=== PATIENT | male | born 1960 | race Caucasian/White ===

== ENCOUNTER 2018-06-25 06:02 | Inpatient (IN) | payer MEDICARE, OTHER ==
--- NOTE | 2018-06-25 06:47 | ER Document Report ---
ED GI/ - General Mode of Arrival: Medic Information source: Patient <LEANDRO COLLINS - Last Filed: 06/25/18 09:03> <FAY LOZADA - Last Filed: 06/25/18 09:28> - General Stated Complaint: WEAKNESS Time Seen by Provider: 06/25/18 06:32 Notes: 58-year-old male who presents to the emergency department today with complaints of "feeling sick". Patient further describes this by stating that he has had generalized myalgias and vomiting for the last 3 or 4 days. Patient states he has been having normal bowel movements. Patient denies any diarrhea, fevers, chest pain, shortness of breath, abdominal pain, or blood in his vomit or stool. (DENNIS,LEANDRO) - Related Data Allergies/Adverse Reactions: No Known Allergies Allergy (Unverified 06/25/18 06:51) Past Medical History - General Information source: Patient - Social History Smoking Status: Never Smoker Family History: Reviewed & Not Pertinent - Past Medical History Cardiac Medical History: Reports: Hx Hypertension Neurological Medical History: Reports: Hx Cerebrovascular Accident Endocrine Medical History: Reports: Hx Diabetes Mellitus Type 2 <LEANDRO COLLINS - Last Filed: 06/25/18 09:03> Review of Systems - Review of Systems Constitutional: denies: Fever EENT: No symptoms reported Cardiovascular: denies: Chest pain Respiratory: denies: Short of breath Gastrointestinal: See HPI, Vomiting. denies: Abdominal pain, Diarrhea Genitourinary: No symptoms reported Male Genitourinary: No symptoms reported Musculoskeletal: See HPI, Muscle pain Skin: No symptoms reported Hematologic/Lymphatic: No symptoms reported Neurological/Psychological: No symptoms reported -: Yes All other systems reviewed and negative <LEANDRO COLLINS - Last Filed: 06/25/18 09:03> Physical Exam <LEANDRO COLLINS - Last Filed: 06/25/18 09:03> <FAY LOZADA - Last Filed: 06/25/18 09:28> - Vital signs Vitals: Temp 98.7 F 06/25/18 06:50 - Notes Notes: PHYSICAL EXAM GENERAL: Alert, interacts well. No acute distress. Singultus intermittently. HEAD: Normocephalic, atraumatic. EYES: Pupils equal, round, and reactive to light. Extraocular movements intact. ENT: Dry oral mucosa, tongue midline. NECK: Full range of motion. Supple. Trachea midline. LUNGS: Clear to auscultation bilaterally, no wheezes, rales, or rhonchi. No respiratory distress. HEART: Regular rate and rhythm. No murmurs, gallops, or rubs. ABDOMEN: Soft, non-tender. Non-distended. Bowel sounds present in all 4 quadrants. No guarding, rigidity, or rebound. EXTREMITIES: Moves all 4 extremities spontaneously. No edema, radial and dorsalis pedis pulses 2/4 bilaterally. No cyanosis. NEUROLOGICAL: Alert and oriented x3. Normal speech. Mild right sided facial droop. PSYCH: Normal affect, normal mood. SKIN: Warm, dry, normal turgor. No rashes or lesions noted. (LEANDRO COLLINS) Course - Laboratory Result Diagrams: 06/25/18 07:50 06/25/18 07:50 <LEANDRO COLLINS - Last Filed: 06/25/18 09:03> - Laboratory Result Diagrams: 06/25/18 07:50 06/25/18 07:50 <FAY LOZADA - Last Filed: 06/25/18 09:28> - Re-evaluation Re-evalutation: 06/25/18 09:20 CBC does not show any leukocytosis, there is a mild anemia with hemoglobin 12.9 , CO2 is low at 19, there is acute renal failure with a BUN of 69 and a creatinine of 2.87, patient has a vague recollection of being told he had trouble with his kidneys in the past but no recollection of severe renal failure and does not follow with a roaster operator. Cardiac troponin is negative at 0.017. EKG is nonischemic. Vomiting has stopped and he is thirsty. Discussed the patient with Dr. Sequeira and he agrees to admit the patient to his service on the medical floor for vomiting and acute renal failure. (FAY LOZADA ) - Vital Signs Vital signs: Temp Pulse Resp BP Pulse Ox 98.7 F 06/25/18 06:50 - Laboratory Laboratory results interpreted by me: 06/25/18 06/25/18 07:50 07:50 RBC 4.34 L Hgb 12.9 L Hct 37.8 L Seg Neutrophils % 78.5 H Lymphocytes % 12.5 L Carbon Dioxide 19 L BUN 69 H Creatinine 2.87 H Est GFR ( Amer) 28 L Est GFR (Non-Af Amer) 23 L ALT 13 L - EKG Interpretation by Me Additional EKG results interpreted by me: 06/25/18 09:20 EKG shows sinus tachycardia at a rate of 101, normal axis, normal intervals, no ST segment elevations or depressions, no T wave inversions per my interpretation. (FAY LOZADA) Discharge <LEANDRO COLLINS - Last Filed: 06/25/18 09:03> - Discharge Admitting Provider: Hospitalist [facility] Unit Admitted: Medical Floor <FAY LOZADA - Last Filed: 06/25/18 09:28> - Discharge Clinical Impression: Dehydration Acute renal failure Qualifiers: Acute renal failure type: unspecified Qualified Code(s): N17.9 - Acute kidney failure, unspecified Vomiting Qualifiers: Vomiting type: unspecified Vomiting Intractability: intractable Nausea presence : with nausea Qualified Code(s): R11.2 - Nausea with vomiting, unspecified Condition: Fair Disposition: ADMITTED INPATIENT Scribe Attestation: 06/25/18 09:28 I personally performed the services described in the documentation, reviewed and edited the documentation which was dictated to the scribe in my presence, and it accurately records my words and actions. (FAY LOZADA) Scribe Documentation - Scribe Written by Scribe:: Dixie Hogan, 06/25/2018 0917 acting as scribe for :: Alley <LEANDRO COLLINS - Last Filed: 06/25/18 09:03>
[2018-06-25] MEDS ORDERED: ONDANSETRON HCL INJ/PF 4 MG/2 ML SDV IV ONE (07:00)
[2018-06-25] MEDS ORDERED: NORMAL SALINE 1000 ML 1,000 ML IV ONE (07:01)
[2018-06-25 08:01] LABS: ABSOLUTE BASOPHILS # (AUTO) 0.1 10^3/uL (0.0-0.2); ABSOLUTE LYMPHOCYTES (AUTO) 1.2 10^3/uL (0.5-4.7); ABSOLUTE MONOCYTES (AUTO) 0.8 10^3/uL (0.1-1.4); ABSOLUTE NEUT (AUTO) 7.7 10^3/uL (1.7-8.2); BASOPHILS % (AUTO) 0.6 % (0-2); EOSINOPHILS % (AUTO) 0.1 % (0-6); HEMATOCRIT 37.8 % (37.9-51.0); HEMOGLOBIN 12.9 g/dL (13.5-17.0); LYMPHOCYTES % (AUTO) 12.5 % (13-45); MEAN CORPUSCULAR HEMOGLOBIN 29.7 pg (27.0-33.4); MEAN CORPUSCULAR HGB CONC 34.1 g/dL (32.0-36.0); MEAN CORPUSCULAR VOLUME 87 fl (80-97); MONOCYTES % (AUTO) 8.3 % (3-13); PLATELET COUNT 190 10^3/uL (150-450); RED BLOOD COUNT 4.34 10^6/uL (4.35-5.55); RED CELL DISTRIBUTION WIDTH 13.1 % (11.5-14.0); SEGMENTED NEUTROPHILS % (AUTO) 78.5 % (42-78); TOTAL CELLS COUNTED % (AUTO) 100 %; WHITE BLOOD COUNT 9.8 10^3/uL (4.0-10.5)
[2018-06-25 08:28] LABS: ALANINE AMINOTRANSFERASE 13 U/L (21-72); ALBUMIN 3.8 g/dL (3.5-5.0); ALKALINE PHOSPHATASE 108 U/L (38-126); ANION GAP 18 (5-19); ASPARTATE AMINO TRANSFERASE 22 U/L (17-59); BILIRUBIN,DIRECT 0.3 mg/dL (0.0-0.4); BILIRUBIN,TOTAL 0.5 mg/dL (0.2-1.3); BLOOD UREA NITROGEN 69 mg/dL (7-20); CARBON DIOXIDE 19 mmol/L (22-30); CHLORIDE 105 mmol/L (98-107); GLUCOSE 109 mg/dL (75-110); LIPASE 257.8 U/L (23-300); POTASSIUM 4.7 mmol/L (3.6-5.0); SODIUM 141.9 mmol/L (137-145); TOTAL PROTEIN 6.5 g/dL (6.3-8.2)
[2018-06-25] MEDS ORDERED: HYDROCODONE/ACETAMINOPHEN 5-325 MG TABLET PO ONE (09:58)
[2018-06-25] MEDS ORDERED: ONDANSETRON 4 MG TAB.RAPDIS PO PRN (10:08)
[2018-06-25] MEDS ORDERED: ACETAMINOPHEN 325 MG TABLET PO PRN (10:08)
[2018-06-25] MEDS ORDERED: ONDANSETRON HCL INJ/PF 4 MG/2 ML SDV IV PRN (10:08)
[2018-06-25] MEDS ORDERED: METOPROLOL TARTRATE PF/INJ 5 MG/5 ML SDV IV PRN ×2 (10:16→16:30)
[2018-06-25] MEDS ORDERED: GLUCAGON,HUMAN RECOMB 1 MG INJ IM PRN (10:28)
[2018-06-25] MEDS ORDERED: DEXTROSE 40% GEL 15 GM TUBE PO PRN ×2 (10:28)
[2018-06-25] MEDS ORDERED: DEXTROSE 50%-WATER 25 GM/50 ML DISP.SYRIN IV PRN ×2 (10:28)
[2018-06-25] MEDS ORDERED: INSULIN LISPRO 100 UNIT/ML 3 ML VIAL SUBCUT PRN (10:28)
--- NOTE | 2018-06-25 10:35 | PDOC H&P ---
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 Patient states symptoms started suddenly without any identifying precipitating factors. Denies sicks contacts, changes in diet/food, recent illnesses. N/V associated with drinking water and is unable to keep anything down. Continues to void normally and moving bowels without issue. Denies fevers, chills, CP, SOB, abdominal pain. Notes that CVA occurred while living in [place] 2 years ago likely due to elevated HTN. Has right foot weakness and never received PT due to lack of services in [place]. Has increased difficulty walking due to deconditioning. Moved back to [place] one month ago and lives with his 2 sisters in [place], [place]. 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 Was living with 2nd in [place] but patient states that she left him around 2 months ago and took all his belongings and money. No other complaints. ER labs notable for elevated BUN/Cr. Baseline unknown. Admit to hospitalist service as observation. Past Medical History Cardiac Medical History: Reports: Hypertension Neurological Medical History: Reports: Ischemic CVA Endocrine Medical History: Reports: Diabetes Mellitus Type 2 Social History Information Source: Patient Lives with: Family Smoking Status: Never Smoker Family History Family History: Reviewed & Not Pertinent Parental Family History Reviewed: No Children Family History Reviewed: NA Sibling(s) Family History Reviewed.: NA Medication/Allergy Allergies/Adverse Reactions: No Known Allergies Allergy (Unverified 06/25/18 06:51) Review of Systems All systems: reviewed and no additional remarkable complaints except as stated - per HPI Physical Exam Vital Signs: Temp Pulse Resp BP Pulse Ox 98.7 F 34 H 186/117 H 98 06/25/18 06:50 06/25/18 10:01 06/25/18 10:01 06/25/18 10:01 General appearance: PRESENT: no acute distress, cooperative, thin Head exam: PRESENT: atraumatic, normocephalic Mouth exam: PRESENT: moist, tongue midline Neck exam: PRESENT: full ROM Respiratory exam: PRESENT: symmetrical, unlabored. ABSENT: tachypnea, wheezes Cardiovascular exam: PRESENT: RRR, +S1, +S2. ABSENT: tachycardia GI/Abdominal exam: PRESENT: normal bowel sounds, soft. ABSENT: tenderness Extremities exam: PRESENT: other - No motor strength in R foot; remainder of LE exam wnl. ABSENT: pedal edema Musculoskeletal exam: PRESENT: other - See above Neurological exam: PRESENT: alert, awake, CN II-XII grossly intact, other - Fluent speech Psychiatric exam: PRESENT: flat affect. ABSENT: depressed Skin exam: PRESENT: dry, intact Assessment & Plan - Diagnosis (1) Acute renal failure Qualifiers: Acute renal failure type: unspecified Qualified Code(s): N17.9 - Acute kidney failure, unspecified Is this a current diagnosis for this admission?: Yes Plan: Baseline Cr unknown, currently is 2.6 Likely due to acute N/V and dehydration. Baseline CKD can not be fully excluded due to underlying hx of HTN and DM - Continue IVF 1/2 NS at 125 cc/hour for 1 day - Recheck BMP in AM - Supportive care with Antiemetics ordered (2) Vomiting Qualifiers: Vomiting type: unspecified Vomiting Intractability: intractable Nausea presence: with nausea Qualified Code(s): R11.2 - Nausea with vomiting, unspecified Is this a current diagnosis for this admission?: Yes Plan: N/V * 3 days. Patient states that symptoms are slightly improved in ED - Zofran ODT and IV ordered PRN - Continue IVF given ESMER and dehydration - Diet ordered, as tolerated (3) History of CVA (cerebrovascular accident) Is this a current diagnosis for this admission?: Yes Plan: Occurred in 2016 in [place]; never received PT - Consult PT for evaluation of right foot issues and inability to ambulate - OT consulted - Started ASA 81mg daily for secondary CVA ppx (4) Inability to ambulate due to ankle or foot Is this a current diagnosis for this admission?: Yes Plan: - Per above, PT consult - Appreciate recommendations (5) HTN (hypertension) Qualifiers: Hypertension type: essential hypertension Qualified Code(s): I10 - Essential (primary) hypertension Is this a current diagnosis for this admission?: Yes Plan: Diagnosed 2 years ago - Recently established care with PCP - On DALJIT-i, BB, and Norvasc; medical reconcilliation has not been done yet - Ordered Metoprolol 25mg BID and Lisinopril 10mg daily - Can change based once home meds have been entered - PRN Lopressor 5mg IV for SBP>180 - Time Time Spent: 50 to 70 Minutes Anticipated discharge: Home with Homehealth Within: within 24 hours, within 48 hours
[2018-06-25] MEDS ORDERED: LISINOPRIL 10 MG TABLET PO SCH (11:00)
[2018-06-25] MEDS: ASPIRIN 81 MG TABLET, ENT COATED PO SCH (11:51)
[2018-06-25] MEDS: METOPROLOL TARTRATE 25 MG TABLET PO SCH ×2 (11:52→21:55)
[2018-06-25] MEDS: 1/2 NORMAL SALINE 1,000 ML IV PRN ×2 (15:54→22:03)
[2018-06-25] MEDS: AMLODIPINE BESYLATE 10 MG TABLET PO SCH (16:53)
--- NOTE | 2018-06-25 19:17 | EKG REPORT ---
SEVERITY:- BORDERLINE ECG - SINUS TACHYCARDIA PROBABLE LEFT ATRIAL ABNORMALITY : Confirmed by: Marlys Borden MD 25-Jun-2018 19:17:21
[2018-06-25] MEDS ORDERED: GABAPENTIN 100 MG CAPSULE PO ONE (23:00)
[2018-06-26 06:27] LABS: ANION GAP 16 (5-19); BLOOD UREA NITROGEN 59 mg/dL (7-20); CALCIUM 8.5 mg/dL (8.4-10.2); CARBON DIOXIDE 16 mmol/L (22-30); CHLORIDE 107 mmol/L (98-107); GLUCOSE 89 mg/dL (75-110); SODIUM 138.7 mmol/L (137-145)
[2018-06-26] MEDS: 1/2 NORMAL SALINE 1,000 ML IV PRN (08:37)
[2018-06-26] MEDS: ENOXAPARIN SODIUM INJ 40 MG/0.4 ML DISP.SYRIN SUBCUT SCH (11:09)
[2018-06-26] MEDS: ASPIRIN 81 MG TABLET, ENT COATED PO SCH (11:09)
[2018-06-26] MEDS: LISINOPRIL 10 MG TABLET PO SCH (11:10)
[2018-06-26] MEDS: METOPROLOL TARTRATE 25 MG TABLET PO SCH ×2 (11:10→21:23)
[2018-06-26] MEDS: GABAPENTIN 100 MG CAPSULE PO SCH ×2 (11:10→18:11)
[2018-06-26] MEDS: AMLODIPINE BESYLATE 10 MG TABLET PO SCH (11:10)
--- NOTE | 2018-06-26 14:04 | PDOC PROGRESS REPORT ---
Subjective Progress Note for:: 06/26/18 Subjective:: No adverse events overnight. No new complaints. Vital signs been stable. His appetite has definitely improved. He has not had any more nausea or vomiting. Reason For Visit: INTRACTABLE NAUSEA AND VOMITING Physical Exam Vital Signs: Temp Pulse Resp BP Pulse Ox 98.0 F 94 18 156/85 H 100 06/26/18 08:28 06/26/18 08:28 06/26/18 08:28 06/26/18 08:28 06/26/18 08:28 Intake & Output 06/25/18 06/26/18 06/27/18 06:59 06:59 06:59 Intake Total 1769 Output Total 1250 Balance 519 Weight 51.2 kg General appearance: PRESENT: no acute distress, cooperative, thin Respiratory exam: PRESENT: symmetrical, unlabored. ABSENT: tachypnea, wheezes Cardiovascular exam: PRESENT: RRR, +S1, +S2. ABSENT: tachycardia GI/Abdominal exam: PRESENT: normal bowel sounds, soft. ABSENT: tenderness Extremities exam: PRESENT: other - No motor strength in R foot; remainder of LE exam wnl. ABSENT: pedal edema Neurological exam: PRESENT: alert, awake, oriented x3 Skin exam: PRESENT: dry, intact Results Laboratory Results: 06/26/18 05:59 06/26/18 05:59 Sodium 138.7 Potassium 4.0 Chloride 107 Carbon Dioxide 16 L Anion Gap 16 BUN 59 H Creatinine 2.36 H Est GFR ( Amer) 34 L Est GFR (Non-Af Amer) 28 L Glucose 89 Calcium 8.5 06/25/18 11:40 Troponin I 0.015 Assessment & Plan - Diagnosis (1) Acute renal failure Qualifiers: Acute renal failure type: unspecified Qualified Code(s): N17.9 - Acute kidney failure, unspecified Is this a current diagnosis for this admission?: Yes Plan: Prerenal azotemia is suspected, but there could be a component of ATN. His BUN and creatinine did improve after some hydration so we will continue IV fluids. This improvement does indicate that this is potentially a reversible deficit. Because of the severity and the need for IV fluids, I think he meets criteria for inpatient status and I will make that change in the chart. (2) Inability to ambulate due to ankle or foot Is this a current diagnosis for this admission?: Yes Plan: Continuing to work with therapy, may be a candidate for acute rehab. Will consult with case management for placement. (3) HTN (hypertension) Qualifiers: Hypertension type: essential hypertension Qualified Code(s): I10 - Essential (primary) hypertension Is this a current diagnosis for this admission?: Yes Plan: We will continue to need further monitoring and adjustment of his blood pressure medication. - Time Time Spent with patient: 25-34 minutes - Inpatient Certification Based on my medical assessment, after consideration of the patient's comorbidities, presenting symptoms, or acuity I expect that the services needed warrant INPATIENT care.: Yes I certify that my determination is in accordance with my understanding of Medicare's requirements for reasonable and necessary INPATIENT services [42 CFR 412.3e].: Yes Medical Necessity: Need For IV Fluids, Risk of Complication if Not Cared For in Hospital
[2018-06-27] MEDS: METOPROLOL TARTRATE 25 MG TABLET PO SCH ×2 (09:51→22:49)
[2018-06-27] MEDS: ASPIRIN 81 MG TABLET, ENT COATED PO SCH (09:51)
[2018-06-27] MEDS: GABAPENTIN 100 MG CAPSULE PO SCH ×2 (09:51→17:41)
[2018-06-27] MEDS: ENOXAPARIN SODIUM INJ 40 MG/0.4 ML DISP.SYRIN SUBCUT SCH (09:51)
[2018-06-27] MEDS: AMLODIPINE BESYLATE 10 MG TABLET PO SCH (09:51)
[2018-06-27 10:23] LABS: ANION GAP 11 (5-19); BLOOD UREA NITROGEN 47 mg/dL (7-20); CALCIUM 8.3 mg/dL (8.4-10.2); CARBON DIOXIDE 22 mmol/L (22-30); CHLORIDE 105 mmol/L (98-107); GLUCOSE 195 mg/dL (75-110); POTASSIUM 4.1 mmol/L (3.6-5.0); SODIUM 137.9 mmol/L (137-145)
[2018-06-27] MEDS: LISINOPRIL 10 MG TABLET PO SCH (10:44)
--- NOTE | 2018-06-27 13:52 | PDOC PROGRESS REPORT ---
Subjective Progress Note for:: 06/27/18 Subjective:: No adverse events overnight. No new complaints. Vital signs been stable. His appetite is still good. He has not had any more nausea or vomiting. Somehow his fluids did not get continued yesterday. Reason For Visit: INTRACTABLE NAUSEA AND VOMITING Physical Exam Vital Signs: Temp Pulse Resp BP Pulse Ox 98.4 F 72 16 130/89 H 99 06/27/18 11:51 06/27/18 11:51 06/27/18 11:51 06/27/18 11:51 06/27/18 11:51 Intake & Output 06/26/18 06/27/18 06/28/18 06:59 06:59 06:59 Intake Total 1769 1000 Output Total 1250 950 Balance 519 50 Weight 51.2 kg 57.1 kg General appearance: PRESENT: no acute distress, cooperative, thin Respiratory exam: PRESENT: symmetrical, unlabored. ABSENT: tachypnea, wheezes Cardiovascular exam: PRESENT: RRR, +S1, +S2. ABSENT: tachycardia GI/Abdominal exam: PRESENT: normal bowel sounds, soft. ABSENT: tenderness Extremities exam: PRESENT: other - No motor strength in R foot; remainder of LE exam wnl. ABSENT: pedal edema Neurological exam: PRESENT: alert, awake, oriented x3 Skin exam: PRESENT: dry, intact Results Laboratory Results: 06/27/18 09:39 06/27/18 09:39 Sodium 137.9 Potassium 4.1 Chloride 105 Carbon Dioxide 22 Anion Gap 11 BUN 47 H Creatinine 2.36 H Est GFR ( Amer) 34 L Est GFR (Non-Af Amer) 28 L Glucose 195 H Calcium 8.3 L 06/25/18 11:40 Troponin I 0.015 Assessment & Plan - Diagnosis (1) Acute renal failure Qualifiers: Acute renal failure type: unspecified Qualified Code(s): N17.9 - Acute kidney failure, unspecified Is this a current diagnosis for this admission?: Yes Plan: Prerenal azotemia is suspected, but there could be a component of ATN. His BUN and creatinine did improve after some hydration so we will continue IV fluids; somehow they did not get continued yesterday but I have reordered them. The full complement should return tomorrow after the holiday weekend. (2) Inability to ambulate due to ankle or foot Is this a current diagnosis for this admission?: Yes Plan: Continuing to work with therapy, may be a candidate for acute rehab. Will consult with case management for placement. (3) HTN (hypertension) Qualifiers: Hypertension type: essential hypertension Qualified Code(s): I10 - Essential (primary) hypertension Is this a current diagnosis for this admission?: Yes Plan: We will continue to need further monitoring and adjustment of his blood pressure medication. - Time Time Spent with patient: 25-34 minutes
[2018-06-27] MEDS: NORMAL SALINE 1000 ML 1,000 ML IV PRN (14:37)
[2018-06-28] MEDS: NORMAL SALINE 1000 ML 1,000 ML IV PRN ×2 (05:39→21:10)
[2018-06-28 06:55] LABS: ANION GAP 8 (5-19); BLOOD UREA NITROGEN 38 mg/dL (7-20); CALCIUM 8.3 mg/dL (8.4-10.2); CARBON DIOXIDE 23 mmol/L (22-30); CHLORIDE 110 mmol/L (98-107); GLUCOSE 122 mg/dL (75-110); POTASSIUM 4.3 mmol/L (3.6-5.0); SODIUM 141.4 mmol/L (137-145)
[2018-06-28] MEDS: METOPROLOL TARTRATE 25 MG TABLET PO SCH ×2 (09:45→21:08)
[2018-06-28] MEDS: ENOXAPARIN SODIUM INJ 40 MG/0.4 ML DISP.SYRIN SUBCUT SCH (09:46)
[2018-06-28] MEDS: LISINOPRIL 10 MG TABLET PO SCH (09:46)
[2018-06-28] MEDS: GABAPENTIN 100 MG CAPSULE PO SCH ×2 (09:46→17:14)
[2018-06-28] MEDS: AMLODIPINE BESYLATE 10 MG TABLET PO SCH (09:46)
[2018-06-28] MEDS: ASPIRIN 81 MG TABLET, ENT COATED PO SCH (09:56)
[2018-06-28] MEDS ORDERED: ONDANSETRON HCL INJ/PF 4 MG/2 ML SDV IV PRN (15:30)
[2018-06-28] MEDS ORDERED: ONDANSETRON 4 MG TAB.RAPDIS PO PRN (15:30)
--- NOTE | 2018-06-28 17:33 | PDOC PROGRESS REPORT ---
Subjective Progress Note for:: 06/28/18 Subjective:: Patient feels better with the much better appetite. He was able to tolerate his diet today however patient still complaining of weakness, and he says he has not ambulated O been out of bed since admission. Patient apparently suffered a recent stroke and it appears is been weak since then. A Reason For Visit: INTRACTABLE NAUSEA AND VOMITING Physical Exam Vital Signs: Temp Pulse Resp BP Pulse Ox 98.7 F 77 18 135/94 H 95 06/28/18 15:45 06/28/18 15:45 06/28/18 15:45 06/28/18 15:45 06/28/18 15:45 Intake & Output 06/27/18 06/28/18 06/29/18 06:59 06:59 06:59 Intake Total 1000 1170 550 Output Total 450 1450 1100 Balance 550 -280 -550 Weight 57.1 kg 58.1 kg General appearance: PRESENT: no acute distress, cooperative Head exam: PRESENT: atraumatic Neck exam: ABSENT: carotid bruit, JVD, lymphadenopathy, thyromegaly Respiratory exam: PRESENT: clear to auscultation jerardo. ABSENT: rales, rhonchi, wheezes Cardiovascular exam: PRESENT: RRR. ABSENT: diastolic murmur, rubs, systolic murmur Rectal exam: PRESENT: deferred Musculoskeletal exam: PRESENT: deformity - R foot inversion Neurological exam: PRESENT: alert, awake, oriented to person, oriented to place , motor sensory deficit - strength RLE Results Laboratory Results: 06/28/18 06:22 06/28/18 06:22 Sodium 141.4 Potassium 4.3 Chloride 110 H Carbon Dioxide 23 Anion Gap 8 BUN 38 H Creatinine 2.18 H Est GFR ( Amer) 38 L Est GFR (Non-Af Amer) 31 L Glucose 122 H Calcium 8.3 L Assessment & Plan - Diagnosis (1) Acute renal failure Qualifiers: Acute renal failure type: unspecified Qualified Code(s): N17.9 - Acute kidney failure, unspecified Is this a current diagnosis for this admission?: Yes (3) HTN (hypertension) Qualifiers: Hypertension type: essential hypertension Qualified Code(s): I10 - Essential (primary) hypertension Is this a current diagnosis for this admission?: Yes (4) History of CVA (cerebrovascular accident) Is this a current diagnosis for this admission?: Yes (5) Inability to ambulate due to ankle or foot Is this a current diagnosis for this admission?: Yes (6) Vomiting Qualifiers: Vomiting type: unspecified Vomiting Intractability: intractable Nausea presence: with nausea Qualified Code(s): R11.2 - Nausea with vomiting, unspecified Is this a current diagnosis for this admission?: Yes - Time Time Spent with patient: 15-24 minutes Medications reviewed and adjusted accordingly: Yes Anticipated discharge: Acute Rehab Within: within 48 hours - Inpatient Certification Based on my medical assessment, after consideration of the patient's comorbidities, presenting symptoms, or acuity I expect that the services needed warrant INPATIENT care.: Yes Medical Necessity: Need Close Monitoring Due to Risk of Patient Decompensation, Risk of Complication if Not Cared For in Hospital - Plan Summary Plan Summary: Acute renal failure with kidney function continues to improve Will check BMP in am Generalized weakness will need physical therapy Inability to ambulate patient is to be evaluated by acute inpatient rehab, Dr. Espinosa in a.m. it appears patient will benefit greatly such facility Hypertension we will adjust his medications as needed
[2018-06-29 07:07] LABS: ANION GAP 8 (5-19); BLOOD UREA NITROGEN 34 mg/dL (7-20); CALCIUM 8.3 mg/dL (8.4-10.2); CARBON DIOXIDE 22 mmol/L (22-30); CHLORIDE 111 mmol/L (98-107); GLUCOSE 116 mg/dL (75-110); POTASSIUM 4.5 mmol/L (3.6-5.0); SODIUM 140.9 mmol/L (137-145)
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
[2018-06-29] MEDS: LISINOPRIL 10 MG TABLET PO SCH (10:52)
[2018-06-29] MEDS: AMLODIPINE BESYLATE 10 MG TABLET PO SCH (10:52)
[2018-06-29] MEDS: METOPROLOL TARTRATE 25 MG TABLET PO SCH ×2 (10:53→21:14)
[2018-06-29] MEDS: GABAPENTIN 100 MG CAPSULE PO SCH ×2 (10:53→17:54)
[2018-06-29] MEDS: ASPIRIN 81 MG TABLET, ENT COATED PO SCH (10:53)
[2018-06-29] MEDS: ENOXAPARIN SODIUM INJ 40 MG/0.4 ML DISP.SYRIN SUBCUT SCH (10:55)
--- NOTE | 2018-06-29 18:13 | PDOC PROGRESS REPORT ---
Subjective Progress Note for:: 06/29/18 Subjective:: Patient feels better with the much better appetite. He was able to tolerate his diet today however patient still complaining of weakness, and he says he has not ambulated or been out of bed since admission. Patient apparently suffered a recent stroke and it appears is been weak since then. Patient seen by PM and R today and plan is for dc to acute rehab in am A Reason For Visit: INTRACTABLE NAUSEA AND VOMITING Physical Exam Vital Signs: Temp Pulse Resp BP Pulse Ox 97.9 F 73 18 136/91 H 100 06/29/18 15:20 06/29/18 15:20 06/29/18 15:20 06/29/18 15:20 06/29/18 15:20 Intake & Output 06/28/18 06/29/18 06/30/18 06:59 06:59 06:59 Intake Total 1170 1950 1320 Output Total 1450 2450 1000 Balance -280 -500 320 Weight 58.1 kg 60.6 kg General appearance: PRESENT: no acute distress, well-nourished Head exam: PRESENT: atraumatic, normocephalic Eye exam: PRESENT: conjunctiva pink, EOMI, PERRLA. ABSENT: scleral icterus Ear exam: PRESENT: normal external ear exam Mouth exam: PRESENT: moist, tongue midline Neck exam: ABSENT: carotid bruit, JVD, lymphadenopathy, thyromegaly Respiratory exam: PRESENT: clear to auscultation jerardo. ABSENT: rales, rhonchi, wheezes Cardiovascular exam: PRESENT: RRR. ABSENT: diastolic murmur, rubs, systolic murmur Pulses: PRESENT: normal dorsalis pedis pul Vascular exam: PRESENT: normal capillary refill GI/Abdominal exam: PRESENT: normal bowel sounds, soft. ABSENT: distended, guarding, mass, organolmegaly, rebound, tenderness Rectal exam: PRESENT: deferred Extremities exam: PRESENT: full ROM. ABSENT: calf tenderness, clubbing, pedal edema Musculoskeletal exam: PRESENT: deformity - RLE Neurological exam: PRESENT: alert, awake, oriented to person, oriented to place , oriented to time, oriented to situation, motor sensory deficit Psychiatric exam: PRESENT: appropriate affect, normal mood. ABSENT: homicidal ideation, suicidal ideation Skin exam: PRESENT: dry, intact, warm. ABSENT: cyanosis, rash Results Laboratory Results: 06/29/18 05:59 06/29/18 05:59 Sodium 140.9 Potassium 4.5 Chloride 111 H Carbon Dioxide 22 Anion Gap 8 BUN 34 H Creatinine 2.21 H Est GFR ( Amer) 37 L Est GFR (Non-Af Amer) 31 L Glucose 116 H Calcium 8.3 L Assessment & Plan - Diagnosis (1) Acute renal failure Qualifiers: Acute renal failure type: unspecified Qualified Code(s): N17.9 - Acute kidney failure, unspecified Is this a current diagnosis for this admission?: Yes (3) HTN (hypertension) Qualifiers: Hypertension type: essential hypertension Qualified Code(s): I10 - Essential (primary) hypertension Is this a current diagnosis for this admission?: Yes (4) History of CVA (cerebrovascular accident) Is this a current diagnosis for this admission?: Yes (5) Inability to ambulate due to ankle or foot Is this a current diagnosis for this admission?: Yes (6) Vomiting Qualifiers: Vomiting type: unspecified Vomiting Intractability: intractable Nausea presence: with nausea Qualified Code(s): R11.2 - Nausea with vomiting, unspecified Is this a current diagnosis for this admission?: Yes - Time Time Spent with patient: 15-24 minutes Medications reviewed and adjusted accordingly: Yes Anticipated discharge: Acute Rehab Within: within 24 hours - Inpatient Certification Based on my medical assessment, after consideration of the patient's comorbidities, presenting symptoms, or acuity I expect that the services needed warrant INPATIENT care.: Yes Medical Necessity: Need Close Monitoring Due to Risk of Patient Decompensation, Risk of Complication if Not Cared For in Hospital - Plan Summary Plan Summary: Acute renal failure with kidney function continues to improve Generalized weakness will need Acute rehab Inability to ambulate patient is accepted to [facility] Hypertension we will adjust his medications as needed
[2018-06-30 07:27] LABS: ANION GAP 10 (5-19); BLOOD UREA NITROGEN 42 mg/dL (7-20); CALCIUM 8.5 mg/dL (8.4-10.2); CARBON DIOXIDE 22 mmol/L (22-30); CHLORIDE 113 mmol/L (98-107); GLUCOSE 120 mg/dL (75-110); SODIUM 144.5 mmol/L (137-145)
--- NOTE | 2018-06-30 07:44 | PDOC TRANSFER SUMMARY ---
General - Admit/Disc Date/PCP Admission Date/Primary Care Provider: 06/26/18 16:43 Discharge Date: 06/30/18 - Discharge Diagnosis (1) Vomiting Is this a current diagnosis for this admission?: Yes (2) Dehydration Is this a current diagnosis for this admission?: Yes (3) HTN (hypertension) Is this a current diagnosis for this admission?: Yes (4) History of CVA (cerebrovascular accident) Is this a current diagnosis for this admission?: Yes (5) Inability to ambulate due to ankle or foot Is this a current diagnosis for this admission?: Yes (6) CKD (chronic kidney disease) stage 4, GFR 15-29 ml/min Is this a current diagnosis for this admission?: Yes - Additional Information Resuscitation Status: Full Code Home Medications: Amlodipine Besylate [Norvasc 10 mg Tablet] 10 mg PO DAILY 06/25/18 Aspirin [Ecotrin 81 mg EC Tablet] 81 mg PO DAILY tabec 06/30/18 Gabapentin [Neurontin 100 mg Capsule] 100 mg PO BID capsule 06/30/18 Insulin Lispro [Humalog Insulin (Lispro) 100 unit/mL] 0 - 12 unit SUBCUT ACHSP PRN unit 06/30/18 Lisinopril [Prinivil 10 mg Tablet] 20 mg PO DAILY tablet 06/30/18 Metoprolol Tartrate [Lopressor 25 mg Tablet] 25 mg PO Q12 tablet 06/30/18 History of Present Illness Admission Date/PCP: 06/26/18 16:43 History of Present Illness: HCRISSY NANCE is a 58 year old male with history of HTN, DM, and CVA s/p 2015 with residual right leg weakness, who presents to the ED with 3 day history of intractable nausea and vomiting. Patient states symptoms started suddenly without any identifying precipitating factors. Denies sicks contacts, changes in diet/food, recent illnesses. N/V associated with drinking water and is unable to keep anything down. Continues to void normally and moving bowels without issue. Denies fevers, chills, CP, SOB , abdominal pain. Notes that CVA occurred while living in [place] 2 years ago likely due to elevated HTN. Has right foot weakness and never received PT due to lack of services in [place]. Has increased difficulty walking due to deconditioning. Moved back to [place] one month ago and lives with his 2 sisters in [place], [place]. 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 Was living with 2nd in [place] but patient states that she left him around 2 months ago and took all his belongings and money. No other complaints. Hospital Course Hospital Course: This patient was admitted with inability to ambulate and generalized weakness. He also had intractable nausea and vomiting. He was hydrated with IV fluids with resolution of his vomiting. Patient kidney function was found to be abnormal and although initially was thought to be an AK I however despite intravenous fluids there was no change in his kidney function so this is most likely chronic kidney disease. Patient had an old CVA without residual right- sided weakness which does seem to worsen and he did receive physical therapy in hospital and subsequent evaluation for acute inpatient rehabilitation which she has been discharged to as it is felt he will benefit from this. Patient will need follow-up with his PCP and likely referral to nephrology for further evaluation of his kidney function. Patient was on metformin prior to admission but this is currently on hold due to his kidney function. He will need to be restarted on hypoglycemic agent prior to discharge from rehab Physical Exam Vital Signs: Temp Pulse Resp BP Pulse Ox 98.5 F 71 16 131/84 H 98 06/30/18 04:50 06/30/18 04:50 06/30/18 04:50 06/30/18 04:50 06/30/18 04:50 Intake & Output 06/29/18 06/30/18 07/01/18 06:59 06:59 06:59 Intake Total 1950 1320 Output Total 2450 2100 Balance -500 -780 Weight 60.6 kg 60.5 kg General appearance: PRESENT: no acute distress, well-developed, well-nourished Head exam: PRESENT: atraumatic, normocephalic Eye exam: PRESENT: conjunctiva pink, EOMI, PERRLA. ABSENT: scleral icterus Ear exam: PRESENT: normal external ear exam Mouth exam: PRESENT: moist, tongue midline Neck exam: ABSENT: carotid bruit, JVD, lymphadenopathy, thyromegaly Respiratory exam: PRESENT: clear to auscultation jerardo. ABSENT: rales, rhonchi, wheezes Cardiovascular exam: PRESENT: RRR. ABSENT: diastolic murmur, rubs, systolic murmur Pulses: PRESENT: normal dorsalis pedis pul Vascular exam: PRESENT: normal capillary refill GI/Abdominal exam: PRESENT: normal bowel sounds, soft. ABSENT: distended, guarding, mass, organolmegaly, rebound, tenderness Rectal exam: PRESENT: deferred Extremities exam: PRESENT: full ROM. ABSENT: calf tenderness, clubbing, pedal edema Musculoskeletal exam: PRESENT: other - Right foot inversion Neurological exam: PRESENT: alert, awake, oriented to person, oriented to place , oriented to time, oriented to situation, motor sensory deficit - Right lower extremity weakness Psychiatric exam: PRESENT: appropriate affect, normal mood. ABSENT: homicidal ideation, suicidal ideation Skin exam: PRESENT: dry, intact, warm. ABSENT: cyanosis, rash Results Laboratory Results: 06/30/18 05:22 06/30/18 05:22 Sodium 144.5 Potassium 5.0 Chloride 113 H Carbon Dioxide 22 Anion Gap 10 BUN 42 H Creatinine 2.52 H Est GFR ( Amer) 32 L Est GFR (Non-Af Amer) 26 L Glucose 120 H Calcium 8.5 Transfer Plan - Disposition Transfer Plan: Acute inpatient rehabilitation at [facility] - Time Spent with Patient Time spent with patient: Greater than 30 Minutes Qualifiers - * PATIENT BEING DISCHARGED WITH ANY OF THE FOLLOWING DIAGNOSIS: No Plan Time Spent: Greater than 30 Minutes
[2018-06-30 08:49] VITALS: BP 164/98
[2018-06-30] MEDS: GABAPENTIN 100 MG CAPSULE PO SCH (10:05)
[2018-06-30] MEDS: AMLODIPINE BESYLATE 10 MG TABLET PO SCH (10:05)
[2018-06-30] MEDS: LISINOPRIL 10 MG TABLET PO SCH (10:05)
[2018-06-30] MEDS: ASPIRIN 81 MG TABLET, ENT COATED PO SCH (10:05)
[2018-06-30] MEDS: METOPROLOL TARTRATE 25 MG TABLET PO SCH (10:05)
== END 2018-06-30 11:06 | DRG 641 ==
LOC: ER 06:02 → INTOOBSV 09:28 → EH 09:28 → 2N 14:45 → OBSVTOIN 06-26 16:43
PROVIDERS: ADMIT Internal Medicine; ATTEND Internal Medicine
DX: E86.0 Dehydration (principal); N18.4 Chronic kidney disease, stage 4 (severe); I69.341 Monoplegia of lower limb following cerebral infarction affecting right dominant side; I12.9 Hypertensive chronic kidney disease with stage 1 through stage 4 chronic kidney disease, or unspecified chronic kidney disease; E11.22 Type 2 diabetes mellitus with diabetic chronic kidney disease; Z79.82 Long term (current) use of aspirin; Z79.899 Other long term (current) drug therapy; Z79.84 Long term (current) use of oral hypoglycemic drugs; R26.2 Difficulty in walking, not elsewhere classified
CPT/HCPCS: 36415; 80048; 80053; 82962; 83690; 84484; 85025; 93005; 93010; 96361; 96374; 99285; G0378; G8978-GP; G8979-GP; G8987-GO; G8988-GO; J1650; J2405; J3490; J7030; L4350; S0119

== ENCOUNTER 2018-07-11 02:54 | Emergency (ER) | payer MEDICARE, OTHER ==
[2018-07-11] MEDS ORDERED: LIDOCAINE 1%/EPINEPHRINE INJ 20 ML VIAL INJ ONE (03:12)
--- NOTE | 2018-07-11 03:18 | ER Document Report ---
ED Fall - General Chief Complaint: Fall Stated Complaint: FALL Time Seen by Provider: 07/11/18 02:59 Notes: Patient is a 58-year-old male that comes by EMS from home for chief complaint of fall. EMS reports the patient was trying to get out of bed and fell, he hit his head on the floor causing a laceration to the scalp above the right ear. Patient denies vomiting, loss of consciousness, denies any areas of pain. He is not on a blood thinner except for aspirin. Past medical history of CVA and chronic right-sided weakness. He is up-to-date on his tetanus within 5 years he reports. TRAVEL OUTSIDE OF THE [place] IN LAST 30 DAYS: No COUNTRY TRAVELED TO/FROM: [employer] - Related data Allergies/Adverse Reactions: No Known Allergies Allergy (Unverified 06/25/18 06:51) Past Medical History - General Information source: Patient, Relative, Emergency Med Personnel - Social History Smoking Status: Never Smoker Frequency of alcohol use: None Drug Abuse: None Lives with: Family Family History: Reviewed & Not Pertinent - Past Medical History Cardiac Medical History: Reports: Hx Hypertension - 2016 Denies: Hx Congestive Heart Failure, Hx Heart Attack Pulmonary Medical History: Denies: Hx Asthma, Hx Bronchitis, Hx COPD, Hx Pneumonia, Hx Tuberculosis Neurological Medical History: Reports: Hx Cerebrovascular Accident. Denies: Hx Seizures Endocrine Medical History: Reports: Hx Diabetes Mellitus Type 2 Renal/ Medical History: Denies: Hx Benign Prostatic Hyperplasia, Hx End Stage Renal Disease, Hx Kidney Stones, Hx Peritoneal Dialysis GI Medical History: Denies: Hx Cirrhosis, Hx Gastroesophageal Reflux Disease, Hx Ulcer Musculoskeletal Medical History: Denies Hx Arthritis, Denies Hx Multiple Sclerosis Psychiatric Medical History: Denies: Hx Bipolar Disorder, Hx Depression, Hx Schizophrenia Past Surgical History: Reports: Other - Left eye surgery - Immunizations Hx Diphtheria, Pertussis, Tetanus Vaccination: Yes Review of Systems - Review of Systems Constitutional: No symptoms reported EENT: No symptoms reported Cardiovascular: No symptoms reported Respiratory: No symptoms reported Gastrointestinal: No symptoms reported Genitourinary: No symptoms reported Male Genitourinary: No symptoms reported Musculoskeletal: See HPI Skin: See HPI Hematologic/Lymphatic: No symptoms reported Neurological/Psychological: See HPI Physical Exam - Vital signs Vitals: Resp Pulse Ox 13 99 07/11/18 03:08 07/11/18 03:08 - Notes Notes: GENERAL: Alert, interacts well. No acute distress. HEAD: Normocephalic. There is a irregular 1 cm laceration over the right temporal area at the hairline, mild amount of ecchymosis, no swelling. No other signs of trauma over the head. EYES: Pupils equal, round, and reactive to light. Extraocular movements intact. ENT: Oral mucosa moist, tongue midline. Oropharynx unremarkable. Airway patent. Nares patent, no nasal septal hematoma, TM's intact. NECK: Full range of motion. Supple. Trachea midline. LUNGS: Clear to auscultation bilaterally, no wheezes, rales, or rhonchi. No respiratory distress. No signs of trauma to the chest, nontender. HEART: Regular rate and rhythm. No murmur ABDOMEN: Soft, non-tender. Non-distended. Bowel sounds present in all 4 quadrants. GENITOURINARY: Deferred EXTREMITIES: Moves all 4 extremities spontaneously. Right sided weakness especially in the right leg. No edema, normal radial and dorsalis pedis pulses bilaterally. No cyanosis. BACK: Questionable minimal cervical tenderness. No thoracic, lumbar midline tenderness. No saddle anesthesia, normal distal neurovascular exam. No signs of trauma. NEUROLOGICAL: Alert and oriented to person and place, cannot remember some events. Normal speech. [cranial nerves II through XII grossly intact]. PSYCH: Normal affect, normal mood. SKIN: Warm, dry, normal turgor. No rashes or lesions noted. Course - Re-evaluation Re-evalutation: Family came to bedside. They state that after patient fell he was repeating questions over and over, he seemed confused. This has resolved, patient is oriented to time, place, however he does not remember the fall. He is oriented and otherwise and has normal neurological exam except for his chronic deficits including right-sided weakness and partial blindness. 07/11/18 CAT scan showing small subdural hemorrhage, questionable area around the old stroke but no obvious acute hemorrhage in this location. No other acute findings. Laceration repaired. On reevaluation patient has no change, he is oriented to person, place, time. He still does not remember the event. GCS of 15. Discussed with Dr. Morales. Discussed with family, patient has been both to [facility] and [facility], initially spoke with [facility], roads are blocked due to snow. Discussed with family again, will discuss with [facility] for transport. Spoke with Dr. Mcgrath, hospitalist, patient will be accepted for transfer. 07/11/18 06:57 Patient with no change from previous. GCS of 15. Transport should be here within the hour. 07/11/18 07:48 Transport team is here for patient. Reevaluated patient at bedside. No change in patient's status. Patient with no current complaints. Stable for transport. - Vital Signs Vital signs: Temp Pulse Resp BP Pulse Ox 97.7 F 13 130/80 H 98 07/11/18 06:59 07/11/18 07:01 07/11/18 07:01 07/11/18 07:01 - Laboratory Result Diagrams: 07/11/18 04:30 07/11/18 04:30 Laboratory results interpreted by me: 07/11/18 07/11/18 04:30 04:30 RBC 3.21 L Hgb 9.6 L Hct 28.2 L Lymphocytes % 11.8 L Potassium 5.4 H Chloride 112 H Carbon Dioxide 21 L BUN 46 H Creatinine 2.63 H Est GFR ( Amer) 30 L Est GFR (Non-Af Amer) 25 L Glucose 120 H Calcium 8.3 L Procedures - Laceration/Wound Repair scalp Wound length (cm): 1.5 Wound's Depth, Shape: Irregular, Flap Laceration pre-procedure: Sterile PPE donned, Sterile drapes applied, Shur- Clens applied Anesthetic type: 1% Lidocaine w/epi Volume Anesthetic (mLs): 4 Wound explored: Clean, No foreign body removed Wound Repaired With: Sutures Suture Size/Type: 5:0, Nylon Number of Sutures: 4 Layer Closure?: No Post-procedure wound care: Sterile dressing applied Post-procedure NV exam normal: Yes Complications: No Critical Care Note - Critical Care Note Total time excluding time spent on procedures (mins): 35 - subdural hemorrhage Comments: Please allow 35 minutes of critical care time for evaluation and management of patient with fall, laceration, subdural hemorrhage. Time spent discussion with family. Time spent with discussion with tertiary center and transfer patient. Multiple re-evaluations. Discharge - Discharge Clinical Impression: Subdural hemorrhage Fall Qualifiers: Encounter type: initial encounter Qualified Code(s): W19.XXXA - Unspecified fall, initial encounter Scalp laceration Qualifiers: Encounter type: initial encounter Qualified Code(s): S01.01XA - Laceration without foreign body of scalp, initial encounter Condition: Stable [facility]
--- NOTE | 2018-07-11 03:57 | RADIOLOGY REPORT (SQ) ---
EXAM DESCRIPTION: CT CERVICAL SPINE WITHOUT IV CONTRAST COMPLETED DATE/TME: 07/11/2018 03:12 CLINICAL HISTORY: 58 years Male, fall, head injury, pain Comparison: None. Technique: No contrast. Coronal and sagittal reformat. This exam was performed according to our departmental dose-optimization program, which includes automated exposure control, adjustment of the mA and/or kV according to patient size and/or use of iterative reconstruction technique.[facility]: Dose Right [facility]: CareDose [facility]: Dose Right [facility]: Teradose 4D [facility]: iVilka LIMITATIONS: None Findings: Normal alignment. Normal curvature. No fracture. Normal vertebral heights. Moderate disc desiccation at the C5-C7 levels. Mild upper cervical spondylosis. Partially imaged nuchal soft tissues, inferior cranium, and upper thorax appear otherwise grossly intact. IMPRESSION: No acute findings.
--- NOTE | 2018-07-11 04:05 | RADIOLOGY REPORT (SQ) ---
CT head without contrast on 07/11/2018 at 3:30 AM CLINICAL INDICATION: Fall, head injury, confusion TECHNIQUE: Multiple axial images are obtained throughout the head without the administration of contrast. This exam was performed according to our departmental dose-optimization program, which includes automated exposure control, adjustment of the mA and/or kV according to patient size and/or use of iterative reconstruction technique. Total DLP is 1070.38 mGy*cm. COMPARISON: None FINDINGS: There is generalized cerebral atrophy. There is old left posterior frontal/parietal medial infarct in the left [employer] territory. Within this infarct there is a small area of high density in the medial left parietal lobe seen best on axial image 25 and coronal image 47. This may represent small area of gliosis or hemorrhage of unknown chronicity. There is no CT evidence of acute infarct. There is minimal right occipital scalp soft tissue swelling. There is very small acute subdural hemorrhage along the undersurface of the left tentorium seen well on coronal image 43 measuring 4-5 mm. This extends adjacent to the left quadrigeminal plate cistern. No other hemorrhage is noted. There is no mass, mass effect or midline shift. No bony abnormality is noted. IMPRESSION: 1. Very small acute left-sided subdural hemorrhage along the undersurface of the left tentorium as above. Dr. Taveras in the emergency Department was made aware of this finding by myself by phone on 07/11/2018 at 4:00 AM eastern time. 2. Atrophy with old left-sided infarct with small area of high density either gliosis or hemorrhage within the old left RV [employer] territory infarct of unknown chronicity.
[2018-07-11] MEDS ORDERED: MORPHINE SULFATE 10 MG/ML INJ IV ONE (04:10)
[2018-07-11 05:04] LABS: ABSOLUTE BASOPHILS # (AUTO) 0.1 10^3/uL (0.0-0.2); ABSOLUTE EOSINOPHILS # (AUTO) 0.3 10^3/uL (0.0-0.6); ABSOLUTE LYMPHOCYTES (AUTO) 0.9 10^3/uL (0.5-4.7); ABSOLUTE MONOCYTES (AUTO) 0.6 10^3/uL (0.1-1.4); ABSOLUTE NEUT (AUTO) 5.5 10^3/uL (1.7-8.2); BASOPHILS % (AUTO) 0.7 % (0-2); EOSINOPHILS % (AUTO) 3.5 % (0-6); HEMATOCRIT 28.2 % (37.9-51.0); HEMOGLOBIN 9.6 g/dL (13.5-17.0); LYMPHOCYTES % (AUTO) 11.8 % (13-45); MEAN CORPUSCULAR HEMOGLOBIN 30.1 pg (27.0-33.4); MEAN CORPUSCULAR HGB CONC 34.1 g/dL (32.0-36.0); MEAN CORPUSCULAR VOLUME 88 fl (80-97); MONOCYTES % (AUTO) 8.2 % (3-13); PLATELET COUNT 236 10^3/uL (150-450); RED BLOOD COUNT 3.21 10^6/uL (4.35-5.55); RED CELL DISTRIBUTION WIDTH 13.5 % (11.5-14.0); SEGMENTED NEUTROPHILS % (AUTO) 75.8 % (42-78); TOTAL CELLS COUNTED % (AUTO) 100 %; WHITE BLOOD COUNT 7.3 10^3/uL (4.0-10.5)
[2018-07-11 05:10] LABS: INTERNATIONAL RATION (INR) 0.92; PROTHROMBIN TIME 12.8 SEC (11.4-15.4)
[2018-07-11 05:11] LABS: PARTIAL THROMBOPLASTIN TIME 33.2 SEC (23.5-35.8)
[2018-07-11 05:31] LABS: ANION GAP 10 (5-19); BLOOD UREA NITROGEN 46 mg/dL (7-20); CALCIUM 8.3 mg/dL (8.4-10.2); CARBON DIOXIDE 21 mmol/L (22-30); CHLORIDE 112 mmol/L (98-107); GLUCOSE 120 mg/dL (75-110); POTASSIUM 5.4 mmol/L (3.6-5.0)
[2018-07-11 07:19] VITALS: BP 130/80
== END 2018-07-11 07:37 | disposition short-term general hospital (02) ==
LOC: ER 02:54
DX: S01.01XA Laceration without foreign body of scalp, initial encounter (principal); S01.311A Laceration without foreign body of right ear, initial encounter; S06.5X9A Traumatic subdural hemorrhage with loss of consciousness of unspecified duration, initial encounter; W08.XXXA Fall from other furniture, initial encounter; Y92.003 Bedroom of unspecified non-institutional (private) residence as the place of occurrence of the external cause; I10 Essential (primary) hypertension
CPT/HCPCS: 99291; 96374; 36415; 85025; 85610; 85730; 80048; 70450; 72125; 12001; J3490; J2270

== ENCOUNTER 2020-03-29 01:55 | Emergency (ER) | payer MEDICARE, OTHER ==
[2020-03-29] MEDS ORDERED: DEXTROSE 10%-WATER 100 ML IV ONE (02:13)
[2020-03-29 03:16] LABS: ABSOLUTE LYMPHOCYTES (AUTO) 0.6 10^3/uL (0.5-4.7); ABSOLUTE MONOCYTES (AUTO) 0.3 10^3/uL (0.1-1.4); ABSOLUTE NEUT (AUTO) 6.2 10^3/uL (1.7-8.2); ALBUMIN 4.2 g/dL (3.5-5.0); ALKALINE PHOSPHATASE 89 U/L (38-126); ANION GAP 11 (5-19); ASPARTATE AMINO TRANSFERASE 23 U/L (17-59); BASOPHILS % (AUTO) 0.3 % (0-2); BILIRUBIN,DIRECT 0.4 mg/dL (0.0-0.4); BILIRUBIN,TOTAL 0.5 mg/dL (0.2-1.3); BLOOD UREA NITROGEN 36 mg/dL (7-20); CALCIUM 9.4 mg/dL (8.4-10.2); CARBON DIOXIDE 19 mmol/L (22-30); CHLORIDE 114 mmol/L (98-107); EOSINOPHILS % (AUTO) 0.6 % (0-6); HEMATOCRIT 37.9 % (37.9-51.0); HEMOGLOBIN 12.5 g/dL (13.5-17.0); LYMPHOCYTES % (AUTO) 7.9 % (13-45); MEAN CORPUSCULAR HEMOGLOBIN 27.7 pg (27.0-33.4); MEAN CORPUSCULAR VOLUME 84 fl (80-97); MONOCYTES % (AUTO) 4.6 % (3-13); PLATELET COUNT 179 10^3/uL (150-450); POTASSIUM 4.9 mmol/L (3.6-5.0); RED BLOOD COUNT 4.51 10^6/uL (4.35-5.55); RED CELL DISTRIBUTION WIDTH 16.3 % (11.5-14.0); SEGMENTED NEUTROPHILS % (AUTO) 86.6 % (42-78); TOTAL CELLS COUNTED % (AUTO) 100 %; TOTAL PROTEIN 7.3 g/dL (6.3-8.2); WHITE BLOOD COUNT 7.2 10^3/uL (4.0-10.5)
[2020-03-29 03:21] LABS: GLUCOSE 69 mg/dL (75-110)
--- NOTE | 2020-03-29 05:41 | ER Document Report ---
ED General - General Chief Complaint: Low Blood Sugar Stated Complaint: BLOOD SUGAR PROBLEMS Time Seen by Provider: 03/29/20 02:05 TRAVEL OUTSIDE OF THE [place] IN LAST 30 DAYS: No - HPI Notes: Patient is a 60-year-old male presents to the emergency department for evaluation after a hypoglycemic episode. Evidently he was nauseated yesterday. He had one episode of emesis. As a result, he took his diabetic medication, but did not eat any food. He admits he did not drink anything. He was found to be hypoglycemic with a blood glucose in the 40s. He was given 150 cc of D10, rebounded, that his blood glucose dropped again. Patient denies any pain. He denies any current nausea. He states he is just sleepy because he has not slept all night. Currently he is on glimepiride, 2 mg, for diabetic control. - Related Data Allergies/Adverse Reactions: No Known Allergies Allergy (Unverified 06/25/18 06:51) Home Medications: List reviewed at bedside Past Medical History - General Information source: Patient - Social History Smoking Status: Unknown if Ever Smoked Frequency of alcohol use: None Family History: Reviewed & Not Pertinent Patient has homicidal ideation: No - Past Medical History Cardiac Medical History: Reports: Hx Hypertension - 2016 Denies: Hx Congestive Heart Failure, Hx Heart Attack Pulmonary Medical History: Denies: Hx Asthma, Hx Bronchitis, Hx COPD, Hx Pneumonia, Hx Tuberculosis Neurological Medical History: Reports: Hx Cerebrovascular Accident. Denies: Hx Seizures, Hx Parkinson's Disease Endocrine Medical History: Reports: Hx Diabetes Mellitus Type 2 Renal/ Medical History: Denies: Hx Benign Prostatic Hyperplasia, Hx End Stage Renal Disease, Hx Kidney Stones, Hx Peritoneal Dialysis GI Medical History: Denies: Hx Cirrhosis, Hx Gastroesophageal Reflux Disease, Hx Ulcer Musculoskeletal Medical History: Denies Hx Arthritis, Denies Hx Multiple Sclerosis Psychiatric Medical History: Denies: Hx Bipolar Disorder, Hx Depression, Hx Schizophrenia Past Surgical History: Reports: Other - Left eye surgery - Immunizations Hx Diphtheria, Pertussis, Tetanus Vaccination: Yes Review of Systems - Review of Systems Constitutional: Diaphoresis EENT: No symptoms reported Cardiovascular: No symptoms reported Respiratory: No symptoms reported Gastrointestinal: No symptoms reported Genitourinary: No symptoms reported Musculoskeletal: No symptoms reported Skin: No symptoms reported Neurological/Psychological: See HPI Physical Exam - Vital signs Vitals: Pulse Ox 97 03/29/20 01:59 - Notes Notes: Vital signs reviewed, please refer to chart. Head is normocephalic, atraumatic. Pupils equal round, reactive to light. Neck is supple without meningismus. Heart is regular rate and rhythm. Lungs are clear to auscultation bilaterally. Abdomen is soft, nontender, normoactive bowel sounds throughout. Extremities without cyanosis, clubbing. Posterior calves are nontender. Peripheral pulses are equal. Skin is warm and dry. Patient is awake, alert, neurological exam is nonfocal. Cooperative with examiner. Cooperative with examiner. No gross facial asymmetry. Mild tremor in the right upper extremity, residual from his prior CVA. Course - Re-evaluation Re-evalutation: 03/29/20 05:50 Patient presents to the emergency department for evaluation. He admits he is not really eating or drinking anything. He had laboratory investigations which showed repeated hypoglycemia. He was given another 100 cc of D10. He was told he needed to eat something. He ate a small amount of Goldfish crackers. He would not eat anything else. I was able to finally get him to drink some juice, eat some peanut butter crackers. He took his glimepiride around noon. He is eating. He does not live alone. I will give him some fluids as well, as he seems mildly dehydrated. I assume his blood glucose will stay up given his eating. He is told not to take his glimepiride today. He is advised that if he takes his glimepiride, he has to eat. He voiced understanding to this. I also advised him to discuss whether or not he needs the glimepiride, or whether or not it is the most appropriate medication for him, with his primary care provider. He voiced understanding. He is to return to the emergency department with worsening or new concerning symptoms of any sort. - Vital Signs Vital signs: Temp Pulse Resp BP Pulse Ox 97.8 F 18 146/97 H 100 03/29/20 02:01 03/29/20 05:01 03/29/20 05:00 03/29/20 05:01 - Laboratory Result Diagrams: 03/29/20 02:08 03/29/20 02:08 Laboratory results interpreted by me: 03/29/20 03/29/20 03/29/20 02:00 02:08 02:08 Hgb 12.5 L RDW 16.3 H Lymph % (Auto) 7.9 L Seg Neutrophils % 86.6 H Chloride 114 H Carbon Dioxide 19 L BUN 36 H Creatinine 2.82 H Est GFR ( Amer) 28 L Est GFR (MDRD) Non-Af 23 L Glucose 69 L POC Glucose 60 L 03/29/20 06:01 Hgb RDW Lymph % (Auto) Seg Neutrophils % Chloride Carbon Dioxide BUN Creatinine Est GFR ( Amer) Est GFR (MDRD) Non-Af Glucose POC Glucose 114 H Discharge - Discharge Clinical Impression: Hypoglycemia Condition: Stable Disposition: HOME, SELF-CARE Instructions: Hypoglycemia ([facility]) Additional Instructions: If you take your glimepiride, it is very important that you eat. Please do not take your glimepiride today. Rest, stay hydrated, eat small amounts of food frequently. Follow-up with your primary care provider. You should discuss whether or not glimepiride is a good choice for you given your diminished appetite. If you develop worsening or new concerning symptoms of any sort, please return immediately to the emergency department for reevaluation.
[2020-03-29 08:50] VITALS: BP 143/89
== END 2020-03-29 08:50 | disposition home or self-care (01) ==
LOC: ER 01:55
DX: E11.649 Type 2 diabetes mellitus with hypoglycemia without coma (principal); R11.2 Nausea with vomiting, unspecified; R61 Generalized hyperhidrosis; Z79.84 Long term (current) use of oral hypoglycemic drugs; I10 Essential (primary) hypertension
CPT/HCPCS: 36415; 80053; 82962; 85025; 99284

== ENCOUNTER 2020-04-26 10:15 | Inpatient (IN) | payer MEDICARE ==
[2020-04-26] MEDS ORDERED: METOPROLOL TARTRATE PF/INJ 5 MG/5 ML SDV IV ONE (10:57)
[2020-04-26 11:09] LABS: INTERNATIONAL RATION (INR) 1.02; PROTHROMBIN TIME 13.6 SEC (11.4-15.4)
[2020-04-26 11:12] LABS: ABSOLUTE LYMPHOCYTES (AUTO) 0.5 10^3/uL (0.5-4.7); ABSOLUTE MONOCYTES (AUTO) 0.3 10^3/uL (0.1-1.4); ABSOLUTE NEUT (AUTO) 7.3 10^3/uL (1.7-8.2); BASOPHILS % (AUTO) 0.2 % (0-2); HEMATOCRIT 32.8 % (37.9-51.0); LYMPHOCYTES % (AUTO) 6.5 % (13-45); MEAN CORPUSCULAR HGB CONC 33.4 g/dL (32.0-36.0); MEAN CORPUSCULAR VOLUME 84 fl (80-97); MONOCYTES % (AUTO) 4.2 % (3-13); PLATELET COUNT 176 10^3/uL (150-450); RED BLOOD COUNT 3.91 10^6/uL (4.35-5.55); RED CELL DISTRIBUTION WIDTH 15.4 % (11.5-14.0); SEGMENTED NEUTROPHILS % (AUTO) 89.1 % (42-78); TOTAL CELLS COUNTED % (AUTO) 100 %; WHITE BLOOD COUNT 8.2 10^3/uL (4.0-10.5)
[2020-04-26 11:25] LABS: ALBUMIN 3.9 g/dL (3.5-5.0); ALKALINE PHOSPHATASE 98 U/L (38-126); ANION GAP 10 (5-19); ASPARTATE AMINO TRANSFERASE 12 U/L (17-59); BILIRUBIN,DIRECT 0.3 mg/dL (0.0-0.4); BILIRUBIN,TOTAL 0.4 mg/dL (0.2-1.3); BLOOD UREA NITROGEN 41 mg/dL (7-20); CARBON DIOXIDE 25 mmol/L (22-30); CHLORIDE 109 mmol/L (98-107); CREATINE KINASE 39 U/L (55-170); GLUCOSE 172 mg/dL (75-110); POTASSIUM 4.5 mmol/L (3.6-5.0); TOTAL PROTEIN 6.8 g/dL (6.3-8.2)
--- NOTE | 2020-04-26 11:28 | ER Document Report ---
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 Patient states that the emesis is dark with clots. He reports associated lower abdominal pain and nausea. Patient received 1 L LR via EMS that was still running when I entered the room. Patient is on multiple blood pressure medications, but did not take any this morning. He mentions that he recently moved here from [place], [place] and will be seeing Dr. Peters for his primary care. TRAVEL OUTSIDE OF THE [place] 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, 2016 Endocrine Medical History: Reports: Hx Diabetes Mellitus Type 2 Past Surgical History: Reports: Other - Left eye surgery - Immunizations Hx Diphtheria, Pertussis, Tetanus Vaccination: Yes Review of Systems - Review of Systems Constitutional: See HPI EENT: No symptoms reported Cardiovascular: No symptoms reported Respiratory: No symptoms reported Gastrointestinal: See HPI Genitourinary: No symptoms reported Male Genitourinary: No symptoms reported Musculoskeletal: No symptoms reported Skin: No symptoms reported Hematologic/Lymphatic: No symptoms reported Neurological/Psychological: No symptoms reported -: Yes All other systems reviewed and negative Physical Exam - Vital signs Vitals: Temp Resp Pulse Ox 98.5 F 19 100 04/26/20 10:33 04/26/20 10:33 04/26/20 10:33 - General General appearance: Alert In distress: None - HEENT Head: Normocephalic, Atraumatic Eyes: Normal Pupils: PERRL - Respiratory Respiratory status: No respiratory distress Chest status: Nontender Breath sounds: Normal Chest palpation: Normal - Cardiovascular Rhythm: Regular - Rate in the upper 90s Heart sounds: Normal auscultation Murmur: No Friction rub: No Gallop: None auscultated - Abdominal Inspection: Normal Distension: No distension Bowel sounds: Normal Tenderness: Tender - Vague tenderness to palpation of the mid lower abdomen Organomegaly: No organomegaly - Back Back: Normal, Nontender - Extremities General upper extremity: Normal inspection General lower extremity: Normal inspection. No: Edema - Neurological Neuro grossly intact: Yes Orientation: AAOx4 [place] Coma Scale Eye Opening: Spontaneous [place] Coma Scale Verbal: Oriented [place] Coma Scale Motor: Obeys Commands Augie Coma Scale Total: 15 Additional motor exam normals: Weakness - right-sided weakness from prior stroke, but he is able to hold and use his phone in the right hand - Psychological Associated symptoms: Normal affect, Normal mood - Skin Skin Temperature: Warm Skin Moisture: Dry Skin Color: Normal Course - Re-evaluation Re-evalutation: 04/26/20 14:12 Patient's last meal was yesterday morning and it was some soup. - Vital Signs Vital signs: Temp Pulse Resp BP Pulse Ox 98.5 F 17 165/102 H 95 04/26/20 10:33 04/26/20 13:31 04/26/20 13:31 04/26/20 13:31 - Laboratory Result Diagrams: 04/26/20 10:43 04/26/20 10:43 Laboratory results interpreted by me: 04/26/20 04/26/20 04/26/20 10:43 10:43 12:30 RBC 3.91 L Hgb 11.0 L Hct 32.8 L RDW 15.4 H Lymph % (Auto) 6.5 L Seg Neutrophils % 89.1 H Chloride 109 H BUN 41 H Creatinine 2.63 H Est GFR ( Amer) 30 L Est GFR (MDRD) Non-Af 25 L Glucose 172 H AST 12 L Creatine Kinase 39 L Urine Protein 100 H Urine Blood SMALL H Ur Leukocyte Esterase MODERATE H - EKG Interpretation by Me EKG shows normal: Sinus rhythm, [place], Intervals, QRS Complexes, ST-T Waves Rate: Normal - 91 Rhythm: NSR [place]/QRS: RBBB P Waves: LAE When compared to previous EKG there are: No significant change - Consults Dr. Ford Time consulted: 13:50 Consulted provider: will see as inpatient Dr. Vanessa Time consulted: 14:15 Consulted provider: will come to ER Discharge - Discharge Clinical Impression: UGIB (upper gastrointestinal bleed), CKD (chronic kidney disease) stage 4, GFR 15-29 ml/min HTN (hypertension) Qualifiers: Hypertension type: essential hypertension Qualified Code(s): I10 - Essential (primary) hypertension Disposition: ADMITTED INPATIENT Admitting Provider: [facility] (Hospitalist) Unit Admitted: IMCU Referrals: TRACY PETERS MD [COMMUNITY BASED STAFF] - Follow up as needed I personally performed the services described in the documentation, reviewed and edited the documentation which was dictated to the scribe in my presence, and it accurately records my words and actions.
[2020-04-26] MEDS ORDERED: PANTOPRAZOLE SODIUM 40 MG VIAL IV ONE (11:34)
[2020-04-26 12:57] LABS: APPEARANCE,URINE SLIGHTLY-CLOUDY; BILIRUBIN,URINE NEGATIVE (NEGATIVE); COLOR,URINE YELLOW; GLUCOSE, URINE NEGATIVE (NEGATIVE); KETONES,URINE NEGATIVE (NEGATIVE); LEUKOCYTE ESTERASE,URINE MODERATE (NEGATIVE); NITRITE,URINE NEGATIVE (NEGATIVE); PROTEIN,URINE 100 mg/dL (NEGATIVE); URINE SPECIFIC GRAVITY 1.011; UROBILINOGEN,URINE NEGATIVE mg/dL (<2.0)
[2020-04-26] MEDS ORDERED: NORMAL SALINE 1000 ML 1,000 ML IV ONE (13:57)
[2020-04-26] MEDS ORDERED: DEXTROSE 50%-WATER 25 GM/50 ML DISP.SYRIN IV PRN ×4 (14:53→14:57)
[2020-04-26] MEDS ORDERED: GLUCAGON,HUMAN RECOMB 1 MG INJ SUBCUT PRN (14:53)
[2020-04-26] MEDS ORDERED: NORMAL SALINE 1000 ML 1,000 ML IV PRN (14:53)
[2020-04-26] MEDS ORDERED: DEXTROSE 40% GEL 15 GM TUBE PO PRN ×4 (14:53→14:57)
[2020-04-26] MEDS ORDERED: GLUCAGON,HUMAN RECOMB 1 MG INJ IM PRN (14:57)
--- NOTE | 2020-04-26 15:03 | RADIOLOGY REPORT (SQ) ---
EXAM DESCRIPTION: CHEST SINGLE VIEW IMAGES COMPLETED DATE/TIME: 04/26/2020 2:42 pm REASON FOR STUDY: endoscopy COMPARISON: None. EXAM PARAMETERS: NUMBER OF VIEWS: One view. TECHNIQUE: Single frontal radiographic view of the chest acquired. RADIATION DOSE: NA LIMITATIONS: None. FINDINGS: LUNGS AND PLEURA: No opacities, masses or pneumothorax. No pleural effusion. MEDIASTINUM AND HILAR STRUCTURES: No masses. Contour normal. HEART AND VASCULAR STRUCTURES: Heart normal in size. Normal vasculature. BONES: No acute findings. HARDWARE: None in the chest. OTHER: No other significant finding. IMPRESSION: NO ACUTE RADIOGRAPHIC FINDING IN THE CHEST. TECHNICAL DOCUMENTATION: JOB ID: [id number] 2010 [employer]- All Rights Reserved Reading location - IP/workstation name: [email or web address]
--- NOTE | 2020-04-26 15:17 | PDOC H&P ---
History of Present Illness Admission Date/PCP: 04/26/20 14:33 Patient complains of: Passing black-colored stools from this morning History of Present Illness: CHRISSY NANCE is a 60 year old male with history of hypertension, diabetes mellitus, recent history of upper GI bleed admitted to [facility] at that time stopped taking aspirin after that came to the emergency room after passing out. He passed out for a few minutes as per the patient. When the EMS arrived he was covered in black-colored stool. Also has a vomitings and mild abdominal pain. In the emergency room hemoglobin is 11. Surgical consult was requested. Patient will be n.p.o. Patient was given Protonix bolus. To type and crossmatch and for 2 units of blood transfusion if needed. COVID-19 is pending at this time. pt Wants to be a full code. Past Medical History Cardiac Medical History: Reports: Hypertension - 2016 Denies: Congestive Heart Failure, Myocardial Infarction Pulmonary Medical History: Denies: Asthma, Bronchitis, Chronic Obstructive Pulmonary Disease (COPD), Pneumonia, Tuberculosis Neurological Medical History: Denies: Seizures Endocrine Medical History: Reports: Diabetes Mellitus Type 2 Renal/ Medical History: Denies: End Stage Renal Disease GI Medical History: Denies: Cirrhosis, Gastroesophageal Reflux Disease Musculoskeltal Medical History: Denies: Arthritis Psychiatric Medical History: Denies: Bipolar Disorder, Depression Hematology: Denies: Anemia, Bleeding Tendencies Past Surgical History Past Surgical History: Reports: Other - Left eye surgery Social History Smoking Status: Unknown if Ever Smoked Electronic Cigarette use?: No Hx Recreational Drug Use: No Hx Prescription Drug Abuse: No - Advance Directive Resuscitation Status: Full Code Family History Family History: Reviewed & Not Pertinent Parental Family History Reviewed: Yes - Diabetes mellitus Children Family History Reviewed: Yes Sibling(s) Family History Reviewed.: Yes Medication/Allergy Home Medications: Amlodipine Besylate [Norvasc 10 mg Tablet] 10 mg PO DAILY 06/25/18 Aspirin [Ecotrin 81 mg EC Tablet] 81 mg PO DAILY tabec 06/30/18 Gabapentin [Neurontin 100 mg Capsule] 100 mg PO BID capsule 06/30/18 Insulin Lispro [Humalog Insulin (Lispro) 100 unit/mL] 0 - 12 unit SUBCUT ACHSP PRN unit 06/30/18 Lisinopril [Prinivil 10 mg Tablet] 20 mg PO DAILY tablet 06/30/18 Metoprolol Tartrate [Lopressor 25 mg Tablet] 25 mg PO Q12 tablet 06/30/18 Allergies/Adverse Reactions: No Known Allergies Allergy (Unverified 06/25/18 06:51) Review of Systems Constitutional: ABSENT: fever(s), headache(s), night sweats, weakness Eyes: ABSENT: visual disturbances Ears: ABSENT: hearing changes Nose, Mouth, and Throat: ABSENT: sore throat Cardiovascular: ABSENT: dyspnea on exertion, orthropnea, palpitations Respiratory: ABSENT: dyspnea, hemoptysis Gastrointestinal: PRESENT: abdominal pain, melena, nausea, vomiting. ABSENT: diarrhea Integumentary: PRESENT: as per HPI Neurological: PRESENT: syncope Psychiatric: ABSENT: anxiety, depression, homidical ideation, suicidal ideation Physical Exam Vital Signs: Temp Pulse Resp BP Pulse Ox 98.5 F 17 158/113 H 98 04/26/20 10:33 04/26/20 14:31 04/26/20 14:31 04/26/20 14:31 Intake & Output 04/25/20 04/26/20 04/27/20 06:59 06:59 06:59 Weight 57.9 kg General appearance: PRESENT: no acute distress, cooperative, thin Head exam: PRESENT: atraumatic Eye exam: PRESENT: PERRLA Ear exam: PRESENT: normal external ear exam Mouth exam: PRESENT: neck supple Teeth exam: PRESENT: poor dentation Neck exam: ABSENT: carotid bruit, JVD, lymphadenopathy, thyromegaly Respiratory exam: PRESENT: decreased breath sounds Cardiovascular exam: PRESENT: RRR. ABSENT: diastolic murmur, rubs, systolic murmur GI/Abdominal exam: PRESENT: normal bowel sounds, soft. ABSENT: distended, guar ding, mass, organolmegaly, rebound, tenderness Rectal exam: PRESENT: deferred Extremities exam: PRESENT: full ROM. ABSENT: calf tenderness, clubbing, pedal edema Neurological exam: PRESENT: alert, awake, oriented to person, oriented to place, oriented to time, oriented to situation, CN II-XII grossly intact. ABSENT: motor sensory deficit Psychiatric exam: PRESENT: appropriate affect, normal mood. ABSENT: homicidal ideation, suicidal ideation Results Laboratory Results: 04/26/20 10:43 04/26/20 10:43 04/26/20 04/26/20 04/26/20 10:43 10:43 10:43 WBC 8.2 RBC 3.91 L Hgb 11.0 L Hct 32.8 L MCV 84 MCH 28.0 MCHC 33.4 RDW 15.4 H Plt Count 176 Seg Neutrophils % 89.1 H Sodium 143.6 Potassium 4.5 Chloride 109 H Carbon Dioxide 25 Anion Gap 10 BUN 41 H Creatinine 2.63 H Est GFR ( Amer) 30 L Glucose 172 H Calcium 9.0 Total Bilirubin 0.4 AST 12 L Alkaline Phosphatase 98 Total Protein 6.8 Albumin 3.9 Urine Color Urine Appearance Urine pH Ur Specific [place] Urine Protein Urine Glucose (UA) Urine Ketones Urine Blood Urine Nitrite Ur Leukocyte Esterase Urine WBC (Auto) Urine RBC (Auto) Blood Type O POSITIVE Antibody Screen NEGATIVE 04/26/20 12:30 WBC RBC Hgb Hct MCV MCH MCHC RDW Plt Count Seg Neutrophils % Sodium Potassium Chloride Carbon Dioxide Anion Gap BUN Creatinine Est GFR ( Amer) Glucose Calcium Total Bilirubin AST Alkaline Phosphatase Total Protein Albumin Urine Color YELLOW Urine Appearance SLIGHTLY-CLOUDY Urine pH 6.0 Ur Specific [place] 1.011 Urine Protein 100 H Urine Glucose (UA) NEGATIVE Urine Ketones NEGATIVE Urine Blood SMALL H Urine Nitrite NEGATIVE Ur Leukocyte Esterase MODERATE H Urine WBC (Auto) 31 Urine RBC (Auto) 1 Blood Type Antibody Screen 04/26/20 04/26/20 10:43 10:43 Creatine Kinase 39 L Troponin I < 0.012 Impressions: Chest X-Ray 04/26/20 14:06 IMPRESSION: NO ACUTE RADIOGRAPHIC FINDING IN THE CHEST. Assessment and Plan - Diagnosis (1) UGIB (upper gastrointestinal bleed) Is this a current diagnosis for this admission?: Yes Plan: 04/26/2020-patient is going to be admitted to [facility] as inpatient. Diagnosis upper GI bleed. Type and screen to be done to hold 2 units of PRBC if needed. GI pro phylaxis initiated. On SCDs. To hold aspirin. Patient denies using ibuprofen at home. Follow-up CBC was requested for this evening. Patient will be n.p.o. for EGD and colonoscopy. Consulted Dr. Ford. (2) HTN (hypertension) Qualifiers: Hypertension type: essential hypertension Qualified Code(s): I10 - Essential (primary) hypertension Is this a current diagnosis for this admission?: No Plan: 04/26/2020-patient has history of chronic essential hypertension. Blood pressure is 180/103 in the ER. Started on IV hydralazine 10 mg every 3 hours as needed for systolic blood pressure more than 170. (3) CKD (chronic kidney disease) stage 4, GFR 15-29 ml/min Is this a current diagnosis for this admission?: No Plan: 04/26/2020-patient has history of chronic kidney disease. He has a stage III kidney disease. CKD stable. (4) Diabetes Qualifiers: Diabetes mellitus type: type 2 Is this a current diagnosis for this admission?: No Plan: 04/26/2020-patient has history of type [address] him on insulin sliding scale every 6 hours. Patient is n.p.o. at this time. - Time Anticipated Discharge Disposition: Home, Self Care Anticipated Discharge Timeframe: within 48 hours
[2020-04-26 15:43] LABS: INTERNATIONAL RATION (INR) 1.07; PROTHROMBIN TIME 14.1 SEC (11.4-15.4)
--- NOTE | 2020-04-26 16:17 | RADIOLOGY REPORT (SQ) ---
EXAM DESCRIPTION: CT ABD/PELVIS NO ORAL OR IV IMAGES COMPLETED DATE/TIME: 04/26/2020 4:04 pm REASON FOR STUDY: GI BLEED COMPARISON: None. TECHNIQUE: CT scan of the abdomen and pelvis performed without intravenous or oral contrast. Images reviewed with lung, soft tissue, and bone windows. Reconstructed coronal and sagittal MPR images revi ewed. All images stored on PACS. All CT scanners at this facility use dose modulation, iterative reconstruction, and/or weight based d osing when appropriate to reduce radiation dose to as low as reasonably achievable (ALARA). [facility]: Dose Right [facility]: CareDose [facility]: Dose Right [facility]: Teradose 4D [facility]: Smart [facility] RADIATION DOSE: CT Rad equipment meets quality standard of care and radiation dose reduction techniq ues were employed. CTDIvol: 6.8 mGy. DLP: 365 mGy-cm.mGy. LIMITATIONS: None. FINDINGS: LOWER CHEST: Minimal right pleural effusion. Small hiatal hernia. NON-CONTRASTED LIVER, SPLEEN, ADRENALS: Evaluation limited by lack of IV contrast. No identified sign ificant masses. PANCREAS: No masses. No peripancreatic inflammatory changes. GALLBLADDER: No identified stones by CT criteria. No inflammatory changes to suggest cholecystitis. RIGHT KIDNEY AND URETER: No suspicious masses. Mild cortical atrophy. Vascular calcifications. N o hydronephrosis or hydroureter. LEFT KIDNEY AND URETER: No suspicious masses. Cortical atrophy. Vascular calcifications. No hydr onephrosis or hydroureter. AORTA AND RETROPERITONEUM: No aneurysm. No retroperitoneal masses or adenopathy. BOWEL AND PERITONEAL CAVITY: Sigmoid diverticulosis with no associated inflammation. No evidence act valeria GI bleeding. APPENDIX: Normal. PELVIS, BLADDER, AND ABDOMINAL WALL:No abnormal masses. No free fluid. Bladder normal. BONES: Grade 1 anterolisthesis of L4 on L5. Marked anterior wedge compression at T9 with a gibbous d eformity. OTHER: No other significant finding. IMPRESSION: Small hiatal hernia. Minimal right pleural effusion. Small renal vascular calcificatio ns with cortical atrophy in each kidney. Diverticulosis coli. Osseous findings as described. No ev idence of active GI bleeding. COMMENT: Quality ID # [id number]: Final reports with documentation of one or more dose reduction techniques (e.g., Automated exposure control, adjustment of the mA and/or kV according to patient size, use of iterative reconstruction technique) TECHNICAL DOCUMENTATION: JOB ID: [id number] 2010 [employer]- All Rights Reserved Reading location - IP/workstation name: [email or web address]
[2020-04-26] MEDS ORDERED: NORMAL SALINE 250 ML IV PRN ×2 (18:08)
[2020-04-26 19:38] LABS: ABSOLUTE LYMPHOCYTES (AUTO) 1.4 10^3/uL (0.5-4.7); ABSOLUTE MONOCYTES (AUTO) 0.7 10^3/uL (0.1-1.4); BASOPHILS % (AUTO) 0.4 % (0-2); EOSINOPHILS % (AUTO) 0.5 % (0-6); HEMATOCRIT 31.6 % (37.9-51.0); HEMOGLOBIN 10.6 g/dL (13.5-17.0); LYMPHOCYTES % (AUTO) 17.5 % (13-45); MEAN CORPUSCULAR HEMOGLOBIN 28.4 pg (27.0-33.4); MEAN CORPUSCULAR HGB CONC 33.6 g/dL (32.0-36.0); MEAN CORPUSCULAR VOLUME 84 fl (80-97); PLATELET COUNT 171 10^3/uL (150-450); RED BLOOD COUNT 3.74 10^6/uL (4.35-5.55); RED CELL DISTRIBUTION WIDTH 15.8 % (11.5-14.0); SEGMENTED NEUTROPHILS % (AUTO) 72.6 % (42-78); TOTAL CELLS COUNTED % (AUTO) 100 %; WHITE BLOOD COUNT 8.2 10^3/uL (4.0-10.5)
[2020-04-26] MEDS ORDERED: MEPERIDINE HCL/PF INJ 25 MG/1 ML DISP.SYRIN IV PRN (20:19)
[2020-04-26] MEDS ORDERED: DIPHENHYDRAMINE HCL 50 MG/ML VIAL IV PRN (20:19)
[2020-04-26] MEDS ORDERED: PROMETHAZINE HCL INJ 25 MG/1 ML VIAL IV PRN ×2 (20:19)
[2020-04-26] MEDS ORDERED: FENTANYL CITRATE INJ/PF 100 MCG/2 ML AMPUL IV PRN ×3 (20:19)
--- NOTE | 2020-04-26 20:29 | PDOC CONSULTATION ---
Consultation Consult Date: 04/26/20 Provider Consulted: SHANDRA KAY Consult reason:: Gastrointestinal bleed History of Present Illness Admission Date/PCP: 04/26/20 14:33 Patient complains of: Bloody emesis History of Present Illness: CHRISSY NANCE is a 60 year old male who last night after going to sleep awoke and noticed that he had a bowel movement in his sleep consisting of black tarry stools. He felt too weak to make it to the bathroom. But he did not pass out. He had another episode of melena and he subsequently was brought to the hospital. He has had also associated abdominal pain that is mild in severity. Patient has had a multiple episode of bloody emesis as well. He denies any alcohol abuse. Denies any NSAID abuse. No prior history of gastrointestinal bleeding. He does have a remote history of esophageal stricture requiring dilation but he denies any recent episodes of dysphasia. Patient has history of about 200 pound weight loss about 10 years ago and he has kept the weight off since then. He does have a family history of some sort of gastrointestinal malignancy in his mom at age 68. 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 Past Medical History Cardiac Medical History: Reports: Hypertension - 2016 Denies: Congestive Heart Failure, Myocardial Infarction Pulmonary Medical History: Denies: Asthma, Bronchitis, Chronic Obstructive Pulmonary Disease (COPD), Pneumonia, Tuberculosis Neurological Medical History: Denies: Seizures Endocrine Medical History: Reports: Diabetes Mellitus Type 2 Renal/ Medical History: Denies: End Stage Renal Disease GI Medical History: Denies: Cirrhosis, Gastroesophageal Reflux Disease Musculoskeltal Medical History: Denies: Arthritis Psychiatric Medical History: Denies: Bipolar Disorder, Depression Hematology: Denies: Anemia, Bleeding Tendencies Past Surgical History Past Surgical History: Reports: Other - Left eye surgery Social History Smoking Status: Unknown if Ever Smoked Electronic Cigarette use?: No Hx Recreational Drug Use: No Hx Prescription Drug Abuse: No - Advance Directive Resuscitation Status: Full Code Family History Family History: Reviewed & Not Pertinent Parental Family History Reviewed: Yes - Mother who of a gastrointestinal malignancy at age 68. Children Family History Reviewed: Yes Sibling(s) Family History Reviewed.: Yes Medication/Allergy Home Medications: Amlodipine Besylate [Norvasc 10 mg Tablet] 10 mg PO DAILY 06/25/18 Aspirin [Ecotrin 81 mg EC Tablet] 81 mg PO DAILY tabec 06/30/18 Gabapentin [Neurontin 100 mg Capsule] 100 mg PO BID capsule 06/30/18 Insulin Lispro [Humalog Insulin (Lispro) 100 unit/mL] 0 - 12 unit SUBCUT ACHSP PRN unit 06/30/18 Lisinopril [Prinivil 10 mg Tablet] 20 mg PO DAILY tablet 06/30/18 Metoprolol Tartrate [Lopressor 25 mg Tablet] 25 mg PO Q12 tablet 06/30/18 Allergies/Adverse Reactions: No Known Allergies Allergy (Unverified 06/25/18 06:51) Review of Systems All systems: reviewed and no additional remarkable complaints except as stated Gastrointestinal: PRESENT: as per HPI Physical Exam Vital Signs: Temp Pulse Resp BP Pulse Ox 98.5 F 17 158/113 H 98 04/26/20 10:33 04/26/20 14:31 04/26/20 14:31 04/26/20 14:31 Intake & Output 04/25/20 04/26/20 04/27/20 06:59 06:59 06:59 Output Total 450 Balance -450 Weight 57.9 kg General appearance: PRESENT: no acute distress, cooperative Eye exam: PRESENT: conjunctiva pink Respiratory exam: PRESENT: clear to auscultation jerardo Cardiovascular exam: PRESENT: RRR GI/Abdominal exam: PRESENT: other - Soft, nondistended, mild lower abdominal tenderness without peritoneal signs. Neurological exam: PRESENT: alert, awake Psychiatric exam: PRESENT: appropriate affect Results Laboratory Results: 04/26/20 10:43 04/26/20 10:43 04/26/20 04/26/20 04/26/20 10:43 10:43 10:43 WBC 8.2 RBC 3.91 L Hgb 11.0 L Hct 32.8 L MCV 84 MCH 28.0 MCHC 33.4 RDW 15.4 H Plt Count 176 Seg Neutrophils % 89.1 H Sodium 143.6 Potassium 4.5 Chloride 109 H Carbon Dioxide 25 Anion Gap 10 BUN 41 H Creatinine 2.63 H Est GFR ( Amer) 30 L Glucose 172 H Calcium 9.0 Total Bilirubin 0.4 AST 12 L Alkaline Phosphatase 98 Total Protein 6.8 Albumin 3.9 Urine Color Urine Appearance Urine pH Ur Specific [place] Urine Protein Urine Glucose (UA) Urine Ketones Urine Blood Urine Nitrite Ur Leukocyte Esterase Urine WBC (Auto) Urine RBC (Auto) Blood Type O POSITIVE Antibody Screen NEGATIVE 04/26/20 12:30 WBC RBC Hgb Hct MCV MCH MCHC RDW Plt Count Seg Neutrophils % Sodium Potassium Chloride Carbon Dioxide Anion Gap BUN Creatinine Est GFR ( Amer) Glucose Calcium Total Bilirubin AST Alkaline Phosphatase Total Protein Albumin Urine Color YELLOW Urine Appearance SLIGHTLY-CLOUDY Urine pH 6.0 Ur Specific [place] 1.011 Urine Protein 100 H Urine Glucose (UA) NEGATIVE Urine Ketones NEGATIVE Urine Blood SMALL H Urine Nitrite NEGATIVE Ur Leukocyte Esterase MODERATE H Urine WBC (Auto) 31 Urine RBC (Auto) 1 Blood Type Antibody Screen 04/26/20 04/26/20 10:43 10:43 Creatine Kinase 39 L Troponin I < 0.012 Impressions: Abdomen/Pelvis CT 04/26/20 00:00 IMPRESSION: Small hiatal hernia. Minimal right pleural effusion. Small renal vascular calcifications with cortical atrophy in each kidney. Diverticulosis coli. Osseous findings as described. No evidence of active GI bleeding. Chest X-Ray 04/26/20 14:06 IMPRESSION: NO ACUTE RADIOGRAPHIC FINDING IN THE CHEST. Assessment & Plan - Diagnosis (1) Gastrointestinal bleeding, upper Is this a current diagnosis for this admission?: Yes Plan: We will plan upper endoscopy. I have explained to the patient the risk and benefits of the procedure including risk of intestinal injury, bleeding, aspiration. Patient understands and agrees to proceed.
--- NOTE | 2020-04-26 20:34 | Operative Report ---
Operative Report DATE OF SURGERY: 04/26/20 PREOPERATIVE DIAGNOSIS: Upper gastrointestinal bleed POSTOPERATIVE DIAGNOSIS: Esophagitis OPERATION: Esophagogastroduodenoscopy with esophageal biopsies. SURGEON: SHANDRA KAY ANESTHESIA: LMAC TISSUE REMOVED OR ALTERED: Esophageal biopsies COMPLICATIONS: None ESTIMATED BLOOD LOSS: Minimal INTRAOPERATIVE FINDINGS: Normal-appearing stomach other than small hiatal hernia. Normal-appearing duodenum. No blood seen in the duodenum nor the stomach. Distal to mid esophagus with exudative covering but no bleeding and no visible ulcerations. PROCEDURE: Informed consent was obtained. Patient was brought to the operating room. Procedure was done under LMAC. After IV sedation, endoscope was passed via the patient's mouth into the second portion of the duodenum. The duodenum appeared to be normal. There was no blood and no ulcerations no lesions no abnormalities in the duodenum. The stomach appeared very clean with no blood no fluid no ulcerations no lesions. Retroflexed view demonstrated a small hiatal hernia but otherwise the stomach appeared to be normal. The scope was withdrawn and in the distal to mid esophagus there appeared to be an exudative covering but no sly ulcerations and certainly no points of bleeding was seen. The esophagus was biopsied. Air was desufflated and the scope was withdrawn. Patient tolerated procedure well with no apparent complications. Patient with esophagitis and perhaps that was the source of some blood in his emesis that the patient noted. However upper endoscopy does not demonstrate source of his melena. Will start him on a bowel prep with plans for a colonoscopy.
[2020-04-26] MEDS ORDERED: PROPOFOL INJ 200 MG/20 ML VIAL IV ONE (20:36)
[2020-04-26] MEDS: INSULIN REG, HUMAN 100 UNIT/ML 3 ML VIAL (PYX) SUBCUT SCH (20:52)
[2020-04-26] MEDS: PANTOPRAZOLE SODIUM 40 MG VIAL IV SCH (21:15)
[2020-04-26] MEDS ORDERED: PEG 3350/NA SULF,BICARB,CL/KCL 4000 ML PO ONE (22:00)
--- NOTE | 2020-04-26 22:04 | EKG REPORT ---
SEVERITY:- ABNORMAL ECG - SINUS RHYTHM PROBABLE LEFT ATRIAL ABNORMALITY RIGHT BUNDLE BRANCH BLOCK : Confirmed by: Marlys Borden MD 26-Apr-2020 22:03:28
[2020-04-27 06:42] LABS: HEMATOCRIT 29.5 % (37.9-51.0); HEMOGLOBIN 9.9 g/dL (13.5-17.0); MEAN CORPUSCULAR HEMOGLOBIN 28.2 pg (27.0-33.4); MEAN CORPUSCULAR HGB CONC 33.4 g/dL (32.0-36.0); MEAN CORPUSCULAR VOLUME 84 fl (80-97); PLATELET COUNT 161 10^3/uL (150-450); RED CELL DISTRIBUTION WIDTH 15.7 % (11.5-14.0); WHITE BLOOD COUNT 6.9 10^3/uL (4.0-10.5)
[2020-04-27 07:10] LABS: ALBUMIN 3.5 g/dL (3.5-5.0); ALKALINE PHOSPHATASE 83 U/L (38-126); ANION GAP 10 (5-19); ASPARTATE AMINO TRANSFERASE 13 U/L (17-59); BILIRUBIN,DIRECT 0.4 mg/dL (0.0-0.4); BILIRUBIN,TOTAL 0.4 mg/dL (0.2-1.3); BLOOD UREA NITROGEN 35 mg/dL (7-20); CALCIUM 8.8 mg/dL (8.4-10.2); CARBON DIOXIDE 22 mmol/L (22-30); CHLORIDE 111 mmol/L (98-107); CHOLESTEROL 110.71 mg/dL (0-200); GLUCOSE 114 mg/dL (75-110); POTASSIUM 4.2 mmol/L (3.6-5.0); TOTAL PROTEIN 6.1 g/dL (6.3-8.2); TRIGLYCERIDES 135 mg/dL (<150)
[2020-04-27 07:21] LABS: DIRECT LDL 36 mg/dL (<100)
--- NOTE | 2020-04-27 09:54 | PDOC PROGRESS REPORT ---
Subjective Progress Note for:: 04/27/20 Subjective:: 60 year old male with history of hypertension, diabetes mellitus, recent history of upper GI bleed admitted to [facility] at that time stopped taking aspirin after that came to the emergency room after passing out. He passed out for a few minutes as per the patient. When the EMS arrived he was covered in black-colored stool. Also has a vomitings and mild abdominal pain. In the emergency room hemoglobin is 11. Surgical consult was requested. Patien t will be n.p.o. Patient was given Protonix bolus. To type and crossmatch and for 2 units of blood transfusion if needed. COVID-19 is pending at this time. pt Wants to be a full code. 04/27/[id number]-old male with history of hypertension, diabetes mellitus, history of upper GI bleed admitted with melena and nausea vomiting's. EGD was negative. Patient is scheduled for colonoscopy. 2 units of PRBC on hold. Hemoglobin is 9.9. Plan is to closely monitor the labs at this time. For the blood in the bed communicating well not in distress. Reason For Visit: UPPER GI BLEED Physical Exam Vital Signs: Temp Pulse Resp BP Pulse Ox 98.0 F 93 16 151/87 H 95 04/27/20 08:05 04/27/20 08:05 04/27/20 08:05 04/27/20 08:05 04/27/20 08:05 Intake & Output 04/26/20 04/27/20 04/28/20 06:59 06:59 06:59 Intake Total 300 Output Total 1100 Balance -800 Weight 55.3 kg General appearance: PRESENT: no acute distress Head exam: PRESENT: normocephalic Eye exam: PRESENT: PERRLA Mouth exam: PRESENT: dry mucosa Teeth exam: PRESENT: poor dentation Neck exam: ABSENT: carotid bruit, JVD, lymphadenopathy, thyromegaly Respiratory exam: PRESENT: decreased breath sounds Cardiovascular exam: PRESENT: RRR. ABSENT: diastolic murmur, rubs, systolic murmur Pulses: PRESENT: normal dorsalis pedis pul GI/Abdominal exam: PRESENT: ascites Rectal exam: PRESENT: deferred Extremities exam: PRESENT: full ROM. ABSENT: calf tenderness, clubbing, pedal edema Neurological exam: PRESENT: alert, awake, oriented to person, oriented to place, oriented to time, oriented to situation, CN II-XII grossly intact. ABSENT: motor sensory deficit Psychiatric exam: PRESENT: appropriate affect, normal mood. ABSENT: homicidal ideation, suicidal ideation Skin exam: PRESENT: dry, intact, warm. ABSENT: cyanosis, rash Results Laboratory Results: 04/27/20 05:36 04/27/20 05:36 04/26/20 04/26/20 04/26/20 10:43 10:43 10:43 WBC 8.2 RBC 3.91 L Hgb 11.0 L Hct 32.8 L MCV 84 MCH 28.0 MCHC 33.4 RDW 15.4 H Plt Count 176 Seg Neutrophils % 89.1 H Sodium 143.6 Potassium 4.5 Chloride 109 H Carbon Dioxide 25 Anion Gap 10 BUN 41 H Creatinine 2.63 H Est GFR ( Amer) 30 L Glucose 172 H Calcium 9.0 Magnesium Total Bilirubin 0.4 AST 12 L Alkaline Phosphatase 98 Total Protein 6.8 Albumin 3.9 Triglycerides Cholesterol LDL Cholesterol Direct VLDL Cholesterol HDL Cholesterol TSH Urine Color Urine Appearance Urine pH Ur Specific [place] Urine Protein Urine Glucose (UA) Urine Ketones Urine Blood Urine Nitrite Ur Leukocyte Esterase Urine WBC (Auto) Urine RBC (Auto) Blood Type O POSITIVE Antibody Screen NEGATIVE 04/26/20 04/26/20 04/27/20 12:30 19:25 05:36 WBC 8.2 6.9 RBC 3.74 L 3.50 L Hgb 10.6 L 9.9 L Hct 31.6 L 29.5 L MCV 84 84 MCH 28.4 28.2 MCHC 33.6 33.4 RDW 15.8 H 15.7 H Plt Count 171 161 Seg Neutrophils % 72.6 Sodium Potassium Chloride Carbon Dioxide Anion Gap BUN Creatinine Est GFR ( Amer) Glucose Calcium Magnesium Total Bilirubin AST Alkaline Phosphatase Total Protein Albumin Triglycerides Cholesterol LDL Cholesterol Direct VLDL Cholesterol HDL Cholesterol TSH Urine Color YELLOW Urine Appearance SLIGHTLY-CLOUDY Urine pH 6.0 Ur Specific [place] 1.011 Urine Protein 100 H Urine Glucose (UA) NEGATIVE Urine Ketones NEGATIVE Urine Blood SMALL H Urine Nitrite NEGATIVE Ur Leukocyte Esterase MODERATE H Urine WBC (Auto) 31 Urine RBC (Auto) 1 Blood Type Antibody Screen 04/27/20 04/27/20 05:36 05:36 WBC RBC Hgb Hct MCV MCH MCHC RDW Plt Count Seg Neutrophils % Sodium 142.7 Potassium 4.2 Chloride 111 H Carbon Dioxide 22 Anion Gap 10 BUN 35 H Creatinine 2.46 H Est GFR ( Amer) 33 L Glucose 114 H Calcium 8.8 Magnesium 1.9 Total Bilirubin 0.4 AST 13 L Alkaline Phosphatase 83 Total Protein 6.1 L Albumin 3.5 Triglycerides 135 Cholesterol 110.71 LDL Cholesterol Direct 36 VLDL Cholesterol 27.0 HDL Cholesterol 37 L TSH 0.59 Urine Color Urine Appearance Urine pH Ur Specific [place] Urine Protein Urine Glucose (UA) Urine Ketones Urine Blood Urine Nitrite Ur Leukocyte Esterase Urine WBC (Auto) Urine RBC (Auto) Blood Type Antibody Screen 04/26/20 04/26/20 10:43 10:43 Creatine Kinase 39 L Troponin I < 0.012 Impressions: Abdomen/Pelvis CT 04/26/20 00:00 IMPRESSION: Small hiatal hernia. Minimal right pleural effusion. Small renal vascular calcifications with cortical atrophy in each kidney. Diverticulosis coli. Osseous findings as described. No evidence of active GI bleeding. Chest X-Ray 04/26/20 14:06 IMPRESSION: NO ACUTE RADIOGRAPHIC FINDING IN THE CHEST. Assessment and Plan - Diagnosis (1) UGIB (upper gastrointestinal bleed) Is this a current diagnosis for this admission?: Yes Plan: 04/26/2020-patient is going to be admitted to [facility] as inpatient. Diagnosis upper GI bleed. Type and screen to be done to hold 2 units of PRBC if needed. GI prophylaxis initiated. On SCDs. To hold aspirin. Patient denies using ibuprofen at home. Follow-up CBC was requested for this evening. Patient will be n.p.o. for EGD and colonoscopy. Consulted Dr. Ford. 04/27/2020-patient has a EGD was done which was normal. Colonoscopy pending. Hemoglobin 9.9. 2 units of PRBC on hold. Patient is comfortable in the bed communicating well. Not in distress. Patient is still n.p.o. (2) HTN (hypertension) Qualifiers: Hypertension type: essential hypertension Qualified Code(s): I10 - Essential (primary) hypertension Is this a current diagnosis for this admission?: No Plan: 04/26/2020-patient has history of chronic essential hypertension. Blood pressure is 180/103 in the ER. Started on IV hydralazine 10 mg every 3 hours as needed for systolic blood pressure more than 170. 04/27/20-blood pressure today's 152/82. Stable. (3) CKD (chronic kidney disease) stage 4, GFR 15-29 ml/min Is this a current diagnosis for this admission?: No Plan: 04/26/2020-patient has history of chronic kidney disease. He has a stage III kidney disease. CKD stable. 04/27/2020-patient has history of CKD stage III. Creatinine is 2.46. Plan is to closely monitor the labs at this time. (4) Diabetes Qualifiers: Diabetes mellitus type: type 2 Is this a current diagnosis for this admission?: No Plan: 04/26/2020-patient has history of type [address] him on insulin sliding scale every 6 hours. Patient is n.p.o. at this time. 04/27/20-patient is n.p.o. at this time. Blood sugar is 116. On insulin sliding scale before meals and at bedtime. - Time Anticipated Discharge Disposition: Home, Self Care Anticipated Discharge Timeframe: within 48 hours
[2020-04-27] MEDS: INSULIN REG, HUMAN 100 UNIT/ML 3 ML VIAL (PYX) SUBCUT SCH ×4 (10:39→17:29)
[2020-04-27] MEDS: PANTOPRAZOLE SODIUM 40 MG VIAL IV SCH ×2 (10:42→22:23)
[2020-04-27] MEDS: ONDANSETRON HCL INJ/PF 4 MG/2 ML SDV IV PRN ×2 (13:02→17:32)
[2020-04-27] MEDS: HYDRALAZINE HCL INJ/PF 20 MG/1 ML SDV IV PRN (17:32)
--- NOTE | 2020-04-27 18:40 | PDOC PROGRESS REPORT ---
Subjective Progress Note for:: 04/27/20 Subjective:: 50-year-old male admitted with melena. He reports that he "feels fine" today. He has not consumed but approximately one quarter of his bowel prep. The patient is current refusing to drink anymore. He denies chest pain, shortness of breath, fevers, chills, abdominal pain, headache, dizziness, blurry vision. He does report nausea and vomiting. He denies any hematemesis or hematochezia. Reason For Visit: UPPER GI BLEED Physical Exam Vital Signs: Temp Pulse Resp BP Pulse Ox 97.8 F 104 H 17 165/99 H 99 04/27/20 11:55 04/27/20 11:55 04/27/20 11:55 04/27/20 11:55 04/27/20 11:55 Intake & Output 04/26/20 04/27/20 04/28/20 06:59 06:59 06:59 Intake Total 300 Output Total 1100 Balance -800 Weight 55.3 kg General appearance: PRESENT: no acute distress, cooperative Head exam: PRESENT: atraumatic, normocephalic Eye exam: PRESENT: EOMI, PERRLA. ABSENT: scleral icterus Mouth exam: PRESENT: moist, neck supple Neck exam: ABSENT: meningismus, tenderness, thyromegaly, tracheal deviation Respiratory exam: PRESENT: unlabored. ABSENT: tachypnea, wheezes Cardiovascular exam: ABSENT: tachycardia GI/Abdominal exam: PRESENT: soft. ABSENT: distended, guarding, tenderness Rectal exam: PRESENT: deferred Extremities exam: ABSENT: clubbing Musculoskeletal exam: ABSENT: deformity Neurological exam: PRESENT: alert, awake, oriented to person, oriented to place, oriented to time, oriented to situation, CN II-XII grossly intact. ABSENT: motor sensory deficit Psychiatric exam: ABSENT: agitated, anxious, depressed Focused psych exam: ABSENT: delusional Skin exam: ABSENT: cyanosis, erythema, jaundice Results Laboratory Results: 04/27/20 05:36 04/27/20 05:36 04/26/20 04/26/20 04/27/20 10:43 19:25 05:36 WBC 8.2 6.9 RBC 3.74 L 3.50 L Hgb 10.6 L 9.9 L Hct 31.6 L 29.5 L MCV 84 84 MCH 28.4 28.2 MCHC 33.6 33.4 RDW 15.8 H 15.7 H Plt Count 171 161 Seg Neutrophils % 72.6 Sodium Potassium Chloride Carbon Dioxide Anion Gap BUN Creatinine Est GFR ( Amer) Glucose Calcium Magnesium Total Bilirubin AST Alkaline Phosphatase Total Protein Albumin Triglycerides Cholesterol LDL Cholesterol Direct VLDL Cholesterol HDL Cholesterol TSH Blood Type O POSITIVE Antibody Screen NEGATIVE 04/27/20 04/27/20 05:36 05:36 WBC RBC Hgb Hct MCV MCH MCHC RDW Plt Count Seg Neutrophils % Sodium 142.7 Potassium 4.2 Chloride 111 H Carbon Dioxide 22 Anion Gap 10 BUN 35 H Creatinine 2.46 H Est GFR ( Amer) 33 L Glucose 114 H Calcium 8.8 Magnesium 1.9 Total Bilirubin 0.4 AST 13 L Alkaline Phosphatase 83 Total Protein 6.1 L Albumin 3.5 Triglycerides 135 Cholesterol 110.71 LDL Cholesterol Direct 36 VLDL Cholesterol 27.0 HDL Cholesterol 37 L TSH 0.59 Blood Type Antibody Screen 04/26/20 04/26/20 10:43 10:43 Creatine Kinase 39 L Troponin I < 0.012 Impressions: Abdomen/Pelvis CT 04/26/20 00:00 IMPRESSION: Small hiatal hernia. Minimal right pleural effusion. Small renal vascular calcifications with cortical atrophy in each kidney. Diverticulosis coli. Osseous findings as described. No evidence of active GI bleeding. Chest X-Ray 04/26/20 14:06 IMPRESSION: NO ACUTE RADIOGRAPHIC FINDING IN THE CHEST. Assessment & Plan - Diagnosis (1) Melena Is this a current diagnosis for this admission?: Yes - Time Anticipated Discharge Disposition: unknown Anticipated Discharge Timeframe: unknown - Plan Summary Plan Summary: 60-year-old male admitted with melena. The patient underwent EGD, that was essentially normal. He was prescribed a bowel prep, with anticipation of performing a colonoscopy today. The patient has refused to drink his bowel prep. He reports that it "makes him sick". He wishes to defer colonoscopy to an outpatient setting. I have discussed this with the patient, and he is aware of the risks of delaying and investigative procedure. After much discussion, the patient has assured me that he wishes to pursue outpatient colonoscopy. Surgery will sign off at this time. Please renotify with any questions or concerns.
[2020-04-28] MEDS: HYDRALAZINE HCL INJ/PF 20 MG/1 ML SDV IV PRN (00:38)
[2020-04-28] MEDS: INSULIN REG, HUMAN 100 UNIT/ML 3 ML VIAL (PYX) SUBCUT SCH ×5 (06:27→22:04)
[2020-04-28 06:42] LABS: HEMATOCRIT 32.5 % (37.9-51.0); HEMOGLOBIN 10.8 g/dL (13.5-17.0); MEAN CORPUSCULAR HEMOGLOBIN 27.8 pg (27.0-33.4); MEAN CORPUSCULAR HGB CONC 33.1 g/dL (32.0-36.0); MEAN CORPUSCULAR VOLUME 84 fl (80-97); PLATELET COUNT 173 10^3/uL (150-450); RED BLOOD COUNT 3.87 10^6/uL (4.35-5.55); RED CELL DISTRIBUTION WIDTH 15.3 % (11.5-14.0); WHITE BLOOD COUNT 8.4 10^3/uL (4.0-10.5)
--- NOTE | 2020-04-28 09:39 | PDOC PROGRESS REPORT ---
Subjective Progress Note for:: 04/28/20 Subjective:: 60 year old male with history of hypertension, diabetes mellitus, recent history of upper GI bleed admitted to [facility] at that time stopped taking aspirin after that came to the emergency room after passing out. He passed out for a few minutes as per the patient. When the EMS arrived he was covered in black-colored stool. Also has a vomitings and mild abdominal pain. In the emergency room hemoglobin is 11. Surgical consult was requested. Patien t will be n.p.o. Patient was given Protonix bolus. To type and crossmatch and for 2 units of blood transfusion if needed. COVID-19 is pending at this time. pt Wants to be a full code. 04/27/[id number]-kldo-old male with history of hypertension, diabetes mellitus, history of upper GI bleed admitted with melena and nausea vomiting's. EGD was negative. Patient is scheduled for colonoscopy. 2 units of PRBC on hold. Hemoglobin is 9.9. Plan is to closely monitor the labs at this time. For the blood in the bed communicating well not in distress. [id number]-old male admitted with melena EGD was negative. Patient is supposed to go for colonoscopy he is not taking the bowel prep. Hemoglobin is 10.8 today. No melena noticed. Patient said he has no place to go. Requesting for placement. Reason For Visit: UPPER GI BLEED Physical Exam Vital Signs: Temp Pulse Resp BP Pulse Ox 98.4 F 113 H 17 164/93 H 96 04/28/20 07:36 04/28/20 07:36 04/28/20 07:36 04/28/20 07:36 04/28/20 07:36 Intake & Output 04/27/20 04/28/20 04/29/20 06:59 06:59 06:59 Intake Total 300 360 Output Total 1100 2024 Balance -800 -1665 Weight 55.3 kg 55.3 kg General appearance: PRESENT: no acute distress, cooperative Eye exam: PRESENT: PERRLA Mouth exam: PRESENT: moist, tongue midline Teeth exam: PRESENT: poor dentation Neck exam: ABSENT: carotid bruit, JVD, lymphadenopathy, thyromegaly Respiratory exam: PRESENT: decreased breath sounds Cardiovascular exam: PRESENT: RRR. ABSENT: diastolic murmur, rubs, systolic murmur GI/Abdominal exam: PRESENT: normal bowel sounds, soft. ABSENT: distended, guarding, mass, organolmegaly, rebound, tenderness Rectal exam: PRESENT: deferred Extremities exam: PRESENT: full ROM. ABSENT: calf tenderness, clubbing, pedal edema Neurological exam: PRESENT: alert, awake, oriented to person, oriented to place, oriented to time, oriented to situation, CN II-XII grossly intact. ABSENT: motor sensory deficit Psychiatric exam: PRESENT: appropriate affect, normal mood. ABSENT: homicidal ideation, suicidal ideation Results Laboratory Results: 04/28/20 05:28 04/27/20 05:36 04/28/20 05:28 WBC 8.4 RBC 3.87 L Hgb 10.8 L Hct 32.5 L MCV 84 MCH 27.8 MCHC 33.1 RDW 15.3 H Plt Count 173 04/26/20 12:30 Clean Catch Midstream Urine Culture - Final Klebsiella Pneumoniae 04/26/20 04/26/20 10:43 10:43 Creatine Kinase 39 L Troponin I < 0.012 Impressions: Abdomen/Pelvis CT 04/26/20 00:00 IMPRESSION: Small hiatal hernia. Minimal right pleural effusion. Small renal vascular calcifications with cortical atrophy in each kidney. Diverticulosis coli. Osseous findings as described. No evidence of active GI bleeding. Chest X-Ray 04/26/20 14:06 IMPRESSION: NO ACUTE RADIOGRAPHIC FINDING IN THE CHEST. Assessment and Plan - Diagnosis (1) UGIB (upper gastrointestinal bleed) Is this a current diagnosis for this admission?: Yes Plan: 04/26/2020-patient is going to be admitted to [facility] as inpatient. Diagnosis upper GI bleed. Type and screen to be done to hold 2 units of PRBC if needed. GI prophylaxis initiated. On SCDs. To hold aspirin. Patient denies using ibuprofen at home. Follow-up CBC was requested for this evening. Patient will be n.p.o. for EGD and colonoscopy. Consulted Dr. Ford. 04/27/2020-patient has a EGD was done which was normal. Colonoscopy pending. Hemoglobin 9.9. 2 units of PRBC on hold. Patient is comfortable in the bed communicating well. Not in distress. Patient is still n.p.o. 04/28/2020-patient came in with upper GI bleed and melena. EGD was negative. Patient is refusing colonoscopy at this time. He is also requesting for placement. Latest hemoglobin is 10.8. (2) HTN (hypertension) Qualifiers: Hypertension type: essential hypertension Qualified Code(s): I10 - Essential (primary) hypertension Is this a current diagnosis for this admission?: No Plan: 04/26/2020-patient has history of chronic essential hypertension. Blood pressure is 180/103 in the ER. Started on IV hydralazine 10 mg every 3 hours as needed for systolic blood pressure more than 170. 04/27/20-blood pressure today's 152/82. Stable. 04/28/20-blood pressure today is 168/83. To start him on a diet and restart his home medications. (3) CKD (chronic kidney disease) stage 4, GFR 15-29 ml/min Is this a current diagnosis for this admission?: No Plan: 04/26/2020-patient has history of chronic kidney disease. He has a stage III kidney disease. CKD stable. 04/27/2020-patient has history of CKD stage III. Creatinine is 2.46. Plan is to closely monitor the labs at this time. (4) Diabetes Qualifiers: Diabetes mellitus type: type 2 Is this a current diagnosis for this admission?: No Plan: 04/26/2020-patient has history of type [address] him on insulin sliding scale every 6 hours. Patient is n.p.o. at this time. 04/27/20-patient is n.p.o. at this time. Blood sugar is 116. On insulin sliding scale before meals and at bedtime. 04/28/2020-patient latest blood sugar is 163. To start him on diabetic diet and to start him on insulin sliding scale before meals and at bedtime. Diet exercise weight loss lifestyle modifications discussed with the patient. - Time Anticipated Discharge Disposition: [facility] Anticipated Discharge Timeframe: within 72 hours
[2020-04-28] MEDS ORDERED: GLUCAGON,HUMAN RECOMB 1 MG INJ IM PRN (09:41)
[2020-04-28] MEDS ORDERED: DEXTROSE 50%-WATER 25 GM/50 ML DISP.SYRIN IV PRN ×2 (09:41)
[2020-04-28] MEDS ORDERED: DEXTROSE 40% GEL 15 GM TUBE PO PRN ×2 (09:41)
[2020-04-28] MEDS ORDERED: (PENDING PHARMACY ID) (Lisinopril [Prinivil] 20 MG) PO SCH (10:00)
[2020-04-28] MEDS: METOPROLOL TARTRATE 25 MG TABLET PO SCH ×2 (11:41→22:02)
[2020-04-28] MEDS: AMLODIPINE BESYLATE 10 MG TABLET PO SCH (11:41)
[2020-04-28] MEDS: ATORVASTATIN CALCIUM 40 MG TABLET PO SCH (22:02)
[2020-04-28] MEDS: GABAPENTIN 300 MG CAPSULE PO SCH (22:02)
[2020-04-29 06:24] LABS: ABSOLUTE LYMPHOCYTES (AUTO) 1.3 10^3/uL (0.5-4.7); ABSOLUTE MONOCYTES (AUTO) 0.7 10^3/uL (0.1-1.4); ABSOLUTE NEUT (AUTO) 5.8 10^3/uL (1.7-8.2); BASOPHILS % (AUTO) 0.3 % (0-2); EOSINOPHILS % (AUTO) 0.2 % (0-6); HEMATOCRIT 31.9 % (37.9-51.0); HEMOGLOBIN 10.8 g/dL (13.5-17.0); LYMPHOCYTES % (AUTO) 16.8 % (13-45); MEAN CORPUSCULAR HEMOGLOBIN 28.3 pg (27.0-33.4); MEAN CORPUSCULAR HGB CONC 33.9 g/dL (32.0-36.0); MEAN CORPUSCULAR VOLUME 84 fl (80-97); MONOCYTES % (AUTO) 8.7 % (3-13); PLATELET COUNT 182 10^3/uL (150-450); RED BLOOD COUNT 3.82 10^6/uL (4.35-5.55); RED CELL DISTRIBUTION WIDTH 15.4 % (11.5-14.0); TOTAL CELLS COUNTED % (AUTO) 100 %; WHITE BLOOD COUNT 7.8 10^3/uL (4.0-10.5)
[2020-04-29 06:53] LABS: ALBUMIN 3.4 g/dL (3.5-5.0); ALKALINE PHOSPHATASE 85 U/L (38-126); ANION GAP 9 (5-19); ASPARTATE AMINO TRANSFERASE 14 U/L (17-59); BILIRUBIN,DIRECT 0.2 mg/dL (0.0-0.4); BILIRUBIN,TOTAL 0.4 mg/dL (0.2-1.3); BLOOD UREA NITROGEN 41 mg/dL (7-20); CALCIUM 9.1 mg/dL (8.4-10.2); CARBON DIOXIDE 21 mmol/L (22-30); CHLORIDE 110 mmol/L (98-107); GLUCOSE 133 mg/dL (75-110)
[2020-04-29 07:09] LABS: POTASSIUM 3.7 mmol/L (3.6-5.0)
[2020-04-29] MEDS: INSULIN REG, HUMAN 100 UNIT/ML 3 ML VIAL (PYX) SUBCUT SCH ×4 (07:55→21:10)
--- NOTE | 2020-04-29 09:08 | PDOC PROGRESS REPORT ---
Subjective Progress Note for:: 04/29/20 Subjective:: 60 year old male with history of hypertension, diabetes mellitus, recent history of upper GI bleed admitted to [facility] at that time stopped taking aspirin after that came to the emergency room after passing out. He passed out for a few minutes as per the patient. When the EMS arrived he was covered in black-colored stool. Also has a vomitings and mild abdominal pain. In the emergency room hemoglobin is 11. Surgical consult was requested. Patien t will be n.p.o. Patient was given Protonix bolus. To type and crossmatch and for 2 units of blood transfusion if needed. COVID-19 is pending at this time. pt Wants to be a full code. 04/27/[id number]-joag-old male with history of hypertension, diabetes mellitus, history of upper GI bleed admitted with melena and nausea vomiting's. EGD was negative. Patient is scheduled for colonoscopy. 2 units of PRBC on hold. Hemoglobin is 9.9. Plan is to closely monitor the labs at this time. For the blood in the bed communicating well not in distress. 04/28/2006-94-amal-old male admitted with melena EGD was negative. Patient is supposed to go for colonoscopy he is not taking the bowel prep. Hemoglobin is 10.8 today. No melena noticed. Patient said he has no place to go. Requesting for placement. 04/29/2020-patient is refusing colonoscopy, patient does not have a place to go. legal records manager consult was requested for placement. Reason For Visit: UPPER GI BLEED Physical Exam Vital Signs: Temp Pulse Resp BP Pulse Ox 98.0 F 83 17 128/80 H 98 04/29/20 07:13 04/29/20 07:13 04/29/20 07:13 04/29/20 07:13 04/29/20 07:13 Intake & Output 04/28/20 04/29/20 04/30/20 06:59 06:59 06:59 Intake Total 360 0 Output Total 2024 1150 Balance -1665 890 Weight 55.3 kg 55.4 kg General appearance: PRESENT: no acute distress, thin Head exam: PRESENT: atraumatic Eye exam: PRESENT: PERRLA Mouth exam: PRESENT: moist, tongue midline Teeth exam: PRESENT: poor dentation Neck exam: ABSENT: carotid bruit, JVD, lymphadenopathy, thyromegaly Respiratory exam: PRESENT: decreased breath sounds Cardiovascular exam: PRESENT: RRR. ABSENT: diastolic murmur, rubs, systolic mu rmur GI/Abdominal exam: PRESENT: normal bowel sounds, soft. ABSENT: distended, guarding, mass, organolmegaly, rebound, tenderness Rectal exam: PRESENT: deferred Extremities exam: PRESENT: full ROM. ABSENT: calf tenderness, clubbing, pedal edema Neurological exam: PRESENT: alert, awake, oriented to person, oriented to place, oriented to time, oriented to situation, CN II-XII grossly intact. ABSENT: motor sensory deficit Psychiatric exam: PRESENT: appropriate affect, normal mood. ABSENT: homicidal ideation, suicidal ideation Results Laboratory Results: 04/29/20 05:53 04/29/20 05:53 04/29/20 04/29/20 05:53 05:53 WBC 7.8 RBC 3.82 L Hgb 10.8 L Hct 31.9 L MCV 84 MCH 28.3 MCHC 33.9 RDW 15.4 H Plt Count 182 Seg Neutrophils % 74.0 Sodium 140.4 Potassium 3.7 Chloride 110 H Carbon Dioxide 21 L Anion Gap 9 BUN 41 H Creatinine 2.52 H Est GFR ( Amer) 32 L Glucose 133 H Calcium 9.1 Magnesium 2.0 Total Bilirubin 0.4 AST 14 L Alkaline Phosphatase 85 Total Protein 6.0 L Albumin 3.4 L 04/26/20 12:30 Clean Catch Midstream Urine Culture - Final Klebsiella Pneumoniae 04/26/20 04/26/20 10:43 10:43 Creatine Kinase 39 L Troponin I < 0.012 Impressions: Abdomen/Pelvis CT 04/26/20 00:00 IMPRESSION: Small hiatal hernia. Minimal right pleural effusion. Small renal vascular calcifications with cortical atrophy in each kidney. Diverticulosis coli. Osseous findings as described. No evidence of active GI bleeding. Chest X-Ray 04/26/20 14:06 IMPRESSION: NO ACUTE RADIOGRAPHIC FINDING IN THE CHEST. Assessment and Plan - Diagnosis (1) UGIB (upper gastrointestinal bleed) Is this a current diagnosis for this admission?: Yes Plan: 04/26/2020-patient is going to be admitted to [facility] as inpatient. Diagnosis upper GI bleed. Type and screen to be done to hold 2 units of PRBC if needed. GI prophylaxis initiated. On SCDs. To hold aspirin. Patient denies using ibupro fen at home. Follow-up CBC was requested for this evening. Patient will be n.p.o. for EGD and colonoscopy. Consulted Dr. Ford. 04/27/2020-patient has a EGD was done which was normal. Colonoscopy pending. Hemoglobin 9.9. 2 units of PRBC on hold. Patient is comfortable in the bed communicating well. Not in distress. Patient is still n.p.o. 04/28/2020-patient came in with upper GI bleed and melena. EGD was negative. Patient is refusing colonoscopy at this time. He is also requesting for placement. Latest hemoglobin is 10.8. 04/29/20-EGD was normal. Patient is refusing colonoscopy. Hemoglobin stable around 10.8. Waiting for placement. (2) HTN (hypertension) Qualifiers: Hypertension type: essential hypertension Qualified Code(s): I10 - Essential (primary) hypertension Is this a current diagnosis for this admission?: No Plan: 04/26/2020-patient has history of chronic essential hypertension. Blood pressure is 180/103 in the ER. Started on IV hydralazine 10 mg every 3 hours as needed for systolic blood pressure more than 170. 04/27/20-blood pressure today's 152/82. Stable. 04/28/20-blood pressure today is 168/83. To start him on a diet and restart his home medications. 04/29/2020-blood pressure today is 138/92. Stable. (3) CKD (chronic kidney disease) stage 4, GFR 15-29 ml/min Is this a current diagnosis for this admission?: No Plan: 04/26/2020-patient has history of chronic kidney disease. He has a stage III kidney disease. CKD stable. 04/27/2020-patient has history of CKD stage III. Creatinine is 2.46. Plan is to closely monitor the labs at this time. 04/29/2020-latest serum creatinine is 2.5. Stable. (4) Diabetes Qualifiers: Diabetes mellitus type: type 2 Is this a current diagnosis for this admission?: No Plan: 04/26/2020-patient has history of type [address] him on insulin sliding scale every 6 hours. Patient is n.p.o. at this time. 04/27/20-patient is n.p.o. at this time. Blood sugar is 116. On insulin sliding scale before meals and at bedtime. 04/28/2020-patient latest blood sugar is 163. To start him on diabetic diet and to start him on insulin sliding scale before meals and at bedtime. Diet exercise weight loss lifestyle modifications discussed with the patient. 04/29/2020-latest blood sugar is 130. Plan is to continue insulin sliding scale before meals and at bedtime. - Time Anticipated Discharge Disposition: Assisted Living with Home Health Services Anticipated Discharge Timeframe: within 48 hours
[2020-04-29] MEDS: GABAPENTIN 300 MG CAPSULE PO SCH ×2 (09:16→21:06)
[2020-04-29] MEDS: METOPROLOL TARTRATE 25 MG TABLET PO SCH ×2 (09:16→21:06)
[2020-04-29] MEDS: AMLODIPINE BESYLATE 10 MG TABLET PO SCH (09:16)
[2020-04-29] MEDS: PANTOPRAZOLE SODIUM 40 MG TABLET.DR PO SCH (09:16)
[2020-04-29] MEDS: LISINOPRIL 10 MG TABLET PO SCH (11:47)
[2020-04-29] MEDS: ATORVASTATIN CALCIUM 40 MG TABLET PO SCH (21:06)
[2020-04-30] MEDS: INSULIN REG, HUMAN 100 UNIT/ML 3 ML VIAL (PYX) SUBCUT SCH ×2 (10:16→13:24)
[2020-04-30] MEDS: PANTOPRAZOLE SODIUM 40 MG TABLET.DR PO SCH (10:18)
[2020-04-30] MEDS: LISINOPRIL 10 MG TABLET PO SCH (10:18)
[2020-04-30] MEDS: GABAPENTIN 300 MG CAPSULE PO SCH (10:18)
[2020-04-30] MEDS: AMLODIPINE BESYLATE 10 MG TABLET PO SCH (10:18)
[2020-04-30] MEDS: METOPROLOL TARTRATE 25 MG TABLET PO SCH (10:18)
[2020-04-30 13:03] VITALS: BP 125/76
[2020-04-30] MEDS ORDERED: TUBERCULIN,PURIF.PROT.DERIV. 5 TU/0.1 ML TEST 1 ML VIAL ID ONE (14:11)
--- NOTE | 2020-04-30 15:32 | PDOC DISCHARGE SUMMARY ---
Impression - Admit/DC Date/PCP Admission Date/Primary Care Provider: 04/26/20 14:33 Discharge Date: 04/30/20 - Discharge Diagnosis (1) Melena Is this a current diagnosis for this admission?: Yes (2) CKD (chronic kidney disease) stage 4, GFR 15-29 ml/min Is this a current diagnosis for this admission?: No (3) HTN (hypertension) Is this a current diagnosis for this admission?: No (4) History of CVA (cerebrovascular accident) Is this a current diagnosis for this admission?: No - Additional Information Resuscitation Status: Full Code Discharge Diet: As Tolerated Discharge Activity: Activity As Tolerated Referrals: TRACY AMADO MD [COMMUNITY BASED STAFF] - 05/09/20 2:30 pm THAI AHUMADA MD [ACTIVE STAFF] - Prescriptions: Pantoprazole Sodium [Protonix [address] Tablet] 40 mg PO QAM #30 Home Medications: Amlodipine Besylate [Norvasc 10 mg Tablet] 10 mg PO DAILY 06/25/18 Metoprolol Tartrate [Lopressor 25 mg Tablet] 25 mg PO Q12 tablet 06/30/18 Atorvastatin Calcium [Lipitor 40 mg Tablet] 40 mg PO QHS 04/26/20 Gabapentin [Neurontin 300 mg Capsule] 300 mg PO QAM 04/26/20 Gabapentin [Neurontin 300 mg Capsule] 600 mg PO QHS 04/26/20 Lisinopril [Prinivil] 20 mg PO DAILY 04/26/20 Pantoprazole Sodium [Protonix [address] Tablet] 40 mg PO QAM #30 04/30/20 History of Present Illiness History of Present Illness: CHRISSY NANCE is a 60 year old male with history of hypertension, diabetes mellitus, recent history of upper GI bleed admitted to [facility] at that time stopped taking aspirin after that came to the emergency room after passing out. He passed out for a few minutes as per the patient. When the EMS arrived he was covered in black-colored stool. Also has a vomitings and mild abdominal pain. In the emergency room hemoglobin is 11. Surgical consult was requested. Patient will be n.p.o. Patient was given Protonix bolus. To type and crossmatch and for 2 units of blood transfusion if needed. COVID-19 is pending at this time. pt Wants to be a full code. Hospital Course Hospital Course: Patient was admitted to the hospital and monitored. Reviewing the progress notes from prior provider, he did not seem to have any recurrent episode of passing out throughout this hospitalization. No arrhythmias have been noted. Patient has no new neurological deficits. Notably, it is unclear if patient ever did pass out as this was not documented on his initial presentation to the ER. Regarding patient's melena and coffee-ground emesis, patient underwent EGD which did not reveal any evidence of bleeding and only showed some exudative substance. Biopsy was negative for malignancy. Patient was recommended for colonoscopy but he declined colonoscopy and wants to pursue that as outpatient. Patient does not have a history of prior stroke with residual right leg paralysis and right upper extremity paresis. He uses a wheelchair. He has a difficult social situation with his son. Discharge planning has gotten involved and patient's son has agreed to take patient in until patient can be placed in assisted living facility. Patient will receive a PPD today and he will get this read by . as outpatient he has been instructed to get this read in 48 hours. Physical Exam Vital Signs: Temp Pulse Resp BP Pulse Ox 98.1 F 78 19 125/76 97 04/30/20 11:26 04/30/20 11:26 04/30/20 11:26 04/30/20 11:26 04/30/20 11:26 Intake & Output 04/29/20 04/30/20 05/01/20 06:59 06:59 06:59 Intake Total 2040 1101 Output Total 1150 700 Balance 890 401 Weight 55.4 kg 56.4 kg General appearance: PRESENT: no acute distress, cooperative Neck exam: ABSENT: JVD Respiratory exam: PRESENT: unlabored. ABSENT: accessory muscle use, tachypnea GI/Abdominal exam: PRESENT: soft. ABSENT: tenderness Neurological exam: PRESENT: alert, awake, oriented to person, oriented to place, oriented to time Results Laboratory Results: WBC 7.8 10^3/uL (4.0-10.5) 04/29/20 05:53 RBC 3.82 10^6/uL (4.35-5.55) L 04/29/20 05:53 Hgb 10.8 g/dL (13.5-17.0) L 04/29/20 05:53 Hct 31.9 % (37.9-51.0) L 04/29/20 05:53 MCV 84 fl (80-97) 04/29/20 05:53 MCH 28.3 pg (27.0-33.4) 04/29/20 05:53 MCHC 33.9 g/dL (32.0-36.0) 04/29/20 05:53 RDW 15.4 % (11.5-14.0) H 04/29/20 05:53 Plt Count 182 10^3/uL (150-450) 04/29/20 05:53 Lymph % (Auto) 16.8 % (13-45) 04/29/20 05:53 [place] % (Auto) 8.7 % (3-13) 04/29/20 05:53 Eos % (Auto) 0.2 % (0-6) 04/29/20 05:53 Baso % (Auto) 0.3 % (0-2) 04/29/20 05:53 Absolute Neuts (auto) 5.8 10^3/uL (1.7-8.2) 04/29/20 05:53 Absolute Lymphs (auto) 1.3 10^3/uL (0.5-4.7) 04/29/20 05:53 Absolute Monos (auto) 0.7 10^3/uL (0.1-1.4) 04/29/20 05:53 Absolute Eos (auto) 0.0 10^3/uL (0.0-0.6) 04/29/20 05:53 Absolute Basos (auto) 0.0 10^3/uL (0.0-0.2) 04/29/20 05:53 Seg Neutrophils % 74.0 % (42-78) 04/29/20 05:53 PT 14.1 SEC (11.4-15.4) 04/26/20 15:16 INR 1.07 04/26/20 15:16 Sodium 140.4 mmol/L (137-145) 04/29/20 05:53 Potassium 3.7 mmol/L (3.6-5.0) 04/29/20 05:53 Chloride 110 mmol/L (98-107) H 04/29/20 05:53 Carbon Dioxide 21 mmol/L (22-30) L 04/29/20 05:53 Anion Gap 9 (5-19) 04/29/20 05:53 BUN 41 mg/dL (7-20) H 04/29/20 05:53 Creatinine 2.52 mg/dL (0.52-1.25) H 04/29/20 05:53 Est GFR ( Amer) 32 (>60) L 04/29/20 05:53 Est GFR (MDRD) Non-Af 26 (>60) L 04/29/20 05:53 Glucose 133 mg/dL (75-110) H 04/29/20 05:53 POC Glucose 181 mg/dL (70-110) H 04/30/20 11:27 Hemoglobin A1c % 5.3 % (4.7-6.0) 04/27/20 05:36 Calcium 9.1 mg/dL (8.4-10.2) 04/29/20 05:53 Magnesium 2.0 mg/dL (1.6-2.3) 04/29/20 05:53 Total Bilirubin 0.4 mg/dL (0.2-1.3) 04/29/20 05:53 Direct Bilirubin 0.2 mg/dL (0.0-0.4) 04/29/20 05:53 Neonat Total Bilirubin Not Reportable 04/29/20 05:53 Neonat Direct Bilirubin Not Reportable 04/29/20 05:53 Neonat Indirect Bili Not Reportable 04/29/20 05:53 AST 14 U/L (17-59) L 04/29/20 05:53 ALT 6 U/L (<50) 04/29/20 05:53 Alkaline Phosphatase 85 U/L (38-126) 04/29/20 05:53 Creatine Kinase 39 U/L (55-170) L 04/26/20 10:43 Troponin I < 0.012 ng/mL 04/26/20 10:43 Total Protein 6.0 g/dL (6.3-8.2) L 04/29/20 05:53 Albumin 3.4 g/dL (3.5-5.0) L 04/29/20 05:53 Triglycerides 135 mg/dL (<150) 04/27/20 05:36 Cholesterol 110.71 mg/dL (0-200) 04/27/20 05:36 LDL Cholesterol Direct 36 mg/dL (<100) 04/27/20 05:36 VLDL Cholesterol 27.0 mg/dL (10-31) 04/27/20 05:36 HDL Cholesterol 37 mg/dL (>40) L 04/27/20 05:36 TSH 0.59 uIU/mL (0.47-4.68) 04/27/20 05:36 Urine Color YELLOW 04/26/20 12:30 Urine Appearance SLIGHTLY-CLOUDY 04/26/20 12:30 Urine pH 6.0 (5.0-9.0) 04/26/20 12:30 Ur Specific [place] 1.011 04/26/20 12:30 Urine Protein 100 mg/dL (NEGATIVE) H 04/26/20 12:30 Urine Glucose (UA) NEGATIVE mg/dL (NEGATIVE) 04/26/20 12:30 Urine Ketones NEGATIVE mg/dL (NEGATIVE) 04/26/20 12:30 Urine Blood SMALL (NEGATIVE) H 04/26/20 12:30 Urine Nitrite NEGATIVE (NEGATIVE) 04/26/20 12:30 Urine Bilirubin NEGATIVE (NEGATIVE) 04/26/20 12:30 Urine Urobilinogen NEGATIVE mg/dL (<2.0) 04/26/20 12:30 Ur Leukocyte Esterase MODERATE (NEGATIVE) H 04/26/20 12:30 Urine WBC (Auto) 31 /HPF 04/26/20 12:30 Urine RBC (Auto) 1 /HPF 04/26/20 12:30 Urine Bacteria (Auto) TRACE /HPF 04/26/20 12:30 Urine Mucus (Auto) RARE /LPF 04/26/20 12:30 Urine Ascorbic Acid NEGATIVE (NEGATIVE) 04/26/20 12:30 POC Stool Occult Blood POSITIVE (NEGATIVE) 04/26/20 10:28 SARS-CoV-2 (PCR) NEGATIVE (NEGATIVE) 04/26/20 14:23 Blood Type O POSITIVE 04/26/20 10:43 Blood Type Confirm O POSITIVE 04/26/20 19:25 Antibody Screen NEGATIVE 04/26/20 10:43 Crossmatch See Detail 04/26/20 10:43 04/26/20 10:43 Troponin I < 0.012 Impressions: Abdomen/Pelvis CT 04/26/20 00:00 IMPRESSION: Small hiatal hernia. Minimal right pleural effusion. Small renal vascular calcifications with cortical atrophy in each kidney. Diverticulosis coli. Osseous findings as described. No evidence of active GI bleeding. Chest X-Ray 04/26/20 14:06 IMPRESSION: NO ACUTE RADIOGRAPHIC FINDING IN THE CHEST. Plan Time Spent: Greater than 30 Minutes Stroke Is this a Stroke Patient?: Yes Stroke Pt being discharged on Anti-thrombolytic therapy?: No Reason(s) for not prescribing Anti-thrombolytic therapy:: Adverse reaction to drug - bleeding gi Stroke Pt being discharged on Anti-coagulation therapy?: No Reason(s) for not prescribing Anti-coagulation therapy:: Not indicated Stroke Pt being discharged on Statins?: Yes Acute Heart Failure Is this a Heart Failure Patient?: No
[2020-04-30] MEDS ORDERED: TUBERCULIN,PURIF.PROT.DERIV. 5 TU/0.1 ML TEST 1 ML VIAL ID PRN (16:00)
== END 2020-04-30 17:07 | disposition home or self-care (01) | DRG 378 ==
LOC: ER 10:15 → EH 14:33 → 3S 18:15
PROVIDERS: ADMIT Internal Medicine; ATTEND Internal Medicine
PROC: 0DB28ZX Excision of Middle Esophagus, Via Natural or Artificial Opening Endoscopic, Diagnostic (ICD-10-PCS; principal; 2020-04-26 18:45)
DX: K92.1 Melena (principal); I69.351 Hemiplegia and hemiparesis following cerebral infarction affecting right dominant side; N18.4 Chronic kidney disease, stage 4 (severe); I12.9 Hypertensive chronic kidney disease with stage 1 through stage 4 chronic kidney disease, or unspecified chronic kidney disease; K44.9 Diaphragmatic hernia without obstruction or gangrene; E11.22 Type 2 diabetes mellitus with diabetic chronic kidney disease; Z20.828 Contact with and (suspected) exposure to other viral communicable diseases; Z79.4 Long term (current) use of insulin; Z79.899 Other long term (current) drug therapy
CPT/HCPCS: 36415; 43239; 71045; 731; 74176; 80053; 80061; 81001; 82270; 82550; 82962; 83036; 83735; 84443; 84484; 85025; 85027; 85610; 86850; 86900; 86901; 86920; 87086; 87088; 87186; 87635; 88305; 88312; 93005; 93010; 96374; 96375; 99285; C9113; C9803; J0360; J1815; J2405; J2704; J3490; J7030

== ENCOUNTER 2020-06-11 10:19 | Inpatient (IN) | payer MEDICARE ==
[2020-06-11] MEDS ORDERED: NORMAL SALINE 1000 ML 1,000 ML IV ONE ×2 (11:01→14:48)
[2020-06-11 11:19] LABS: HEMATOCRIT 35.2 % (37.9-51.0); HEMOGLOBIN 11.4 g/dL (13.5-17.0); MEAN CORPUSCULAR HGB CONC 32.3 g/dL (32.0-36.0); MEAN CORPUSCULAR VOLUME 87 fl (80-97); PLATELET COUNT 249 10^3/uL (150-450); RED BLOOD COUNT 4.06 10^6/uL (4.35-5.55); RED CELL DISTRIBUTION WIDTH 16.4 % (11.5-14.0); WHITE BLOOD COUNT 15.3 10^3/uL (4.0-10.5)
[2020-06-11 11:26] LABS: ALBUMIN 4.7 g/dL (3.5-5.0); ALKALINE PHOSPHATASE 109 U/L (38-126); ASPARTATE AMINO TRANSFERASE 18 U/L (17-59); BILIRUBIN,DIRECT 0.2 mg/dL (0.0-0.4); BILIRUBIN,TOTAL 0.4 mg/dL (0.2-1.3); BLOOD UREA NITROGEN 58 mg/dL (7-20); CALCIUM 9.9 mg/dL (8.4-10.2); GLUCOSE 233 mg/dL (75-110); POTASSIUM 5.9 mmol/L (3.6-5.0); TOTAL PROTEIN 7.6 g/dL (6.3-8.2)
[2020-06-11 11:31] LABS: CARBON DIOXIDE 13 mmol/L (22-30); CHLORIDE 112 mmol/L (98-107)
[2020-06-11 11:43] LABS: ABSOLUTE LYMPHOCYTES# (MANUAL) 0.3 10^3/uL (0.5-4.7); ABSOLUTE MONOCYTES # (MANUAL) 0.2 10^3/uL (0.1-1.4); BASOPHILS % (MANUAL) 0 % (0-2); EOSINOPHILS % (MANUAL) 0 % (0-6); LYMPHOCYTES % (MANUAL) 2 % (13-45); MONOCYTES % (MANUAL) 1 % (3-13); SEGMENTED NEUTROPHILS % (MAN) 97 % (42-78); TOTAL CELLS COUNTED 100
[2020-06-11 11:44] LABS: ANISOCYTOSIS SLIGHT; BURR CELLS SLIGHT; OVALOCYTES SLIGHT; PLATELET COMMENT ADEQUATE; POIKILOCYTOSIS SLIGHT
[2020-06-11 11:52] LABS: ANION GAP 24 (5-19)
[2020-06-11 13:27] LABS: APPEARANCE,URINE SLIGHTLY-CLOUDY; BILIRUBIN,URINE NEGATIVE (NEGATIVE); COLOR,URINE YELLOW; GLUCOSE, URINE 50 mg/dL (NEGATIVE); KETONES,URINE 20 mg/dL (NEGATIVE); LEUKOCYTE ESTERASE,URINE SMALL (NEGATIVE); NITRITE,URINE NEGATIVE (NEGATIVE); PROTEIN,URINE 100 mg/dL (NEGATIVE); URINE SPECIFIC GRAVITY 1.012; UROBILINOGEN,URINE NEGATIVE mg/dL (<2.0)
[2020-06-11] MEDS ORDERED: NORMAL SALINE 100 ML with INSULIN REGULAR, HUMAN 100 UNIT IV PRN ×2 (14:48)
--- NOTE | 2020-06-11 15:32 | RADIOLOGY REPORT (SQ) ---
EXAM DESCRIPTION: CT ABD/PELVIS NO ORAL OR IV IMAGES COMPLETED DATE/TIME: 06/11/2020 3:19 pm REASON FOR STUDY: abd pain COMPARISON: 04/26/2020 TECHNIQUE: CT scan of the abdomen and pelvis performed without intravenous or oral contrast. Images reviewed with lung, soft tissue, and bone windows. Reconstructed coronal and sagittal MPR images revi ewed. All images stored on PACS. All CT scanners at this facility use dose modulation, iterative reconstruction, and/or weight based d osing when appropriate to reduce radiation dose to as low as reasonably achievable (ALARA). [facility]: Dose Right [facility]: CareDose [facility]: Dose Right [facility]: Teradose 4D [facility]: Smart [employer] RADIATION DOSE: CT Rad equipment meets quality standard of care and radiation dose reduction techniq ues were employed. CTDIvol: 6.0 mGy. DLP: 323 mGy-cm.mGy. LIMITATIONS: None. FINDINGS: LOWER CHEST: Trace pleural effusions. Hiatal hernia. NON-CONTRASTED LIVER, SPLEEN, ADRENALS: Old granulomatous disease in the spleen. PANCREAS: No masses. No peripancreatic inflammatory changes. GALLBLADDER: No identified stones by CT criteria. No inflammatory changes to suggest cholecystitis. RIGHT KIDNEY AND URETER: No suspicious masses. Assessment limited by lack of IV contrast. No signif icant calcifications. No hydronephrosis or hydroureter. LEFT KIDNEY AND URETER: No suspicious masses. Assessment limited by lack of IV contrast. No signifi cant calcifications. No hydronephrosis or hydroureter. AORTA AND RETROPERITONEUM: No aneurysm. No retroperitoneal masses or adenopathy. BOWEL AND PERITONEAL CAVITY: Diverticulosis. No obvious masses or inflammatory changes. No free flui d. APPENDIX: Normal. PELVIS, BLADDER, AND ABDOMINAL WALL:Nondependent gas in the urinary bladder presumably due to cathete rization. BONES: Nothing acute. Old compression fracture T9. Spondylolisthesis L4-5. OTHER: No other significant finding. IMPRESSION: Nondependent gas in the urinary bladder, presumably due to catheterization. Otherwise n o acute findings and no significant change. COMMENT: Quality ID # [id number]: Final reports with documentation of one or more dose reduction techniques (e.g., Automated exposure control, adjustment of the mA and/or kV according to patient size, use of iterative reconstruction technique) TECHNICAL DOCUMENTATION: JOB ID: [id number] [employer]- All Rights Reserved Reading location - IP/workstation name: [email or web address]
[2020-06-11] MEDS ORDERED: CEFTRIAXONE 1 GM/D5W RTU 1 GM/50 ML RTUPB IV ONE (15:47)
[2020-06-11 16:16] LABS: VENOUS BLOOD BASE EXCESS -10.2 mmol/L; VENOUS BLOOD HCO3 14.6 mmol/L (20-32); VENOUS BLOOD PCO2 30.3 mmHg (35-63); VENOUS BLOOD PH 7.3 (7.30-7.42)
[2020-06-11] MEDS ORDERED: SODIUM POLYSTYRENE SULFONATE 15 GM/60 ML PO ONE (16:17)
[2020-06-11] MEDS ORDERED: CALCIUM GLUCONATE 1000 MG/10 ML INJ IV ONE (16:18)
--- NOTE | 2020-06-11 16:24 | ER Document Report ---
ED General - General Chief Complaint: Nausea/Vomiting Stated Complaint: VOMITING BLOOD Time Seen by Provider: 06/11/20 13:02 Mode of Arrival: Medic Information source: Patient TRAVEL OUTSIDE OF THE [place] IN LAST 30 DAYS: No - HPI Notes: Patient presents with 2 days of nausea and vomiting. He denies any significant pain. No fevers or diarrhea. States he did have to have his esophagus "stretched" 1 month ago at an outlying hospital. He has had no further problems until 2 days ago. He denies any fevers or chills. He denies any rashes or urinary symptoms other than he states he has had some incontinence and now has to wear a "pull up". Patient states he had a stroke approximate 1 year ago that affected his right side. He states he currently lives in assisted living. He states he is also felt weak today and has had decreased appetite. - Related Data Allergies/Adverse Reactions: No Known Allergies Allergy (Unverified 06/25/18 06:51) Past Medical History - General Information source: Patient - Social History Smoking Status: Former Smoker Chew tobacco use (# tins/day): No Frequency of alcohol use: None Drug Abuse: None Family History: Reviewed & Not Pertinent Patient has homicidal ideation: No - Past Medical History Cardiac Medical History: Reports: Hx Hypertension - 2016 Denies: Hx Congestive Heart Failure, Hx Heart Attack Pulmonary Medical History: Denies: Hx Asthma, Hx Bronchitis, Hx COPD, Hx Pneumonia, Hx Tuberculosis Neurological Medical History: Reports: Hx Cerebrovascular Accident - 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 Denies: Hx Seizures, Hx Parkinson's Disease Endocrine Medical History: Reports: Hx Diabetes Mellitus Type 2 Renal/ Medical History: Denies: Hx Benign Prostatic Hyperplasia, Hx End Stage Renal Disease, Hx Kidney Stones, Hx Peritoneal Dialysis GI Medical History: Denies: Hx Cirrhosis, Hx Gastroesophageal Reflux Disease, Hx Ulcer Musculoskeletal Medical History: Denies Hx Arthritis, Denies Hx Multiple Sclerosis Psychiatric Medical History: Denies: Hx Bipolar Disorder, Hx Depression, Hx Schizophrenia Past Surgical History: Reports: Other - Left eye surgery - Immunizations Hx Diphtheria, Pertussis, Tetanus Vaccination: Yes Review of Systems - Review of Systems Constitutional: Malaise, Weakness. denies: Chills, Fever Cardiovascular: denies: Chest pain, Palpitations Respiratory: denies: Cough, Short of breath -: Yes All other systems reviewed and negative Physical Exam - Vital signs Vitals: Temp 98.1 F 06/11/20 10:20 Interpretation: Normal - General General appearance: Appears well, Alert - HEENT Head: Normocephalic, Atraumatic Eyes: Normal Pupils: PERRL - Respiratory Respiratory status: No respiratory distress Chest status: Nontender Breath sounds: Normal Chest palpation: Normal - Cardiovascular Rhythm: Tachycardia Heart sounds: Normal auscultation Murmur: No - Abdominal Inspection: Normal Distension: No distension Bowel sounds: Normal Tenderness: Nontender Organomegaly: No organomegaly - Back Back: Normal, Nontender - Extremities General upper extremity: Normal inspection, Nontender, Normal color, Normal ROM, Normal temperature General lower extremity: Normal inspection, Nontender, Normal color, Normal ROM, Normal temperature, Normal weight bearing. No: Marc's sign - Neurological Neuro grossly intact: Yes Cognition: Normal Orientation: AAOx4 [place] Coma Scale Eye Opening: Spontaneous [place] Coma Scale Verbal: Oriented [place] Coma Scale Motor: Obeys Commands Augie Coma Scale Total: 15 Speech: Normal Motor strength normal: LUE, RUE, LLE, RLE Sensory: Normal - Psychological Associated symptoms: Normal affect, Normal mood - Skin Skin Temperature: Warm Skin Moisture: Dry Skin Color: Pale Course - Re-evaluation Re-evalutation: 06/11/20 16:21 Patient presents complaining of nausea with vomiting. Patient has a somewhat confusing picture. He has an elevated white blood cell count, an infected urine, some air in the bladder, as well as tachycardia. This all may be early signs of urosepsis. It is unclear why the patient is also having vomiting or if this is related to his recent procedure. In addition patient appears significantly dehydrated from the vomiting and has suffered an acute kidney injury and has some mildly altered electrolytes including an elevated potassium. Patient does have ketones and smells of ketosis in the room. It is possible patient is also in early DKA. Therefore patient will be treated with insulin, fluids, and antibiotics as well as calcium and Kayexalate. - Vital Signs Vital signs: Temp Pulse Resp BP Pulse Ox 98.0 F 77 21 H 139/90 H 97 06/11/20 10:40 06/11/20 10:40 06/11/20 13:01 06/11/20 13:00 11/09/20 13:01 - Laboratory Result Diagrams: 06/11/20 10:08 06/11/20 10:08 Laboratory results interpreted by me: 06/11/20 06/11/20 06/11/20 10:08 10:08 13:00 WBC 15.3 H RBC 4.06 L Hgb 11.4 L Hct 35.2 L RDW 16.4 H Seg Neuts % (Manual) 97 H Lymphocytes % (Manual) 2 L Monocytes % (Manual) 1 L Abs Neuts (Manual) 14.8 H Abs Lymphs (Manual) 0.3 L VBG pCO2 VBG HCO3 Sodium 148.8 H Potassium 5.9 H Chloride 112 H Carbon Dioxide 13 L Anion Gap 24 H BUN 58 H Creatinine 3.48 H Est GFR ( Amer) 22 L Est GFR (MDRD) Non-Af 18 L Glucose 233 H Urine Protein 100 H Urine Glucose (UA) 50 H Urine Ketones 20 H Urine Blood SMALL H Ur Leukocyte Esterase SMALL H 06/11/20 15:50 WBC RBC Hgb Hct RDW Seg Neuts % (Manual) Lymphocytes % (Manual) Monocytes % (Manual) Abs Neuts (Manual) Abs Lymphs (Manual) VBG pCO2 30.3 L VBG HCO3 14.6 L Sodium Potassium Chloride Carbon Dioxide Anion Gap BUN Creatinine Est GFR ( Amer) Est GFR (MDRD) Non-Af Glucose Urine Protein Urine Glucose (UA) Urine Ketones Urine Blood Ur Leukocyte Esterase - Diagnostic Test Radiology reviewed: Image reviewed, Reports reviewed Critical Care Note - Critical Care Note Total time excluding time spent on procedures (mins): 50 Comments: Approximate 50 minutes of critical care time were spent on this patient with urosepsis, hyperkalemia, and acute kidney injury. This time was spent doing multiple reassessments. Is spent talking with multiple consultants. Spent reviewing old records. I spent reviewing laboratory values and images. Discharge - Discharge Clinical Impression: Hyperkalemia, UGIB (upper gastrointestinal bleed), Dehydration Diabetic ketoacidosis Qualifiers: Diabetes mellitus type: type 1 Diabetes mellitus complication detail: without coma Qualified Code(s): E10.10 - Type 1 diabetes mellitus with ketoacidosis without coma Sepsis Qualifiers: Sepsis type: sepsis due to unspecified organism Sepsis acute organ dysfunction status: with acute organ dysfunction Severe sepsis acute organ dysfunction type: acute renal failure Acute renal failure type: unspecified Severe sepsis shock status: without septic shock Qualified Code(s): A41.9 - Sepsis, unspecified organism; R65.20 - Severe sepsis without septic shock; N17.9 - Acute kidney failure, unspecified Condition: Serious Disposition: ADMITTED INPATIENT Admitting Provider: Micki (Hospitalist) Unit Admitted: Telemetry
[2020-06-11] MEDS ORDERED: INSULIN REG, HUMAN 100 UNIT/ML 3 ML VIAL (PYX) ONE (16:26)
[2020-06-11] MEDS ORDERED: METOCLOPRAMIDE HCL INJ/PF 10 MG/2 ML SDV IV ONE (16:49)
[2020-06-11] MEDS ORDERED: DEXTROSE 50%-WATER SYRINGE 25 GM/50 ML DOSE IV PRN (18:30)
[2020-06-11] MEDS ORDERED: DEXTROSE 40% GEL 15 GM TUBE PO PRN (18:30)
[2020-06-11] MEDS ORDERED: DEXTROSE 50%-WATER SYRINGE 12.5 GM/25 ML DOSE IV PRN (18:30)
[2020-06-11] MEDS ORDERED: GLUCAGON,HUMAN RECOMB 1 MG INJ IM PRN (18:30)
[2020-06-11] MEDS ORDERED: DEXTROSE 40% GEL 15 GM TUBE X 2 PO PRN (18:30)
[2020-06-11] MEDS ORDERED: ONDANSETRON HCL INJ/PF 4 MG/2 ML SDV IV ONE (18:37)
[2020-06-11] MEDS ORDERED: ACETAMINOPHEN 325 MG TABLET PO PRN (18:52)
[2020-06-11] MEDS ORDERED: ONDANSETRON 4 MG TAB.RAPDIS PO PRN (18:52)
--- NOTE | 2020-06-11 19:34 | PDOC H&P ---
History of Present Illness Admission Date/PCP: 06/11/20 16:32 History of Present Illness: CHRISSY NANCE is a 60 year old male past medical history significant for esophageal stricture status post ballooning 3 months ago, recurrent upper GI bleeds, HTN, T2DM, prior stroke with right-sided weakness who presents with a 2- day history of progressive severe nausea/vomiting/hematemesis which patient states is the exact same presentation of his admission in April here. Patient underwent an upper GI endoscopy on previous admission that did not show any bleeding sources. GI and surgery were not made aware of the patient's arrival. I have consulted both services who have agreed to follow the patient inpatient. Patient hemoglobin is above 11 on admission. Patient also has a gap acidosis with ketones in his urine, likely due to starvation ketosis from not eating or drinking for the past few days. He also has an ESMER on top of chronic kidney disease. Suspect prerenal etiology. CT of the patient's abdomen/pelvis showed air in his bladder but otherwise no acute findings. ED start the patient on insulin drip, his blood sugar is 145 and I have instructed the nurse to stop this. He will have sliding scale insulin instead. Patient potassium on admission was 5.9. No EKG was done but I have ordered this. I have also asked the ED to treat the elevated potassium with IV calcium and IV fluids, then recheck BMP. Patient was also given Kayexalate by ED. Patient started on ceftriaxone for UTI. Urine culture and blood culture sent. I spoke with general surgery and they requested the patient get a rapid Covid test and have the blood bank made aware that the patient may need blood overnight. They will be available overnight if the patient needs them. Past Medical History Cardiac Medical History: Reports: Hypertension - 2016 Denies: Congestive Heart Failure, Myocardial Infarction Pulmonary Medical History: Denies: Asthma, Bronchitis, Chronic Obstructive Pulmonary Disease (COPD), Pneumonia, Tuberculosis Neurological Medical History: Denies: Seizures Endocrine Medical History: Reports: Diabetes Mellitus Type 2 Renal/ Medical History: Denies: End Stage Renal Disease GI Medical History: Denies: Cirrhosis, Gastroesophageal Reflux Disease Musculoskeltal Medical History: Denies: Arthritis Psychiatric Medical History: Denies: Bipolar Disorder, Depression Hematology: Denies: Anemia, Bleeding Tendencies Past Surgical History Past Surgical History: Reports: Other - Left eye surgery Social History Information Source: Patient, Emergency Med Personnel Smoking Status: Former Smoker Electronic Cigarette use?: No Hx Recreational Drug Use: No Hx Prescription Drug Abuse: No - Advance Directive Resuscitation Status: Full Code Surrogate healthcare decision maker:: Admitting diagnosis: Upper GI bleed All aspects of code status discussed with patient/POA including cardioversion, chest compressions, and intubation and the patient/POA indicated they wish to be full code MPOA is designated as: SonChrissy Time spent: Greater than 16 minutes Family History Family History: Reviewed & Not Pertinent, DM, Malignancy Parental Family History Reviewed: Yes Children Family History Reviewed: Yes Sibling(s) Family History Reviewed.: Yes Medication/Allergy Home Medications: Amlodipine Besylate [Norvasc 10 mg Tablet] 10 mg PO DAILY 06/25/18 Metoprolol Tartrate [Lopressor 25 mg Tablet] 25 mg PO Q12 tablet 06/30/18 Gabapentin [Neurontin 300 mg Capsule] 300 mg PO BID 04/26/20 Acetaminophen [Tylenol] 650 mg PO Q4HP PRN 06/11/20 Ferrous Sulfate [Ferosul] 325 mg PO DAILY 06/11/20 Glimepiride [Amaryl 1 mg Tablet] 1 mg PO DAILY 06/11/20 Lisinopril [Prinivil 10 mg Tablet] 10 mg PO DAILY 06/11/20 Loperamide HCl [Imodium A-D] 2 mg PO ASDIR PRN 06/11/20 Allergies/Adverse Reactions: No Known Allergies Allergy (Unverified 06/25/18 06:51) Review of Systems All systems: reviewed and no additional remarkable complaints except as stated - Per HPI otherwise negative Physical Exam Vital Signs: Temp Pulse Resp BP Pulse Ox 98.0 F 77 16 149/90 H 97 06/11/20 10:40 06/11/20 10:40 06/11/20 17:00 06/11/20 15:00 06/11/20 17:00 Intake & Output 06/10/20 06/11/20 06/12/20 06:59 06:59 06:59 Intake Total 1000 Balance 1000 Weight 61.235 kg Exam: General appearance: PRESENT: no acute distress, chronically ill-appearing thin white male Head exam: PRESENT: atraumatic, normocephalic Eye exam: PRESENT: conjunctiva pink. ABSENT: scleral icterus Mouth exam: PRESENT: moist Respiratory exam: PRESENT: clear to auscultation jerardo. ABSENT: rales, rhonchi, wheezes Cardiovascular exam: PRESENT: RRR. ABSENT: diastolic murmur, rubs, systolic murmur GI/Abdominal exam: PRESENT: normal bowel sounds, soft. ABSENT: distended, guarding, mass, organolmegaly, rebound, tenderness Neurological exam: PRESENT: alert, awake, oriented to person, oriented to place, oriented to time, oriented to situation Psychiatric exam: PRESENT: appropriate affect, normal mood Skin exam: PRESENT: dry, intact, warm Results Laboratory Results: 06/11/20 10:08 06/11/20 10:08 06/11/20 06/11/20 06/11/20 10:08 10:08 11:30 WBC 15.3 H RBC 4.06 L Hgb 11.4 L Hct 35.2 L MCV 87 MCH 28.0 MCHC 32.3 RDW 16.4 H Plt Count 249 Seg Neutrophils % Not Reportable VBG pH VBG pCO2 VBG HCO3 VBG Base Excess Sodium 148.8 H Potassium 5.9 H Chloride 112 H Carbon Dioxide 13 L Anion Gap 24 H BUN 58 H Creatinine 3.48 H Est GFR ( Amer) 22 L Glucose 233 H Lactic Acid Calcium 9.9 Total Bilirubin 0.4 AST 18 Alkaline Phosphatase 109 Total Protein 7.6 Albumin 4.7 Urine Color Urine Appearance Urine pH Ur Specific [place] Urine Protein Urine Glucose (UA) Urine Ketones Urine Blood Urine Nitrite Ur Leukocyte Esterase Urine WBC (Auto) Urine RBC (Auto) Blood Type O POSITIVE Antibody Screen NEGATIVE 06/11/20 06/11/20 06/11/20 13:00 15:50 18:30 WBC RBC Hgb Hct MCV MCH MCHC RDW Plt Count Seg Neutrophils % VBG pH 7.30 VBG pCO2 30.3 L VBG HCO3 14.6 L VBG Base Excess -10.2 Sodium Potassium Chloride Carbon Dioxide Anion Gap BUN Creatinine Est GFR ( Amer) Glucose Lactic Acid 0.7 Calcium Total Bilirubin AST Alkaline Phosphatase Total Protein Albumin Urine Color YELLOW Urine Appearance SLIGHTLY-CLOUDY Urine pH 5.0 Ur Specific [place] 1.012 Urine Protein 100 H Urine Glucose (UA) 50 H Urine Ketones 20 H Urine Blood SMALL H Urine Nitrite NEGATIVE Ur Leukocyte Esterase SMALL H Urine WBC (Auto) 19 Urine RBC (Auto) 1 Blood Type Antibody Screen Impressions: Abdomen/Pelvis CT 06/11/20 14:49 IMPRESSION: Nondependent gas in the urinary bladder, presumably due to catheterization. Otherwise no acute findings and no significant change. Assessment and Plan - Diagnosis (1) Gastrointestinal bleeding, upper Is this a current diagnosis for this admission?: Yes Plan: 2-day duration hematemesis with coffee grounds and red blood Previous admission in April for this, upper GI endoscopy did not show any acute bleed GI consulted General surgery consulted Trend CBC Rapid Covid requested by general surgery in case patient needs procedure Patient agrees to getting blood if needed Hemoglobin greater than 11 on admission (2) UTI (urinary tract infection) Is this a current diagnosis for this admission?: Yes Plan: Present on admission Urine culture UA infected Ceftriaxone (3) Acute kidney injury superimposed on CKD Is this a current diagnosis for this admission?: Yes Plan: Prerenal due to vomiting and dehydration IV fluids Trend BMP (4) Dehydration Is this a current diagnosis for this admission?: Yes Plan: As above (5) Diabetic ketoacidosis Qualifiers: Diabetes mellitus type: type 1 Diabetes mellitus complication detail: without coma Qualified Code(s): E10.10 - Type 1 diabetes mellitus with ketoacidosis without coma Is this a current diagnosis for this admission?: Yes Plan: Possible DKA versus starvation ketosis ED start on insulin drip, this has been stopped his blood sugars in the 130s currently Sliding scale insulin Accu-Cheks (6) Hyperkalemia Is this a current diagnosis for this admission?: Yes Plan: IV calcium, Kayexalate, insulin Trend BMP EKG showed possible subtle peaked T waves Get repeat EKG after insulin infusion is stopped (7) Sepsis Qualifiers: Sepsis type: sepsis due to unspecified organism Sepsis acute organ dysfunction status: with acute organ dysfunction Severe sepsis acute organ dysfunction type: acute renal failure Acute renal failure type: unspecified Severe sepsis shock status: without septic shock Qualified Code(s): A41.9 - Sepsis, unspecified organism; R65.20 - Severe sepsis without septic shock; N17.9 - Acute kidney failure, unspecified Is this a current diagnosis for this admission?: Yes Plan: Due to UTI Antibiotics and cultures as above (8) HTN (hypertension) Qualifiers: Hypertension type: essential hypertension Qualified Code(s): I10 - Essential (primary) hypertension Is this a current diagnosis for this admission?: Yes (9) History of CVA (cerebrovascular accident) Is this a current diagnosis for this admission?: Yes Plan: Chronic right-sided weakness Continue home medications - Time Time Spent with patient: 35 or more minutes Medications reviewed and adjusted accordingly: Yes Anticipated Discharge Disposition: Home, Self Care Anticipated Discharge Timeframe: within 72 hours - Inpatient Certification Based on my medical assessment, after consideration of the patient's comorbidities, presenting symptoms, or acuity I expect that the services needed warrant INPATIENT care.: Yes I certify that my determination is in accordance with my understanding of Medicare's requirements for reasonable and necessary INPATIENT services [42 CFR 412.3e].: Yes Medical Necessity: Significant Comorbidiites Make Outpatient Treatment Too Risky, Need Close Monitoring Due to Risk of Patient Decompensation, Need For IV Fluids, Need for IV Antibiotics, Risk of Complication if Not Cared For in Hospital, Risk of Diagnosis Which Will Require Inpatient Eval/Care/Monitoring
[2020-06-11 19:43] LABS: ANION GAP 15 (5-19); BLOOD UREA NITROGEN 57 mg/dL (7-20); CALCIUM 9.3 mg/dL (8.4-10.2); CARBON DIOXIDE 17 mmol/L (22-30); CHLORIDE 118 mmol/L (98-107); GLUCOSE 140 mg/dL (75-110); POTASSIUM 5.2 mmol/L (3.6-5.0)
[2020-06-11] MEDS: NORMAL SALINE 1000 ML 1,000 ML IV PRN (20:17)
--- NOTE | 2020-06-11 21:43 | PDOC CONSULTATION ---
Consultation Consult Date: 06/11/20 Attending physician:: MONIE CARDONA Provider Consulted: KELLIE WATTS Consult reason:: GI bleed History of Present Illness Admission Date/PCP: 06/11/20 16:32 History of Present Illness: CHRISSY NANCE is a 60 year old male Presents emergency department via ground rescue with a several day history of abdominal pain, nausea vomiting dehydration and reports of hematemesis. She is a poor historian. Patient was admitted to the hospital service with surgery consulting because of GI bleed. Patient was found to be in DKA, early sepsis, and chronic renal insufficiency. Patient was hospitalized 1 month ago for similar symptoms, had an EGD by Dr. William Ford for GI bleed and no pathologic findings were identified. Apparently in the interim, according to patient, he went to [facility] and an esophageal stricture dilated although no mention of a stricture made at the time of the [facility] 04/26/2020 EGD. Patient has had no further hemoptysis. He remains hemodynamically stable with an elevation in his hemoglobin to 11.4. Past Medical History Cardiac Medical History: Reports: Hypertension - 2016 Denies: Congestive Heart Failure, Myocardial Infarction Pulmonary Medical History: Denies: Asthma, Bronchitis, Chronic Obstructive Pulmonary Disease (COPD), Pneumonia, Tuberculosis Neurological Medical History: Denies: Seizures Endocrine Medical History: Reports: Diabetes Mellitus Type 2 Renal/ Medical History: Denies: End Stage Renal Disease GI Medical History: Denies: Cirrhosis, Gastroesophageal Reflux Disease Musculoskeltal Medical History: Denies: Arthritis Psychiatric Medical History: Denies: Bipolar Disorder, Depression Hematology: Denies: Anemia, Bleeding Tendencies Past Surgical History Past Surgical History: Multiple upper and lower endoscopies Past Surgical History: Reports: Other - Left eye surgery Social History Smoking Status: Former Smoker Electronic Cigarette use?: No Hx Recreational Drug Use: No Hx Prescription Drug Abuse: No - Advance Directive Resuscitation Status: Full Code Family History Family History: None, Reviewed & Not Pertinent, DM, Malignancy Parental Family History Reviewed: No Children Family History Reviewed: No Sibling(s) Family History Reviewed.: No Medication/Allergy Home Medications: Amlodipine Besylate [Norvasc 10 mg Tablet] 10 mg PO DAILY 06/25/18 Metoprolol Tartrate [Lopressor 25 mg Tablet] 25 mg PO Q12 tablet 06/30/18 Gabapentin [Neurontin 300 mg Capsule] 300 mg PO BID 04/26/20 Acetaminophen [Tylenol] 650 mg PO Q4HP PRN 06/11/20 Ferrous Sulfate [Ferosul] 325 mg PO DAILY 06/11/20 Glimepiride [Amaryl 1 mg Tablet] 1 mg PO DAILY 06/11/20 Lisinopril [Prinivil 10 mg Tablet] 10 mg PO DAILY 06/11/20 Loperamide HCl [Imodium A-D] 2 mg PO ASDIR PRN 06/11/20 Allergies/Adverse Reactions: No Known Allergies Allergy (Unverified 06/25/18 06:51) Review of Systems Constitutional: PRESENT: as per HPI Eyes: PRESENT: other - Patient has a disconjugate gaze. ABSENT: visual disturbances Cardiovascular: ABSENT: chest pain, dyspnea on exertion, edema, orthropnea, palpitations Gastrointestinal: PRESENT: as per HPI Physical Exam Vital Signs: Temp Pulse Resp BP Pulse Ox 98.5 F 107 H 16 112/63 98 06/11/20 19:02 06/11/20 19:02 06/11/20 19:02 06/11/20 19:02 06/11/20 19:02 Intake & Output 06/10/20 06/11/20 06/12/20 06:59 06:59 06:59 Intake Total 1000 Balance 1000 Weight 58.2 kg General appearance: PRESENT: no acute distress Head exam: PRESENT: normocephalic Eye exam: PRESENT: other - Disconjugate gaze Mouth exam: PRESENT: dry mucosa Neck exam: PRESENT: full ROM Cardiovascular exam: PRESENT: RRR GI/Abdominal exam: PRESENT: soft - Soft, nontender. No hernias Rectal exam: PRESENT: deferred Musculoskeletal exam: PRESENT: other - Patient with his right upper and right lower extremities Neurological exam: PRESENT: oriented to person, oriented to place, oriented to time, oriented to situation Results Laboratory Results: 06/11/20 10:08 06/11/20 18:30 06/11/20 06/11/20 06/11/20 10:08 10:08 11:30 WBC 15.3 H RBC 4.06 L Hgb 11.4 L Hct 35.2 L MCV 87 MCH 28.0 MCHC 32.3 RDW 16.4 H Plt Count 249 Seg Neutrophils % Not Reportable VBG pH VBG pCO2 VBG HCO3 VBG Base Excess Sodium 148.8 H Potassium 5.9 H Chloride 112 H Carbon Dioxide 13 L Anion Gap 24 H BUN 58 H Creatinine 3.48 H Est GFR ( Amer) 22 L Glucose 233 H Lactic Acid Calcium 9.9 Total Bilirubin 0.4 AST 18 Alkaline Phosphatase 109 Total Protein 7.6 Albumin 4.7 Urine Color Urine Appearance Urine pH Ur Specific [place] Urine Protein Urine Glucose (UA) Urine Ketones Urine Blood Urine Nitrite Ur Leukocyte Esterase Urine WBC (Auto) Urine RBC (Auto) Blood Type O POSITIVE Antibody Screen NEGATIVE 06/11/20 06/11/20 06/11/20 13:00 15:50 18:30 WBC RBC Hgb Hct MCV MCH MCHC RDW Plt Count Seg Neutrophils % VBG pH 7.30 VBG pCO2 30.3 L VBG HCO3 14.6 L VBG Base Excess -10.2 Sodium Potassium Chloride Carbon Dioxide Anion Gap BUN Creatinine Est GFR ( Amer) Glucose Lactic Acid 0.7 Calcium Total Bilirubin AST Alkaline Phosphatase Total Protein Albumin Urine Color YELLOW Urine Appearance SLIGHTLY-CLOUDY Urine pH 5.0 Ur Specific [place] 1.012 Urine Protein 100 H Urine Glucose (UA) 50 H Urine Ketones 20 H Urine Blood SMALL H Urine Nitrite NEGATIVE Ur Leukocyte Esterase SMALL H Urine WBC (Auto) 19 Urine RBC (Auto) 1 Blood Type Antibody Screen 06/11/20 18:30 WBC RBC Hgb Hct MCV MCH MCHC RDW Plt Count Seg Neutrophils % VBG pH VBG pCO2 VBG HCO3 VBG Base Excess Sodium 149.5 H Potassium 5.2 H Chloride 118 H Carbon Dioxide 17 L Anion Gap 15 BUN 57 H Creatinine 2.87 H Est GFR ( Amer) 27 L Glucose 140 H Lactic Acid Calcium 9.3 Total Bilirubin AST Alkaline Phosphatase Total Protein Albumin Urine Color Urine Appearance Urine pH Ur Specific [place] Urine Protein Urine Glucose (UA) Urine Ketones Urine Blood Urine Nitrite Ur Leukocyte Esterase Urine WBC (Auto) Urine RBC (Auto) Blood Type Antibody Screen Impressions: Abdomen/Pelvis CT 06/11/20 14:49 IMPRESSION: Nondependent gas in the urinary bladder, presumably due to catheterization. Otherwise no acute findings and no significant change. Assessment & Plan - Diagnosis (1) Gastrointestinal bleeding, upper Is this a current diagnosis for this admission?: Yes Plan: Impression: Self-reported episodes of hemoptysis, unwitnessed; stable; elevation in hemoglobin (11.4) compared to last month. No evidence of acute GI bleeding at this time. Patient is a poor historian, so reliability of HPI questionable Recommendations: 1. Supportive therapy as you are doing 2. No indication for repeat endoscopy as this was just performed twice in the past month with no pathologic findings 3. Surgery will sign off; please reconsult if clinically indicated (2) Acute kidney injury superimposed on CKD Is this a current diagnosis for this admission?: Yes (3) Diabetic ketoacidosis Qualifiers: Diabetes mellitus type: type 1 Diabetes mellitus complication detail: without coma Qualified Code(s): E10.10 - Type 1 diabetes mellitus with ketoacidosis without coma Is this a current diagnosis for this admission?: Yes Plan: Likely related to dehydration, early sepsis (4) History of CVA (cerebrovascular accident) Is this a current diagnosis for this admission?: Yes Plan: With residual right hemiparesis - Time Time Spent: 30 to 50 Minutes Smoking Cessation Education: 3 to 10 minutes Medications reviewed and adjusted accordingly: Yes Anticipated discharge: Home Anticipated DC Timeframe: within 48 hours
[2020-06-11] MEDS: HEPARIN SOD (PORCINE) 5,000 UNIT/ML 1 ML VIAL SUBCUT SCH (21:56)
[2020-06-11] MEDS: INSULIN LISPRO 100 UNIT/ML 3 ML VIAL SUBCUT SCH (21:57)
[2020-06-11] MEDS: METOPROLOL TARTRATE 25 MG TABLET PO SCH (21:59)
--- NOTE | 2020-06-11 23:01 | EKG REPORT ---
SEVERITY:- ABNORMAL ECG - SINUS TACHYCARDIA WITH APCs RIGHT BUNDLE BRANCH BLOCK : Confirmed by: Taryn Epperson 11-Jun-2020 23:00:06
[2020-06-11 23:53] LABS: ABSOLUTE LYMPHOCYTES (AUTO) 0.9 10^3/uL (0.5-4.7); ABSOLUTE MONOCYTES (AUTO) 1.1 10^3/uL (0.1-1.4); ABSOLUTE NEUT (AUTO) 14.1 10^3/uL (1.7-8.2); BASOPHILS % (AUTO) 0.1 % (0-2); HEMATOCRIT 26.8 % (37.9-51.0); LYMPHOCYTES % (AUTO) 5.5 % (13-45); MEAN CORPUSCULAR HEMOGLOBIN 29.3 pg (27.0-33.4); MEAN CORPUSCULAR HGB CONC 34.3 g/dL (32.0-36.0); MEAN CORPUSCULAR VOLUME 86 fl (80-97); MONOCYTES % (AUTO) 6.8 % (3-13); PLATELET COUNT 222 10^3/uL (150-450); RED BLOOD COUNT 3.13 10^6/uL (4.35-5.55); RED CELL DISTRIBUTION WIDTH 16.3 % (11.5-14.0); SEGMENTED NEUTROPHILS % (AUTO) 87.6 % (42-78); TOTAL CELLS COUNTED % (AUTO) 100 %; WHITE BLOOD COUNT 16.1 10^3/uL (4.0-10.5)
[2020-06-11 23:54] LABS: HEMOGLOBIN 9.2 g/dL (13.5-17.0)
[2020-06-12] MEDS: HEPARIN SOD (PORCINE) 5,000 UNIT/ML 1 ML VIAL SUBCUT SCH ×3 (05:56→21:05)
[2020-06-12 07:01] LABS: ABSOLUTE LYMPHOCYTES (AUTO) 1.2 10^3/uL (0.5-4.7); ABSOLUTE MONOCYTES (AUTO) 1.1 10^3/uL (0.1-1.4); ABSOLUTE NEUT (AUTO) 12.8 10^3/uL (1.7-8.2); BASOPHILS % (AUTO) 0.2 % (0-2); HEMATOCRIT 28.9 % (37.9-51.0); HEMOGLOBIN 9.7 g/dL (13.5-17.0); MEAN CORPUSCULAR HEMOGLOBIN 28.7 pg (27.0-33.4); MEAN CORPUSCULAR HGB CONC 33.6 g/dL (32.0-36.0); MEAN CORPUSCULAR VOLUME 86 fl (80-97); MONOCYTES % (AUTO) 7.1 % (3-13); PLATELET COUNT 202 10^3/uL (150-450); RED BLOOD COUNT 3.38 10^6/uL (4.35-5.55); RED CELL DISTRIBUTION WIDTH 16.3 % (11.5-14.0); SEGMENTED NEUTROPHILS % (AUTO) 84.7 % (42-78); TOTAL CELLS COUNTED % (AUTO) 100 %; WHITE BLOOD COUNT 15.2 10^3/uL (4.0-10.5)
[2020-06-12 07:23] LABS: ANION GAP 12 (5-19); BLOOD UREA NITROGEN 57 mg/dL (7-20); CARBON DIOXIDE 17 mmol/L (22-30); CHLORIDE 118 mmol/L (98-107); GLUCOSE 149 mg/dL (75-110); PHOSPHORUS 3.9 mg/dL (2.5-4.5); POTASSIUM 4.8 mmol/L (3.6-5.0)
--- NOTE | 2020-06-12 07:51 | Progress Note ---
Provider Note Provider Note: patient has already been seen by the surgery service per their recommendations.
[2020-06-12] MEDS: INSULIN LISPRO 100 UNIT/ML 3 ML VIAL SUBCUT SCH ×4 (07:58→21:16)
[2020-06-12] MEDS: GABAPENTIN 300 MG CAPSULE PO SCH (10:04)
[2020-06-12] MEDS: METOPROLOL TARTRATE 25 MG TABLET PO SCH ×2 (10:04→21:06)
[2020-06-12] MEDS: DOCUSATE SODIUM 100 MG CAPSULE PO SCH (10:04)
[2020-06-12] MEDS: CEFTRIAXONE 2 GM/D5W RTU 2 GM/50 ML RTUPB IV SCH (10:37)
--- NOTE | 2020-06-12 16:08 | PDOC PROGRESS REPORT ---
Subjective Date:: 06/12/20 Subjective:: CHRISSY NANCE is a 60 year old male past medical history significant for esophag eal stricture status post ballooning 3 months ago, recurrent upper GI bleeds, HTN, T2DM, prior stroke with right-sided weakness who presents with a 2-day history of progressive severe nausea/vomiting/hematemesis which patient states is the exact same presentation of his admission in April here. Patient underwent an upper GI endoscopy on previous admission that did not show any bleeding sources. GI and surgery were not made aware of the patient's arrival. I have consulted both services who have agreed to follow the patient inpatient. Patient hemoglobin is above 11 on admission. Patient also has a gap acidosis with ketones in his urine, likely due to starvation ketosis from not eating or drinking for the past few days. He also has an ESMER on top of chronic kidney disease. Suspect prerenal etiology. CT of the patient's abdomen/pelvis showed air in his bladder but otherwise no acute findings. ED start the patient on insulin drip, his blood sugar is 145 and I have instructed the nurse to stop this. He will have sliding scale insulin instead. Patient potassium on admission was 5.9. No EKG was done but I have ordered this. I have also asked the ED to treat the elevated potassium with IV calcium and IV fluids, then recheck BMP. Patient was also given Kayexalate by ED. Patient started on ceftriaxone for UTI. Urine culture and blood culture sent. I spoke with general surgery and they requested the patient get a rapid Covid test and have the blood bank made aware that the patient may need blood overnight. They will be available overnight if the patient needs them. 06/12/20 He was seen and examined at bedside. He denies any further episodes of hematemesis, nausea vomiting. Denies any abdominal pain, chest pain, shortness of breath. Hemoglobin 9.7. Surgery was consulted during this admission and since she has had any further episodes of hematemesis, with stable vital signs and normal hemoglobin no urgent endoscopy needed. He is currently being treated for urinary tract infection with ceftriaxone Reason For Visit: SEPSIS,UTI,ESMER Physical Exam Vital Signs: Temp Pulse Resp BP Pulse Ox 98.8 F 80 18 151/84 H 98 06/12/20 10:00 06/12/20 13:03 06/12/20 13:03 06/12/20 13:03 06/12/20 13:03 Intake & Output 06/11/20 06/12/20 06/13/20 06:59 06:59 06:59 Intake Total 1460 Output Total 1000 500 Balance 460 -500 Weight 58.2 kg General appearance: PRESENT: no acute distress, cooperative Head exam: PRESENT: atraumatic, normocephalic Eye exam: PRESENT: EOMI, PERRLA Mouth exam: PRESENT: moist Neck exam: PRESENT: full ROM Respiratory exam: PRESENT: clear to auscultation jerardo, symmetrical, unlabored Pulses: PRESENT: +2 pedal pulses bilateral GI/Abdominal exam: PRESENT: normal bowel sounds, soft. ABSENT: rebound, tende rness Rectal exam: ABSENT: bloody stool Extremities exam: PRESENT: full ROM Musculoskeletal exam: PRESENT: full ROM Neurological exam: PRESENT: alert, awake, oriented to person, oriented to place, oriented to time Skin exam: PRESENT: normal color Results Laboratory Results: 06/12/20 06:34 06/12/20 06:34 06/11/20 06/11/20 06/11/20 15:50 18:30 18:30 WBC RBC Hgb Hct MCV MCH MCHC RDW Plt Count Seg Neutrophils % VBG pH 7.30 VBG pCO2 30.3 L VBG HCO3 14.6 L VBG Base Excess -10.2 Sodium 149.5 H Potassium 5.2 H Chloride 118 H Carbon Dioxide 17 L Anion Gap 15 BUN 57 H Creatinine 2.87 H Est GFR ( Amer) 27 L Glucose 140 H Lactic Acid 0.7 Calcium 9.3 Phosphorus Magnesium Ammonia TSH 06/11/20 06/12/20 06/12/20 23:41 06:34 06:34 WBC 16.1 H 15.2 H RBC 3.13 L 3.38 L Hgb 9.2 L D 9.7 L Hct 26.8 L 28.9 L MCV 86 86 MCH 29.3 28.7 MCHC 34.3 33.6 RDW 16.3 H 16.3 H Plt Count 222 202 Seg Neutrophils % 87.6 H 84.7 H VBG pH VBG pCO2 VBG HCO3 VBG Base Excess Sodium 146.6 H Potassium 4.8 Chloride 118 H Carbon Dioxide 17 L Anion Gap 12 BUN 57 H Creatinine 2.53 H Est GFR ( Amer) 32 L Glucose 149 H Lactic Acid Calcium 9.0 Phosphorus 3.9 Magnesium 2.1 Ammonia TSH 06/12/20 06/12/20 06:34 06:34 WBC RBC Hgb Hct MCV MCH MCHC RDW Plt Count Seg Neutrophils % VBG pH VBG pCO2 VBG HCO3 VBG Base Excess Sodium Potassium Chloride Carbon Dioxide Anion Gap BUN Creatinine Est GFR ( Amer) Glucose Lactic Acid Calcium Phosphorus Magnesium Ammonia < 8.7 L TSH 0.48 Impressions: Abdomen/Pelvis CT 06/11/20 14:49 IMPRESSION: Nondependent gas in the urinary bladder, presumably due to catheterization. Otherwise no acute findings and no significant change. Assessment and Plan - Diagnosis (1) Gastrointestinal bleeding, upper Is this a current diagnosis for this admission?: Yes Plan: 2-day duration hematemesis with coffee grounds and red blood Previous admission in April for this, upper GI endoscopy did not show any acute bleed -Hgb 11>9.7 no Blood transfusion medication sat this point - Surgery following no plans for EGD as of now - started on PPI (2) UTI (urinary tract infection) Is this a current diagnosis for this admission?: Yes Plan: Present on admission Urine culture gram negative rods on Ceftriaxone d2 (3) Acute kidney injury superimposed on CKD Is this a current diagnosis for this admission?: Yes Plan: - crea 2.8>2.5 Prerenal due to vomiting and dehydration improving with IV fluids Trend BMP (4) Diabetic ketoacidosis Qualifiers: Diabetes mellitus type: type 1 Diabetes mellitus complication detail: witho ut coma Qualified Code(s): E10.10 - Type 1 diabetes mellitus with ketoacidosis without coma Is this a current diagnosis for this admission?: Yes Plan: - RESOLVED Possible DKA versus starvation ketosis ED start on insulin drip, this has been stopped his blood sugars in the 130s currently Sliding scale insulin Accu-Cheks (5) Hyperkalemia Is this a current diagnosis for this admission?: Yes Plan: -K 4.8 received IV calcium, Kayexalate, insulin Trend BMP (6) Sepsis Qualifiers: Sepsis type: sepsis due to unspecified organism Sepsis acute organ dysfunction status: with acute organ dysfunction Severe sepsis acute organ dysfunction type: acute renal failure Acute renal failure type: unspecified Severe sepsis shock status: without septic shock Qualified Code(s): A41.9 - Sepsis, unspecified organism; R65.20 - Severe sepsis without septic shock; N17.9 - Acute kidney failure, unspecified Is this a current diagnosis for this admission?: Yes Plan: Due to UTI Antibiotics and cultures as above (7) History of CVA (cerebrovascular accident) Is this a current diagnosis for this admission?: Yes Plan: Chronic right-sided weakness Continue home medications - Time Time Spent with patient: 25-34 minutes Anticipated Discharge Disposition: Residential Facility Anticipated Discharge Timeframe: to be determined
[2020-06-12] MEDS: PANTOPRAZOLE SODIUM 40 MG VIAL IV SCH (18:34)
[2020-06-12] MEDS: NORMAL SALINE 1000 ML 1,000 ML IV PRN (18:45)
[2020-06-13] MEDS: HEPARIN SOD (PORCINE) 5,000 UNIT/ML 1 ML VIAL SUBCUT SCH ×3 (06:02→21:17)
[2020-06-13 06:54] LABS: ABSOLUTE EOSINOPHILS # (AUTO) 0.1 10^3/uL (0.0-0.6); ABSOLUTE LYMPHOCYTES (AUTO) 1.6 10^3/uL (0.5-4.7); ABSOLUTE MONOCYTES (AUTO) 0.6 10^3/uL (0.1-1.4); ABSOLUTE NEUT (AUTO) 5.4 10^3/uL (1.7-8.2); BASOPHILS % (AUTO) 0.5 % (0-2); EOSINOPHILS % (AUTO) 1.4 % (0-6); HEMATOCRIT 27.2 % (37.9-51.0); HEMOGLOBIN 8.9 g/dL (13.5-17.0); MEAN CORPUSCULAR HGB CONC 32.8 g/dL (32.0-36.0); MEAN CORPUSCULAR VOLUME 85 fl (80-97); MONOCYTES % (AUTO) 7.8 % (3-13); PLATELET COUNT 179 10^3/uL (150-450); RED BLOOD COUNT 3.19 10^6/uL (4.35-5.55); RED CELL DISTRIBUTION WIDTH 15.7 % (11.5-14.0); SEGMENTED NEUTROPHILS % (AUTO) 69.3 % (42-78); TOTAL CELLS COUNTED % (AUTO) 100 %; WHITE BLOOD COUNT 7.8 10^3/uL (4.0-10.5)
[2020-06-13 07:10] LABS: ANION GAP 10 (5-19); BLOOD UREA NITROGEN 41 mg/dL (7-20); CALCIUM 8.5 mg/dL (8.4-10.2); CARBON DIOXIDE 17 mmol/L (22-30); CHLORIDE 117 mmol/L (98-107); GLUCOSE 121 mg/dL (75-110); POTASSIUM 4.1 mmol/L (3.6-5.0)
[2020-06-13] MEDS: NORMAL SALINE 1000 ML 1,000 ML IV PRN (07:41)
[2020-06-13] MEDS: INSULIN LISPRO 100 UNIT/ML 3 ML VIAL SUBCUT SCH ×4 (07:57→21:22)
[2020-06-13] MEDS: DOCUSATE SODIUM 100 MG CAPSULE PO SCH (10:01)
[2020-06-13] MEDS: METOPROLOL TARTRATE 25 MG TABLET PO SCH ×2 (10:04→21:17)
[2020-06-13] MEDS: GABAPENTIN 300 MG CAPSULE PO SCH (10:04)
[2020-06-13] MEDS: PANTOPRAZOLE SODIUM 40 MG VIAL IV SCH (10:05)
[2020-06-13] MEDS: RINGERS SOLUTION,LACTATED 1,000 ML IV PRN ×2 (10:05→21:17)
[2020-06-13] MEDS: CEFTRIAXONE 2 GM/D5W RTU 2 GM/50 ML RTUPB IV SCH (10:08)
[2020-06-13] MEDS: ONDANSETRON HCL INJ/PF 4 MG/2 ML SDV IV PRN (11:37)
--- NOTE | 2020-06-13 14:39 | PDOC PROGRESS REPORT ---
Subjective Date:: 06/13/20 Subjective:: CHRISSY NANCE is a 60 year old male past medical history significant for esophag eal stricture status post ballooning 3 months ago, recurrent upper GI bleeds, HTN, T2DM, prior stroke with right-sided weakness who presents with a 2-day history of progressive severe nausea/vomiting/hematemesis which patient states is the exact same presentation of his admission in April here. Patient underwent an upper GI endoscopy on previous admission that did not show any bleeding sources. GI and surgery were not made aware of the patient's arrival. I have consulted both services who have agreed to follow the patient inpatient. Patient hemoglobin is above 11 on admission. Patient also has a gap acidosis with ketones in his urine, likely due to starvation ketosis from not eating or drinking for the past few days. He also has an ESMER on top of chronic kidney disease. Suspect prerenal etiology. CT of the patient's abdomen/pelvis showed air in his bladder but otherwise no acute findings. ED start the patient on insulin drip, his blood sugar is 145 and I have instructed the nurse to stop this. He will have sliding scale insulin instead. Patient potassium on admission was 5.9. No EKG was done but I have ordered this. I have also asked the ED to treat the elevated potassium with IV calcium and IV fluids, then recheck BMP. Patient was also given Kayexalate by ED. Patient started on ceftriaxone for UTI. Urine culture and blood culture sent. I spoke with general surgery and they requested the patient get a rapid Covid test and have the blood bank made aware that the patient may need blood overnight. They will be available overnight if the patient needs them. 06/12/20 He was seen and examined at bedside. He denies any further episodes of hematemesis, nausea vomiting. Denies any abdominal pain, chest pain, shortness of breath. Hemoglobin 9.7. Surgery was consulted during this admission and since she has had any further episodes of hematemesis, with stable vital signs and normal hemoglobin no urgent endoscopy needed. He is currently being treated for urinary tract infection with ceftriaxone 06/13/20 He was seen and examined at bedside. He feels nauseated but denies any vomiting. He had 1 episode of bowel movement yesterday dark brown in color nonbloody. Hemoglobin dropped to 8.9 from 9.7 yesterday. No overt source of bleeding other than the upper GI bleeding he had when he came in. If his hemoglobin is still downtrending tomorrow we will reconsult surgery for possible EGD and colonoscopy. Reason For Visit: SEPSIS,UTI,ESMER Physical Exam Vital Signs: Temp Pulse Resp BP Pulse Ox 98.1 F 77 14 153/91 H 96 06/13/20 11:35 06/13/20 11:35 06/13/20 11:35 06/13/20 11:35 06/13/20 11:35 Intake & Output 06/12/20 06/13/20 06/14/20 06:59 06:59 06:59 Intake Total 2460 2080 462 Output Total 1000 2595 650 Balance 7247 -293 -404 Weight 58.2 kg 58.2 kg General appearance: PRESENT: no acute distress, cooperative Head exam: PRESENT: atraumatic, normocephalic Eye exam: PRESENT: EOMI Mouth exam: PRESENT: moist Neck exam: PRESENT: full ROM Respiratory exam: PRESENT: clear to auscultation jerardo, symmetrical, unlabored Cardiovascular exam: PRESENT: RRR, +S1, +S2 GI/Abdominal exam: PRESENT: normal bowel sounds, soft. ABSENT: rebound, tenderness Extremities exam: PRESENT: full ROM Musculoskeletal exam: PRESENT: full ROM Neurological exam: PRESENT: alert, awake, oriented to person, oriented to place, oriented to time Psychiatric exam: PRESENT: normal mood Skin exam: PRESENT: normal color Results Laboratory Results: 06/13/20 06:29 06/13/20 06:29 06/13/20 06/13/20 06:29 06:29 WBC 7.8 RBC 3.19 L Hgb 8.9 L Hct 27.2 L MCV 85 MCH 28.0 MCHC 32.8 RDW 15.7 H Plt Count 179 Seg Neutrophils % 69.3 Sodium 143.7 Potassium 4.1 Chloride 117 H Carbon Dioxide 17 L Anion Gap 10 BUN 41 H Creatinine 2.32 H Est GFR ( Amer) 35 L Glucose 121 H Calcium 8.5 06/11/20 13:00 Clean Catch Midstream Urine Culture - Final Klebsiella Pneumoniae Impressions: Abdomen/Pelvis CT 06/11/20 14:49 IMPRESSION: Nondependent gas in the urinary bladder, presumably due to catheterization. Otherwise no acute findings and no significant change. Assessment and Plan - Diagnosis (1) Gastrointestinal bleeding, upper Is this a current diagnosis for this admission?: Yes Plan: 2-day duration hematemesis with coffee grounds and red blood Previous admission in April for this, upper GI endoscopy did not show any acute bleed -Hgb 11>9.7>8.9 no Blood transfusion medication sat this point -EGD per Dr. Dallas - started on PPI and IV fluids support. (2) UTI (urinary tract infection) Is this a current diagnosis for this admission?: Yes Plan: Present on admission Urine culture growing Klebsiella pneumoniae sensitive to ceftriaxone on Ceftriaxone d3 (3) Acute kidney injury superimposed on CKD Is this a current diagnosis for this admission?: Yes Plan: - improving -crea 2.8>2.5>2.3 Prerenal due to vomiting and dehydration improving with IV fluids Trend BMP (4) Diabetic ketoacidosis Qualifiers: Diabetes mellitus type: type 1 Diabetes mellitus complication detail: wit hout coma Qualified Code(s): E10.10 - Type 1 diabetes mellitus with ketoa cidosis without coma Is this a current diagnosis for this admission?: Yes Plan: - RESOLVED Possible DKA versus starvation ketosis briefly on an insulin drip in the ED. Blood sugar has since been controlled. Sliding scale insulin Accu-Cheks (5) Hyperkalemia Is this a current diagnosis for this admission?: Yes Plan: -K 4.8>4.1 received IV calcium, Kayexalate, insulin Trend BMP (6) Sepsis Qualifiers: Sepsis type: sepsis due to unspecified organism Sepsis acute organ dysfunction status: with acute organ dysfunction Severe sepsis acute organ dysfunction type: acute renal failure Acute renal failure type: unspecified Severe sepsis shock status: without septic shock Qualified Code(s): A41.9 - Sepsis, unspecified organism; R65.20 - Severe sepsis without septic shock; N17.9 - Acute kidney failure, unspecified Is this a current diagnosis for this admission?: Yes Plan: Due to UTI Antibiotics and cultures as above (7) History of CVA (cerebrovascular accident) Is this a current diagnosis for this admission?: Yes Plan: Chronic right-sided weakness Continue home medications - Time Time Spent with patient: 25-34 minutes Medications reviewed and adjusted accordingly: Yes Anticipated Discharge Disposition: Home, Self Care Anticipated Discharge Timeframe: to be determined
--- NOTE | 2020-06-13 16:31 | PDOC CONSULTATION ---
Consultation Consult Date: 06/13/20 Provider Consulted: THAI AHUMADA Consult reason:: decreasing Hgb with history of hematemesis History of Present Illness Admission Date/PCP: 06/11/20 16:32 History of Present Illness: CHRISSY NANCE is a 60 year old male spoke with Dr Marie patient was admitted and seen by the the surgery service who has signed off came in with nausea and vomiting with hematemesis had been scoped by Dr Ford in the past patient had another EGD done at another location and had possible dilation done patient had presented with nausea and vomiting with hematemesis now has decreasing Hgb Covid 19 has been negative will need EGD Risks, benefits and alternatives are discussed NPO post midnight Past Medical History Cardiac Medical History: Reports: Hypertension - 2016 Denies: Congestive Heart Failure, Myocardial Infarction Pulmonary Medical History: Denies: Asthma, Bronchitis, Chronic Obstructive Pulmonary Disease (COPD), Pneumonia, Tuberculosis Neurological Medical History: Denies: Seizures Endocrine Medical History: Reports: Diabetes Mellitus Type 2 Renal/ Medical History: Denies: End Stage Renal Disease GI Medical History: Denies: Cirrhosis, Gastroesophageal Reflux Disease Musculoskeltal Medical History: Denies: Arthritis Psychiatric Medical History: Denies: Bipolar Disorder, Depression Hematology: Denies: Anemia, Bleeding Tendencies Past Surgical History Past Surgical History: Reports: Other - Left eye surgery Social History Smoking Status: Smoker,Current Status Unk Electronic Cigarette use?: No Hx Recreational Drug Use: No Hx Prescription Drug Abuse: No - Advance Directive Resuscitation Status: Full Code Family History Family History: None, Reviewed & Not Pertinent, DM, Malignancy Parental Family History Reviewed: Yes Children Family History Reviewed: Unknown Sibling(s) Family History Reviewed.: Unknown Medication/Allergy Home Medications: Amlodipine Besylate [Norvasc 10 mg Tablet] 10 mg PO DAILY 06/25/18 Metoprolol Tartrate [Lopressor 25 mg Tablet] 25 mg PO Q12 tablet 06/30/18 Gabapentin [Neurontin 300 mg Capsule] 300 mg PO BID 04/26/20 Acetaminophen [Tylenol] 650 mg PO Q4HP PRN 06/11/20 Ferrous Sulfate [Ferosul] 325 mg PO DAILY 06/11/20 Glimepiride [Amaryl 1 mg Tablet] 1 mg PO DAILY 06/11/20 Lisinopril [Prinivil 10 mg Tablet] 10 mg PO DAILY 06/11/20 Loperamide HCl [Imodium A-D] 2 mg PO ASDIR PRN 06/11/20 Allergies/Adverse Reactions: No Known Allergies Allergy (Unverified 06/25/18 06:51) Review of Systems Constitutional: ABSENT: fever(s), headache(s), night sweats Eyes: ABSENT: visual disturbances Ears: ABSENT: hearing changes Nose, Mouth, and Throat: ABSENT: mouth pain, sore throat Respiratory: ABSENT: dyspnea, hemoptysis Gastrointestinal: PRESENT: hematemesis, melena, nausea, vomiting Genitourinary: ABSENT: dysuria, hematuria Musculoskeletal: ABSENT: deformity, joint swelling Neurological: ABSENT: syncope, tingling, tremor(s) Endocrine: ABSENT: polydipsia, polyphagia, polyuria Hematologic/Lymphatic: ABSENT: easy bruising Physical Exam Vital Signs: Temp Pulse Resp BP Pulse Ox 98.1 F 77 14 153/91 H 96 06/13/20 11:35 06/13/20 11:35 06/13/20 11:35 06/13/20 11:35 06/13/20 11:35 Intake & Output 06/12/20 06/13/20 06/14/20 06:59 06:59 06:59 Intake Total 2460 2080 462 Output Total 1000 2595 650 Balance 1460 -515 -188 Weight 58.2 kg 58.2 kg General appearance: PRESENT: no acute distress, well-developed, well-nourished Head exam: PRESENT: atraumatic, normocephalic Eye exam: PRESENT: EOMI, PERRLA, scleral icterus. ABSENT: nystagmus, periorbital swelling Mouth exam: PRESENT: moist, neck supple Neck exam: ABSENT: meningismus, tenderness, thyromegaly Respiratory exam: PRESENT: symmetrical, unlabored. ABSENT: stridor, tachypnea Cardiovascular exam: PRESENT: RRR, rubs, +S2 GI/Abdominal exam: PRESENT: normal bowel sounds. ABSENT: Phan's sign, organolmegaly, rebound Extremities exam: ABSENT: joint swelling, pedal edema Musculoskeletal exam: ABSENT: full ROM Neurological exam: PRESENT: alert, awake, CN II-XII grossly intact Skin exam: PRESENT: normal color. ABSENT: mottled, pallor, urticaria, vesicles Results Laboratory Results: 06/13/20 06:29 06/13/20 06:29 06/13/20 06/13/20 06:29 06:29 WBC 7.8 RBC 3.19 L Hgb 8.9 L Hct 27.2 L MCV 85 MCH 28.0 MCHC 32.8 RDW 15.7 H Plt Count 179 Seg Neutrophils % 69.3 Sodium 143.7 Potassium 4.1 Chloride 117 H Carbon Dioxide 17 L Anion Gap 10 BUN 41 H Creatinine 2.32 H Est GFR ( Amer) 35 L Glucose 121 H Calcium 8.5 06/11/20 13:00 Clean Catch Midstream Urine Culture - Final Klebsiella Pneumoniae Impressions: Abdomen/Pelvis CT 06/11/20 14:49 IMPRESSION: Nondependent gas in the urinary bladder, presumably due to catheterization. Otherwise no acute findings and no significant change. Assessment & Plan - Diagnosis (1) Gastrointestinal bleeding, upper Is this a current diagnosis for this admission?: Yes Plan: will schedule an EGD Risks, benefits and alternatives are discussed with the patient in detail further recommendations to follow patient is Covid 19 negative - Time Time Spent: 50 to 70 Minutes
[2020-06-14] MEDS: RINGERS SOLUTION,LACTATED 1,000 ML IV PRN ×2 (05:36→14:55)
[2020-06-14] MEDS: HEPARIN SOD (PORCINE) 5,000 UNIT/ML 1 ML VIAL SUBCUT SCH ×3 (05:37→21:21)
[2020-06-14 06:49] LABS: ABSOLUTE EOSINOPHILS # (AUTO) 0.4 10^3/uL (0.0-0.6); ABSOLUTE LYMPHOCYTES (AUTO) 1.7 10^3/uL (0.5-4.7); ABSOLUTE MONOCYTES (AUTO) 0.5 10^3/uL (0.1-1.4); ABSOLUTE NEUT (AUTO) 2.8 10^3/uL (1.7-8.2); BASOPHILS % (AUTO) 0.8 % (0-2); EOSINOPHILS % (AUTO) 6.9 % (0-6); HEMATOCRIT 24.5 % (37.9-51.0); HEMOGLOBIN 8.1 g/dL (13.5-17.0); LYMPHOCYTES % (AUTO) 31.8 % (13-45); MEAN CORPUSCULAR HEMOGLOBIN 28.1 pg (27.0-33.4); MEAN CORPUSCULAR HGB CONC 33.2 g/dL (32.0-36.0); MEAN CORPUSCULAR VOLUME 85 fl (80-97); MONOCYTES % (AUTO) 9.6 % (3-13); PLATELET COUNT 167 10^3/uL (150-450); RED BLOOD COUNT 2.89 10^6/uL (4.35-5.55); RED CELL DISTRIBUTION WIDTH 15.5 % (11.5-14.0); SEGMENTED NEUTROPHILS % (AUTO) 50.9 % (42-78); TOTAL CELLS COUNTED % (AUTO) 100 %; WHITE BLOOD COUNT 5.5 10^3/uL (4.0-10.5)
[2020-06-14 07:12] LABS: ANION GAP 8 (5-19); BLOOD UREA NITROGEN 32 mg/dL (7-20); CALCIUM 8.2 mg/dL (8.4-10.2); CARBON DIOXIDE 21 mmol/L (22-30); CHLORIDE 111 mmol/L (98-107); GLUCOSE 92 mg/dL (75-110); POTASSIUM 3.7 mmol/L (3.6-5.0)
[2020-06-14] MEDS: INSULIN LISPRO 100 UNIT/ML 3 ML VIAL SUBCUT SCH ×4 (08:27→22:04)
[2020-06-14] MEDS ORDERED: PROPOFOL INJ 200 MG/20 ML VIAL IV ONE (10:36)
--- NOTE | 2020-06-14 11:16 | Operative Report ---
Operative Report DATE OF SURGERY: 06/14/20 Operative Report: The risks benefits and alternatives of the procedure explained to the patient in detail and informed consent is obtained.a GIF Olympus video scope was inserted into the patient's mouth and hypopharynx ,the esophagus is identified intubated and insufflated, the scope was then advanced through the esophagus stomach and duodenum, retroflexion maneuver is done, the esophagus stomach and first and second portions of the duodenum examined PREOPERATIVE DIAGNOSIS: Hematemesis with possible esophageal stricture in the past POSTOPERATIVE DIAGNOSIS: Clean base esophageal ulcer not actively bleeding. Biopsy of the edge obtained to rule out malignancy. Hiatal hernia. Gastritis status post biopsy. No dilation needed OPERATION: EGD with biopsy SURGEON: THAI AHUMADA ANESTHESIA: LMAC TISSUE REMOVED OR ALTERED: As noted above. COMPLICATIONS: None. ESTIMATED BLOOD LOSS: None. INTRAOPERATIVE FINDINGS: As noted above. PROCEDURE: Patient tolerated the procedure well. No immediate postprocedure complications are noted. Patient is sent back to his room in good condition. Resume regular diet as tolerated. Resume previous activity level. Watch H&H and transfuse as needed. High-dose PPI follow-up as outpatient.
[2020-06-14] MEDS: PANTOPRAZOLE SODIUM 40 MG VIAL IV SCH (12:11)
[2020-06-14] MEDS: GABAPENTIN 300 MG CAPSULE PO SCH (12:12)
[2020-06-14] MEDS: METOPROLOL TARTRATE 25 MG TABLET PO SCH ×2 (12:12→21:21)
[2020-06-14] MEDS: DOCUSATE SODIUM 100 MG CAPSULE PO SCH (12:17)
[2020-06-14] MEDS: CEFTRIAXONE 2 GM/D5W RTU 2 GM/50 ML RTUPB IV SCH (12:20)
--- NOTE | 2020-06-14 20:33 | PDOC PROGRESS REPORT ---
Subjective Date:: 06/14/20 Subjective:: CHRISSY NANCE is a 60 year old male past medical history significant for esophag eal stricture status post ballooning 3 months ago, recurrent upper GI bleeds, HTN, T2DM, prior stroke with right-sided weakness who presents with a 2-day history of progressive severe nausea/vomiting/hematemesis which patient states is the exact same presentation of his admission in April here. Patient underwent an upper GI endoscopy on previous admission that did not show any bleeding sources. GI and surgery were not made aware of the patient's arrival. I have consulted both services who have agreed to follow the patient inpatient. Patient hemoglobin is above 11 on admission. Patient also has a gap acidosis with ketones in his urine, likely due to starvation ketosis from not eating or drinking for the past few days. He also has an ESMER on top of chronic kidney disease. Suspect prerenal etiology. CT of the patient's abdomen/pelvis showed air in his bladder but otherwise no acute findings. ED start the patient on insulin drip, his blood sugar is 145 and I have instructed the nurse to stop this. He will have sliding scale insulin instead. Patient potassium on admission was 5.9. No EKG was done but I have ordered this. I have also asked the ED to treat the elevated potassium with IV calcium and IV fluids, then recheck BMP. Patient was also given Kayexalate by ED. Patient started on ceftriaxone for UTI. Urine culture and blood culture sent. I spoke with general surgery and they requested the patient get a rapid Covid test and have the blood bank made aware that the patient may need blood overnight. They will be available overnight if the patient needs them. 06/12/20 He was seen and examined at bedside. He denies any further episodes of hematemesis, nausea vomiting. Denies any abdominal pain, chest pain, shortness of breath. Hemoglobin 9.7. Surgery was consulted during this admission and since she has had any further episodes of hematemesis, with stable vital signs and normal hemoglobin no urgent endoscopy needed. He is currently being treated for urinary tract infection with ceftriaxone 06/13/20 He was seen and examined at bedside. He feels nauseated but denies any vomiting. He had 1 episode of bowel movement yesterday dark brown in color nonbloody. Hemoglobin dropped to 8.9 from 9.7 yesterday. No overt source of bleeding other than the upper GI bleeding he had when he came in. If his hemoglobin is still downtrending tomorrow we will reconsult surgery for possible EGD and colonoscopy. 06/14/20 seen and examined post EGD. Results showed an clean-based esophageal ulcer not actively bleeding. Biopsy of the edge obtained to rule out malignancy. Hiatal hernia. He denied any further episodes of melena or hematochezia. HE has good appetite Reason For Visit: SEPSIS,UTI,ESMER Physical Exam Vital Signs: Temp Pulse Resp BP Pulse Ox 97.9 F 64 18 153/87 H 100 06/14/20 19:39 06/14/20 19:39 06/14/20 19:39 06/14/20 19:39 06/14/20 19:39 Intake & Output 06/13/20 06/14/20 06/15/20 06:59 06:59 06:59 Intake Total 2080 2934 1392 Output Total 2595 2430 1650 Balance -515 504 -258 Weight 58.2 kg 58.3 kg General appearance: PRESENT: no acute distress, cooperative Head exam: PRESENT: atraumatic, normocephalic Eye exam: PRESENT: EOMI, PERRLA Mouth exam: PRESENT: moist Neck exam: PRESENT: full ROM Respiratory exam: PRESENT: clear to auscultation jerardo, symmetrical, unlabored Cardiovascular exam: PRESENT: RRR, +S1, +S2 GI/Abdominal exam: PRESENT: normal bowel sounds, soft. ABSENT: rebound, tenderness Extremities exam: PRESENT: full ROM Musculoskeletal exam: PRESENT: full ROM Neurological exam: PRESENT: alert, awake, oriented to person, oriented to place, oriented to time, oriented to situation Psychiatric exam: PRESENT: normal mood Skin exam: PRESENT: normal color Results Laboratory Results: 06/14/20 06:13 06/14/20 06:13 06/14/20 06/14/20 06:13 06:13 WBC 5.5 RBC 2.89 L Hgb 8.1 L Hct 24.5 L MCV 85 MCH 28.1 MCHC 33.2 RDW 15.5 H Plt Count 167 Seg Neutrophils % 50.9 Sodium 139.6 Potassium 3.7 Chloride 111 H Carbon Dioxide 21 L Anion Gap 8 BUN 32 H Creatinine 2.19 H Est GFR ( Amer) 37 L Glucose 92 Calcium 8.2 L Impressions: Abdomen/Pelvis CT 06/11/20 14:49 IMPRESSION: Nondependent gas in the urinary bladder, presumably due to catheterization. Otherwise no acute findings and no significant change. Assessment and Plan - Diagnosis (1) Esophageal ulcer without bleeding Is this a current diagnosis for this admission?: Yes Plan: - as seen on EGD, not actively bleeding - on protonix BID - awaiting biopsy (2) Gastrointestinal bleeding, upper Is this a current diagnosis for this admission?: Yes Plan: 2-day duration hematemesis with coffee grounds and red blood Previous admission in April for this, upper GI endoscopy did not show any acute bleed -Hgb 11>9.7>8.9>8.0 no Blood transfusion medication sat this point -EGD with esophageal ulcer non bleeding - started on PPI and IV fluids support. (3) UTI (urinary tract infection) Is this a current diagnosis for this admission?: Yes Plan: Present on admission Urine culture growing Klebsiella pneumoniae sensitive to ceftriaxone on Ceftriaxone d4 (4) Acute kidney injury superimposed on CKD Is this a current diagnosis for this admission?: Yes Plan: - improving -crea 2.8>2.5>2.3>2.19 Prerenal due to vomiting and dehydration improving with IV fluids Trend BMP (5) Diabetic ketoacidosis Qualifiers: Diabetes mellitus type: type 1 Diabetes mellitus complication detail: without coma Qualified Code(s): E10.10 - Type 1 diabetes mellitus with ketoacidosis without coma Is this a current diagnosis for this admission?: Yes Plan: - RESOLVED Possible DKA versus starvation ketosis briefly on an insulin drip in the ED. Blood sugar has since been controlled. Sliding scale insulin Accu-Cheks (6) Hyperkalemia Is this a current diagnosis for this admission?: Yes Plan: -K 4.8>4.1 received IV calcium, Kayexalate, insulin Trend BMP (7) Sepsis Qualifiers: Sepsis type: sepsis due to unspecified organism Sepsis acute organ dysfunction status: with acute organ dysfunction Severe sepsis acute organ dysfunction type: acute renal failure Acute renal failure type: unspecified Severe sepsis shock status: without septic shock Qualified Code(s): A41.9 - Sepsis, unspecified organism; R65.20 - Severe sepsis without septic shock; N17.9 - Acute kidney failure, unspecified Is this a current diagnosis for this admission?: Yes Plan: Due to UTI Antibiotics and cultures as above (8) History of CVA (cerebrovascular accident) Is this a current diagnosis for this admission?: Yes Plan: Chronic right-sided weakness Continue home medications - Time Time Spent with patient: 25-34 minutes Anticipated Discharge Disposition: Home with Home Health Anticipated Discharge Timeframe: within 48 hours
[2020-06-15] MEDS: RINGERS SOLUTION,LACTATED 1,000 ML IV PRN (01:01)
[2020-06-15] MEDS: HEPARIN SOD (PORCINE) 5,000 UNIT/ML 1 ML VIAL SUBCUT SCH ×2 (06:10→15:24)
[2020-06-15] MEDS: INSULIN LISPRO 100 UNIT/ML 3 ML VIAL SUBCUT SCH ×3 (08:07→16:25)
[2020-06-15] MEDS: METOPROLOL TARTRATE 25 MG TABLET PO SCH (09:51)
[2020-06-15] MEDS: GABAPENTIN 300 MG CAPSULE PO SCH (09:51)
[2020-06-15] MEDS: DOCUSATE SODIUM 100 MG CAPSULE PO SCH ×2 (09:51→10:02)
[2020-06-15] MEDS: ONDANSETRON HCL INJ/PF 4 MG/2 ML SDV IV PRN (09:54)
[2020-06-15] MEDS: PANTOPRAZOLE SODIUM 40 MG VIAL IV SCH (09:56)
[2020-06-15] MEDS: CEFTRIAXONE 2 GM/D5W RTU 2 GM/50 ML RTUPB IV SCH (09:58)
[2020-06-15] MEDS ORDERED: METOCLOPRAMIDE HCL INJ/PF 10 MG/2 ML SDV IV ONE (10:37)
[2020-06-15] MEDS ORDERED: DIPHENHYDRAMINE HCL 50 MG/ML VIAL IV ONE (10:38)
[2020-06-15 11:52] LABS: ABSOLUTE EOSINOPHILS # (AUTO) 0.2 10^3/uL (0.0-0.6); ABSOLUTE LYMPHOCYTES (AUTO) 0.8 10^3/uL (0.5-4.7); ABSOLUTE MONOCYTES (AUTO) 0.4 10^3/uL (0.1-1.4); ABSOLUTE NEUT (AUTO) 2.8 10^3/uL (1.7-8.2); BASOPHILS % (AUTO) 0.7 % (0-2); EOSINOPHILS % (AUTO) 5.8 % (0-6); HEMATOCRIT 26.8 % (37.9-51.0); HEMOGLOBIN 8.9 g/dL (13.5-17.0); LYMPHOCYTES % (AUTO) 17.8 % (13-45); MEAN CORPUSCULAR HEMOGLOBIN 27.6 pg (27.0-33.4); MEAN CORPUSCULAR HGB CONC 33.1 g/dL (32.0-36.0); MEAN CORPUSCULAR VOLUME 83 fl (80-97); MONOCYTES % (AUTO) 9.3 % (3-13); PLATELET COUNT 154 10^3/uL (150-450); RED BLOOD COUNT 3.22 10^6/uL (4.35-5.55); SEGMENTED NEUTROPHILS % (AUTO) 66.4 % (42-78); TOTAL CELLS COUNTED % (AUTO) 100 %; WHITE BLOOD COUNT 4.3 10^3/uL (4.0-10.5)
--- NOTE | 2020-06-15 15:55 | PDOC DISCHARGE SUMMARY ---
Impression - Admit/DC Date/PCP Admission Date/Primary Care Provider: 06/11/20 16:32 Discharge Date: 06/15/20 - Discharge Diagnosis (1) Esophageal ulcer without bleeding Is this a current diagnosis for this admission?: Yes (2) Gastrointestinal bleeding, upper Is this a current diagnosis for this admission?: Yes (3) UTI (urinary tract infection) Is this a current diagnosis for this admission?: Yes (4) Acute kidney injury superimposed on CKD Is this a current diagnosis for this admission?: Yes (5) Diabetic ketoacidosis Is this a current diagnosis for this admission?: Yes (6) Hyperkalemia Is this a current diagnosis for this admission?: Yes (7) Sepsis Is this a current diagnosis for this admission?: Yes (8) History of CVA (cerebrovascular accident) Is this a current diagnosis for this admission?: Yes - Assessment Summary: (1) Esophageal ulcer without bleeding Is this a current diagnosis for this admission?: Yes Plan: - as seen on EGD, not actively bleeding - on protonix BID - awaiting biopsy (2) Gastrointestinal bleeding, upper Is this a current diagnosis for this admission?: Yes Plan: 2-day duration hematemesis with coffee grounds and red blood Previous admission in April for this, upper GI endoscopy did not show any acute bleed -Hgb 11>9.7>8.9>8.0 no Blood transfusion medication sat this point -EGD with esophageal ulcer non bleeding - started on PPI and IV fluids support. (3) UTI (urinary tract infection) Is this a current diagnosis for this admission?: Yes Plan: Present on admission Urine culture growing Klebsiella pneumoniae sensitive to ceftriaxone on Ceftriaxone d4 (4) Acute kidney injury superimposed on CKD Is this a current diagnosis for this admission?: Yes Plan: - improving -crea 2.8>2.5>2.3>2.19 Prerenal due to vomiting and dehydration improving with IV fluids Trend BMP (5) Diabetic ketoacidosis Qualifiers: Diabetes mellitus type: type 1 Diabetes mellitus complication detail: without coma Qualified Code(s): E10.10 - Type 1 diabetes mellitus with ketoacidosis without coma Is this a current diagnosis for this admission?: Yes Plan: - RESOLVED Possible DKA versus starvation ketosis briefly on an insulin drip in the ED. Blood sugar has since been controlled. Sliding scale insulin Accu-Cheks (6) Hyperkalemia Is this a current diagnosis for this admission?: Yes Plan: -K 4.8>4.1 received IV calcium, Kayexalate, insulin Trend BMP (7) Sepsis Qualifiers: Sepsis type: sepsis due to unspecified organism Sepsis acute organ dysfunction status: with acute organ dysfunction Severe sepsis acute organ dysfunction type: acute renal failure Acute renal failure type: unspecified Severe sepsis shock status: without septic shock Qualified Code(s): A41.9 - Sepsis, unspecified organism; R65.20 - Severe sepsis without septic shock; N17.9 - Acute kidney failure, unspecified Is this a current diagnosis for this admission?: Yes Plan: Due to UTI Antibiotics and cultures as above (8) History of CVA (cerebrovascular accident) Is this a current diagnosis for this admission?: Yes Plan: Chronic right-sided weakness Continue home medications - Additional Information Resuscitation Status: Full Code Discharge Diet: As Tolerated Discharge Activity: Activity As Tolerated Referrals: [facility] [Outside] Prescriptions: Cefuroxime Axetil [Ceftin 500 mg Tablet] 1 tab PO BID 4 Days #8 tablet Pantoprazole Sodium 40 mg PO BID 30 Days #60 tablet. Ondansetron [Zofran Odt 4 mg Tablet] 4 mg PO Q4HP PRN 15 Days #20 tab.rapdis PRN Reason: Home Medications: Amlodipine Besylate [Norvasc 10 mg Tablet] 10 mg PO DAILY 06/25/18 Metoprolol Tartrate [Lopressor 25 mg Tablet] 25 mg PO Q12 tablet 06/30/18 Gabapentin [Neurontin 300 mg Capsule] 300 mg PO BID 04/26/20 Acetaminophen [Tylenol] 650 mg PO Q4HP PRN 06/11/20 Ferrous Sulfate [Ferosul] 325 mg PO DAILY 06/11/20 Glimepiride [Amaryl 1 mg Tablet] 1 mg PO DAILY 06/11/20 Lisinopril [Prinivil 10 mg Tablet] 10 mg PO DAILY 06/11/20 Cefuroxime Axetil [Ceftin 500 mg Tablet] 1 tab PO BID 4 Days #8 tablet 06/15/20 Ondansetron [Zofran Odt 4 mg Tablet] 4 mg PO Q4HP PRN 15 Days #20 tab.rapdis 06/15/20 Pantoprazole Sodium 40 mg PO BID 30 Days #60 tablet. 06/15/20 History of Present Illiness History of Present Illness: CHRISSY NANCE is a 60 year old male past medical history significant for esophageal stricture status post ballooning 3 months ago, recurrent upper GI bleeds, HTN, T2DM, prior stroke with right-sided weakness who presents with a 2- day history of progressive severe nausea/vomiting/hematemesis which patient states is the exact same presentation of his admission in April here. Patient underwent an upper GI endoscopy on previous admission that did not show any bleeding sources. GI and surgery were not made aware of the patient's arrival. I have consulted both services who have agreed to follow the patient inpatient. Patient hemoglobin is above 11 on admission. Patient also has a gap acidosis with ketones in his urine, likely due to starvation ketosis from not eating or drinking for the past few days. He also has an ESMER on top of chronic kidney disease. Suspect prerenal etiology. CT of the patient's abdomen/pelvis showed air in his bladder but otherwise no acute findings. ED start the patient on insulin drip, his blood sugar is 145 and I have instructed the nurse to stop this. He will have sliding scale insulin instead. Patient potassium on admission was 5.9. No EKG was done but I have ordered this. I have also asked the ED to treat the elevated potassium with IV calcium and IV fluids, then recheck BMP. Patient was also given Kayexalate by ED. Patient started on ceftriaxone for UTI. Urine culture and blood culture sent. I spoke with general surgery and they requested the patient get a rapid Covid test and have the blood bank made aware that the patient may need blood overnight. They will be available overnight if the patient needs them. Hospital Course Hospital Course: 06/12/20 He was seen and examined at bedside. He denies any further episodes of hematemesis, nausea vomiting. Denies any abdominal pain, chest pain, shortness of breath. Hemoglobin 9.7. Surgery was consulted during this admission and since she has had any further episodes of hematemesis, with stable vital signs and normal hemoglobin no urgent endoscopy needed. He is currently being treated for urinary tract infection with ceftriaxone 06/13/20 He was seen and examined at bedside. He feels nauseated but denies any vomiting. He had 1 episode of bowel movement yesterday dark brown in color nonbloody. Hemoglobin dropped to 8.9 from 9.7 yesterday. No overt source of bleeding other than the upper GI bleeding he had when he came in. If his hemoglobin is still downtrending tomorrow we will reconsult surgery for possible EGD and colonoscopy. 06/14/20 seen and examined post EGD. Results showed an clean-based esophageal ulcer not actively bleeding. Biopsy of the edge obtained to rule out malignancy. Hiatal hernia. He denied any further episodes of melena or hematochezia. HE has good appetite Physical Exam Vital Signs: Temp Pulse Resp BP Pulse Ox 97.7 F 76 17 133/75 H 97 06/15/20 11:26 06/15/20 11:26 06/15/20 11:26 06/15/20 11:26 06/15/20 11:26 Intake & Output 06/14/20 06/15/20 06/16/20 06:59 06:59 06:59 Intake Total 2934 2862 410 Output Total 2430 2970 350 Balance 504 -108 60 Weight 58.3 kg 58.3 kg General appearance: PRESENT: no acute distress, cooperative Head exam: PRESENT: atraumatic, normocephalic Eye exam: PRESENT: EOMI, PERRLA Mouth exam: PRESENT: moist Neck exam: PRESENT: full ROM Respiratory exam: PRESENT: clear to auscultation jerardo, symmetrical, unlabored Cardiovascular exam: PRESENT: RRR, +S1, +S2 Pulses: PRESENT: +2 pedal pulses bilateral Extremities exam: PRESENT: full ROM Musculoskeletal exam: PRESENT: full ROM Neurological exam: PRESENT: alert, awake, oriented to person, oriented to place, oriented to time Skin exam: PRESENT: normal color Results Laboratory Results: WBC 4.3 10^3/uL (4.0-10.5) 06/15/20 11:31 RBC 3.22 10^6/uL (4.35-5.55) L 06/15/20 11:31 Hgb 8.9 g/dL (13.5-17.0) L 06/15/20 11:31 Hct 26.8 % (37.9-51.0) L 06/15/20 11:31 MCV 83 fl (80-97) 06/15/20 11:31 MCH 27.6 pg (27.0-33.4) 06/15/20 11:31 MCHC 33.1 g/dL (32.0-36.0) 06/15/20 11:31 RDW 15.0 % (11.5-14.0) H 06/15/20 11:31 Plt Count 154 10^3/uL (150-450) 06/15/20 11:31 Lymph % (Auto) 17.8 % (13-45) 06/15/20 11:31 [place] % (Auto) 9.3 % (3-13) 06/15/20 11:31 Eos % (Auto) 5.8 % (0-6) 06/15/20 11:31 Baso % (Auto) 0.7 % (0-2) 06/15/20 11:31 Absolute Neuts (auto) 2.8 10^3/uL (1.7-8.2) 06/15/20 11:31 Absolute Lymphs (auto) 0.8 10^3/uL (0.5-4.7) 06/15/20 11:31 Absolute Monos (auto) 0.4 10^3/uL (0.1-1.4) 06/15/20 11:31 Absolute Eos (auto) 0.2 10^3/uL (0.0-0.6) 06/15/20 11:31 Absolute Basos (auto) 0.0 10^3/uL (0.0-0.2) 06/15/20 11:31 Total Counted 100 06/11/20 10:08 Seg Neutrophils % 66.4 % (42-78) 06/15/20 11:31 Seg Neuts % (Manual) 97 % (42-78) H 06/11/20 10:08 Lymphocytes % (Manual) 2 % (13-45) L 06/11/20 10:08 Monocytes % (Manual) 1 % (3-13) L 06/11/20 10:08 Eosinophils % (Manual) 0 % (0-6) 06/11/20 10:08 Basophils % (Manual) 0 % (0-2) 06/11/20 10:08 Abs Neuts (Manual) 14.8 10^3/uL (1.7-8.2) H 06/11/20 10:08 Abs Lymphs (Manual) 0.3 10^3/uL (0.5-4.7) L 06/11/20 10:08 Abs Monocytes (Manual) 0.2 10^3/uL (0.1-1.4) 06/11/20 10:08 Absolute Eos (Manual) 0.0 10^3/uL (0.0-0.6) 06/11/20 10:08 Abs Basophils (Manual) 0.0 10^3/uL (0.0-0.2) 06/11/20 10:08 Platelet Comment ADEQUATE 06/11/20 10:08 Poikilocytosis SLIGHT 06/11/20 10:08 Anisocytosis SLIGHT 06/11/20 10:08 Ovalocytes SLIGHT 06/11/20 10:08 Adriana Cells SLIGHT 06/11/20 10:08 VBG pH 7.30 (7.30-7.42) 06/11/20 15:50 VBG pCO2 30.3 mmHg (35-63) L 06/11/20 15:50 VBG HCO3 14.6 mmol/L (20-32) L 06/11/20 15:50 VBG Base Excess -10.2 mmol/L 06/11/20 15:50 Sodium 139.6 mmol/L (137-145) 06/14/20 06:13 Potassium 3.7 mmol/L (3.6-5.0) 06/14/20 06:13 Chloride 111 mmol/L (98-107) H 06/14/20 06:13 Carbon Dioxide 21 mmol/L (22-30) L 06/14/20 06:13 Anion Gap 8 (5-19) 06/14/20 06:13 BUN 32 mg/dL (7-20) H 06/14/20 06:13 Creatinine 2.19 mg/dL (0.52-1.25) H 06/14/20 06:13 Est GFR ( Amer) 37 (>60) L 06/14/20 06:13 Est GFR (MDRD) Non-Af 31 (>60) L 06/14/20 06:13 Glucose 92 mg/dL (75-110) 06/14/20 06:13 POC Glucose 149 mg/dL (70-110) H 06/15/20 11:26 Hemoglobin A1c % 4.9 % (4.7-6.0) 06/12/20 06:34 Lactic Acid 0.7 mmol/L (0.7-2.1) 06/11/20 18:30 Calcium 8.2 mg/dL (8.4-10.2) L 06/14/20 06:13 Phosphorus 3.9 mg/dL (2.5-4.5) 06/12/20 06:34 Magnesium 2.1 mg/dL (1.6-2.3) 06/12/20 06:34 Total Bilirubin 0.4 mg/dL (0.2-1.3) 06/11/20 10:08 Direct Bilirubin 0.2 mg/dL (0.0-0.4) 06/11/20 10:08 Neonat Total Bilirubin Not Reportable 06/11/20 10:08 Neonat Direct Bilirubin Not Reportable 06/11/20 10:08 Neonat Indirect Bili Not Reportable 06/11/20 10:08 AST 18 U/L (17-59) 06/11/20 10:08 ALT 9 U/L (<50) 06/11/20 10:08 Alkaline Phosphatase 109 U/L (38-126) 06/11/20 10:08 Ammonia < 8.7 umol/L (9-33) L 06/12/20 06:34 Total Protein 7.6 g/dL (6.3-8.2) 06/11/20 10:08 Albumin 4.7 g/dL (3.5-5.0) 06/11/20 10:08 Beta-Hydroxybutyrate 63 mg/dL (.) H 06/11/20 18:30 TSH 0.48 uIU/mL (0.47-4.68) 06/12/20 06:34 Urine Color YELLOW 06/11/20 13:00 Urine Appearance SLIGHTLY-CLOUDY 06/11/20 13:00 Urine pH 5.0 (5.0-9.0) 06/11/20 13:00 Ur Specific [place] 1.012 06/11/20 13:00 Urine Protein 100 mg/dL (NEGATIVE) H 06/11/20 13:00 Urine Glucose (UA) 50 mg/dL (NEGATIVE) H 06/11/20 13:00 Urine Ketones 20 mg/dL (NEGATIVE) H 06/11/20 13:00 Urine Blood SMALL (NEGATIVE) H 06/11/20 13:00 Urine Nitrite NEGATIVE (NEGATIVE) 06/11/20 13:00 Urine Bilirubin NEGATIVE (NEGATIVE) 06/11/20 13:00 Urine Urobilinogen NEGATIVE mg/dL (<2.0) 06/11/20 13:00 Ur Leukocyte Esterase SMALL (NEGATIVE) H 06/11/20 13:00 Urine WBC (Auto) 19 /HPF 06/11/20 13:00 Urine RBC (Auto) 1 /HPF 06/11/20 13:00 Urine Bacteria (Auto) 3+ /HPF 06/11/20 13:00 Urine Mucus (Auto) RARE /LPF 06/11/20 13:00 Urine Ascorbic Acid NEGATIVE (NEGATIVE) 06/11/20 13:00 SARS-CoV-2 (PCR) NEGATIVE (NEGATIVE) 06/11/20 20:16 Blood Type O POSITIVE 06/11/20 11:30 Antibody Screen NEGATIVE 06/11/20 11:30 Impressions: Abdomen/Pelvis CT 06/11/20 14:49 IMPRESSION: Nondependent gas in the urinary bladder, presumably due to catheterization. Otherwise no acute findings and no significant change. Plan Plan of Treatment: - started on PPI twice a day - complete oral abx - monitor Hgb weekly Time Spent: Greater than 30 Minutes Stroke Is this a Stroke Patient?: No Acute Heart Failure Is this a Heart Failure Patient?: No
[2020-06-15 18:04] VITALS: BP 163/85
== END 2020-06-15 18:58 | DRG 871 ==
LOC: ER 10:19 → EH 16:32 → 4S 19:03
PROVIDERS: ADMIT Internal Medicine; ATTEND Internal Medicine
PROC: 0DB68ZX Excision of Stomach, Via Natural or Artificial Opening Endoscopic, Diagnostic (ICD-10-PCS; 2020-06-14)
PROC: 0DB58ZX Excision of Esophagus, Via Natural or Artificial Opening Endoscopic, Diagnostic (ICD-10-PCS; principal; 2020-06-14 11:00)
DX: A41.9 Sepsis, unspecified organism (principal); K22.11 Ulcer of esophagus with bleeding; N39.0 Urinary tract infection, site not specified; N17.9 Acute kidney failure, unspecified; I69.351 Hemiplegia and hemiparesis following cerebral infarction affecting right dominant side; E88.89 Other specified metabolic disorders; K44.9 Diaphragmatic hernia without obstruction or gangrene; K29.70 Gastritis, unspecified, without bleeding; E86.0 Dehydration; E87.5 Hyperkalemia; B96.1 Klebsiella pneumoniae [K. pneumoniae] as the cause of diseases classified elsewhere; E11.22 Type 2 diabetes mellitus with diabetic chronic kidney disease; N18.9 Chronic kidney disease, unspecified; Z20.828 Contact with and (suspected) exposure to other viral communicable diseases
CPT/HCPCS: 00731; 36415; 43239; 74176; 80048; 80053; 81001; 82010; 82140; 82803; 82962; 83036; 83605; 83735; 84100; 84443; 85025; 86850; 86900; 86901; 87040; 87086; 87088; 87186; 87635; 88305; 88342; 93005; 93010; 96360; 96361; 99285; C9113; C9803; J0610; J0696; J1200; J1644; J1815; J2405; J2704; J2765; J7030; J7120

== ENCOUNTER 2020-07-31 08:52 | Inpatient (IN) | payer MEDICARE ==
[2020-07-31] MEDS ORDERED: NORMAL SALINE 1000 ML 1,000 ML IV ONE ×2 (09:34→12:29)
[2020-07-31 10:20] LABS: ABSOLUTE EOSINOPHILS # (AUTO) 0.2 10^3/uL (0.0-0.6); ABSOLUTE LYMPHOCYTES (AUTO) 0.7 10^3/uL (0.5-4.7); ABSOLUTE MONOCYTES (AUTO) 0.3 10^3/uL (0.1-1.4); ABSOLUTE NEUT (AUTO) 4.2 10^3/uL (1.7-8.2); BASOPHILS % (AUTO) 0.8 % (0-2); HEMATOCRIT 33.9 % (37.9-51.0); LYMPHOCYTES % (AUTO) 13.2 % (13-45); MEAN CORPUSCULAR HEMOGLOBIN 27.5 pg (27.0-33.4); MEAN CORPUSCULAR HGB CONC 32.5 g/dL (32.0-36.0); MEAN CORPUSCULAR VOLUME 84 fl (80-97); MONOCYTES % (AUTO) 5.4 % (3-13); PLATELET COUNT 185 10^3/uL (150-450); RED BLOOD COUNT 4.02 10^6/uL (4.35-5.55); SEGMENTED NEUTROPHILS % (AUTO) 77.6 % (42-78); TOTAL CELLS COUNTED % (AUTO) 100 %; WHITE BLOOD COUNT 5.4 10^3/uL (4.0-10.5)
[2020-07-31 10:34] LABS: ALBUMIN 3.9 g/dL (3.5-5.0); ALKALINE PHOSPHATASE 95 U/L (38-126); ANION GAP 10 (5-19); ASPARTATE AMINO TRANSFERASE 14 U/L (17-59); BILIRUBIN,DIRECT 0.2 mg/dL (0.0-0.4); BILIRUBIN,TOTAL 0.3 mg/dL (0.2-1.3); BLOOD UREA NITROGEN 40 mg/dL (7-20); CALCIUM 9.3 mg/dL (8.4-10.2); CARBON DIOXIDE 18 mmol/L (22-30); CHLORIDE 111 mmol/L (98-107); GLUCOSE 118 mg/dL (75-110); POTASSIUM 5.5 mmol/L (3.6-5.0)
--- NOTE | 2020-07-31 10:48 | ER Document Report ---
Entered by DAHIANA ABRAMS SCRIBE 07/31/20 0938 Acting as scribe for:ALEKSANDAR VUONG MD ED General - General Chief Complaint: Other Stated Complaint: LOSS OF APPETITE Time Seen by Provider: 07/31/20 09:23 Mode of Arrival: Medic Information source: Patient, [facility] Records Notes: This 60 year old male patient with a history of hypertension, type 2 diabetes mellitus, and CVA with residual right-sided weakness presents to the ED today via EMS from [facility] with complaints of dysphagia for the past x3 days. Patient states that he is able to tolerate little amounts of liquid, but when he tries to swallow food, it "catches" in his esophagus and he vomits. Den ies hematemesis. Per [facility] records, patient had an EGD done by Dr. Dallas on 06/14 that revealed a healing esophageal ulcer that was not bleeding. TRAVEL OUTSIDE OF THE [place] IN LAST 30 DAYS: No - Related Data Allergies/Adverse Reactions: No Known Allergies Allergy (Verified 07/31/20 08:56) Home Medications: ferrous sulfate. gabapentin. lisinopril. pantoprazole. acetaminophen. immodium. ondansetron. pepto bismol. 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 Pupils: PERRL - Respiratory Respiratory status: No respiratory distress Chest status: Nontender Breath sounds: Normal Chest palpation: Normal - Cardiovascular Rhythm: Regular Heart sounds: Normal auscultation Murmur: No Friction rub: No Gallop: None auscultated - Abdominal Inspection: Normal Distension: No distension Bowel sounds: Normal Tenderness: Nontender - Abdomen soft Organomegaly: No organomegaly - Back Back: Normal, Nontender - Extremities General upper extremity: Normal inspection General lower extremity: Normal inspection. No: Edema - Neurological Neuro grossly intact: Yes Orientation: AAOx4 [place] Coma Scale Eye Opening: Spontaneous [place] Coma Scale Verbal: Oriented [place] Coma Scale Motor: Obeys Commands [place] Coma Scale Total: 15 Additional motor exam normals: Weakness - Residual right-sided weakness from prior CVA - Psychological Associated symptoms: Normal affect, Normal mood - Skin Skin Temperature: Warm Skin Moisture: Dry Skin Color: Normal Course - Vital Signs Vital signs: Temp Pulse Resp BP Pulse Ox 98.4 F 83 18 149/93 H 100 07/31/20 08:56 07/31/20 08:52 07/31/20 08:52 07/31/20 08:52 07/31/20 08:52 - Laboratory Results Result Diagrams: 07/31/20 09:45 07/31/20 09:45 Laboratory Results Interpreted: 07/31/20 07/31/20 07/31/20 09:45 09:45 14:10 RBC 4.02 L Hgb 11.0 L Hct 33.9 L RDW 15.0 H Potassium 5.5 H Chloride 111 H Carbon Dioxide 18 L BUN 40 H Creatinine 3.48 H Est GFR ( Amer) 22 L Est GFR (MDRD) Non-Af 18 L Glucose 118 H AST 14 L Urine Protein 100 H Urine Ketones TRACE H Ur Leukocyte Esterase MODERATE H Critical Laboratory Results Reviewed: Yes Attending or Supervising Physician who Reviewed Labs: ALEKSANDAR VUONG - Potassium 5.5, BUN 40, creatinine 3.48 - Radiology Results Radiology Results Interpreted: 07/31/20 12:32 Barium swallow shows persistent narrowing of the mid to distal third of the esophagus, small hiatal hernia with marked gastroesophageal reflux. No obstruction. Critical Radiology Results Reviewed: No Critical Results - EKG Interpretation by Me EKG shows normal: Sinus rhythm, [place], Intervals, QRS Complexes, ST-T Waves Rate: Normal - 76 Rhythm: NSR [place]/QRS: RBBB When compared to previous EKG there are: No significant change - Consults Dr. John Time consulted: 12:12 Consulted provider: follow-up in office - Reviewed the prior endoscopy and path report, the current barium swallow films. Recommended Reglan 10 mg 3 times daily and liquid diet, follow-up in the office for evaluation for Shad fundoplication. Dr. Vanessa Time consulted: 13:55 Consulted provider: will come to ER Discharge - Discharge Clinical Impression: Esophageal narrowing, Hiatal hernia with gastroesophageal reflux disease and esophagitis, Dehydration, Acute hyperkalemia Acute on chronic renal failure Qualifiers: Acute renal failure type: unspecified Chronic kidney disease stage: stage 4 (severe) Qualified Code(s): N17.9 - Acute kidney failure, unspecified; N18.4 - Chronic kidney disease, stage 4 (severe) Urinary tract infection Qualifiers: Urinary tract infection type: site unspecified Hematuria presence: without hematuria Qualified Code(s): N39.0 - Urinary tract infection, site not specified Condition: Stable Disposition: ADMITTED INPATIENT Admitting Provider: [facility] (Hospitalist) Unit Admitted: Medical Floor I personally performed the services described in the documentation, reviewed and edited the documentation which was dictated to the scribe in my presence, and it accurately records my words and actions.
--- NOTE | 2020-07-31 11:42 | RADIOLOGY REPORT (SQ) ---
EXAM DESCRIPTION: BARIUM SWALLOW ESOPHAGUS IMAGES COMPLETED DATE/TIME: 07/31/2020 10:35 am REASON FOR STUDY: Unable to swallow food or fluids COMPARISON: None. TECHNIQUE: Under fluoroscopic guidance, patient ingested effervescent granules followed by thick and thin barium. Fluoroscopic spot images and routine radiographic images acquired and stored on PACS. 12 MM BARIUM TABLET GIVEN: No LIMITATIONS: None. FLUOROSCOPY TIME: FLUORO TIME: 3.6 minutes 17 images saved to PACS. FINDINGS: NEUROMUSCULAR COORDINATION OF SWALLOW: Normal. No aspiration. ESOPHAGEAL MOTILITY: Normal peristalsis. No esophageal spasm. ESOPHAGEAL MUCOSA: There is a narrowing in the mid to distal 3rd esophagus which is persistent. Norm al mucosa without masses or ulceration. GASTRO-ESOPHAGEAL JUNCTION: Small hiatal hernia. Marked gastroesophageal reflux. NON-GI TRACT STRUCTURES: No significant finding. OTHER: No other significant finding. IMPRESSION: PERSISTENT NARROWING OF THE MID TO DISTAL 3RD ESOPHAGUS. SMALL HIATAL HERNIA WITH MARKE D GASTROESOPHAGEAL REFLUX. RECOMMENDATION: Upper endoscopy for further evaluation. COMMENT: None Quality ID [id number]: Final reports for procedures using fluoroscopy that document radiation exposure kleber alexus, or exposure time and number of fluorographic images (if radiation exposure indices are not avail able) TECHNICAL DOCUMENTATION: JOB ID: [id number] 2010 [employer]- All Rights Reserved Reading location - IP/workstation name: [facility]
[2020-07-31 14:42] LABS: APPEARANCE,URINE SLIGHTLY-CLOUDY; BILIRUBIN,URINE NEGATIVE (NEGATIVE); COLOR,URINE YELLOW; GLUCOSE, URINE NEGATIVE (NEGATIVE); KETONES,URINE TRACE mg/dL (NEGATIVE); LEUKOCYTE ESTERASE,URINE MODERATE (NEGATIVE); NITRITE,URINE NEGATIVE (NEGATIVE); PROTEIN,URINE 100 mg/dL (NEGATIVE); URINE SPECIFIC GRAVITY 1.011; UROBILINOGEN,URINE NEGATIVE mg/dL (<2.0)
[2020-07-31] MEDS ORDERED: ACETAMINOPHEN 325 MG TABLET PO PRN (14:52)
[2020-07-31] MEDS ORDERED: NORMAL SALINE 1000 ML 1,000 ML IV PRN (14:52)
--- NOTE | 2020-07-31 16:12 | EKG REPORT ---
SEVERITY:- ABNORMAL ECG - SINUS RHYTHM RIGHT BUNDLE BRANCH BLOCK : Confirmed by: Tone Soto MD 31-Jul-2020 16:12:16
--- NOTE | 2020-07-31 17:02 | PDOC H&P ---
History of Present Illness Admission Date/PCP: 07/31/20 15:07 Patient complains of: Unable to take anything by mouth History of Present Illness: CHRISSY NANCE is a 60 year old male resident of assisted living, history of stroke, hypertension came to the emergency room with complaints of unable to take anything by mouth. Patient has a recent history of admission for upper GI bleed status post endoscopy was done at this time. Barium swallow was done in the emergency room indicated of narrowing of the distal esophagus. Contrast is going through the esophagus. Medical consult was called for admission for management of hyperkalemia, acute kidney injury. Dr. John agreed to see the patient as an outpatient in his office. Past Medical History Cardiac Medical History: Reports: Hypertension - 2016 Denies: Congestive Heart Failure, Myocardial Infarction Pulmonary Medical History: Denies: Asthma, Bronchitis, Chronic Obstructive Pulmonary Disease (COPD), Pneumonia, Tuberculosis Neurological Medical History: Denies: Seizures Endocrine Medical History: Reports: Diabetes Mellitus Type 2 Renal/ Medical History: Denies: End Stage Renal Disease GI Medical History: Denies: Cirrhosis, Gastroesophageal Reflux Disease Musculoskeltal Medical History: Denies: Arthritis Psychiatric Medical History: Denies: Bipolar Disorder, Depression Hematology: Denies: Anemia, Bleeding Tendencies Past Surgical History Past Surgical History: Reports: Other - Left eye surgery Social History Smoking Status: Never Smoker Electronic Cigarette use?: No Hx Recreational Drug Use: No Hx Prescription Drug Abuse: No - Advance Directive Resuscitation Status: Do Not Resuscitate Family History Family History: Reviewed & Not Pertinent, DM, Malignancy Parental Family History Reviewed: Yes - Hypertension Children Family History Reviewed: Yes Sibling(s) Family History Reviewed.: Yes Medication/Allergy Home Medications: Amlodipine Besylate [Norvasc 10 mg Tablet] 10 mg PO DAILY 06/25/18 Metoprolol Tartrate [Lopressor 25 mg Tablet] 25 mg PO Q12 tablet 06/30/18 Gabapentin [Neurontin 300 mg Capsule] 300 mg PO BID 04/26/20 Acetaminophen [Tylenol] 650 mg PO Q4HP PRN 06/11/20 Ferrous Sulfate [Ferosul] 325 mg PO DAILY 06/11/20 Glimepiride [Amaryl 1 mg Tablet] 1 mg PO DAILY 06/11/20 Lisinopril [Prinivil 10 mg Tablet] 10 mg PO DAILY 06/11/20 Cefuroxime Axetil [Ceftin 500 mg Tablet] 1 tab PO BID 4 Days #8 tablet 06/15/20 Ondansetron [Zofran Odt 4 mg Tablet] 4 mg PO Q4HP PRN 15 Days #20 tab.rapdis 06/15/20 Pantoprazole Sodium 40 mg PO BID 30 Days #60 tablet. 06/15/20 Allergies/Adverse Reactions: No Known Allergies Allergy (Verified 07/31/20 08:56) Review of Systems Constitutional: PRESENT: anorexia, fatigue, weakness. ABSENT: fever(s), night sweats Eyes: ABSENT: visual disturbances Ears: ABSENT: hearing changes Nose, Mouth, and Throat: ABSENT: sore throat Cardiovascular: ABSENT: orthropnea, palpitations Respiratory: ABSENT: dyspnea, hemoptysis Gastrointestinal: ABSENT: diarrhea, heartburn, hematemesis, hematochezia Genitourinary: ABSENT: dysuria, hematuria Musculoskeletal: ABSENT: deformity Integumentary: ABSENT: lesions, pruritus Neurological: ABSENT: focal weakness Psychiatric: ABSENT: anxiety, depression, homidical ideation, suicidal ideation Endocrine: ABSENT: cold intolerance, heat intolerance, polydipsia, polyuria Physical Exam Vital Signs: Temp Pulse Resp BP Pulse Ox 97.8 F 73 16 148/82 H 100 07/31/20 16:28 07/31/20 16:28 07/31/20 16:28 07/31/20 16:28 07/31/20 16:28 Intake & Output 07/30/20 07/31/20 08/01/20 06:59 06:59 06:59 Intake Total 1999 Balance 1999 Weight 56.699 kg General appearance: PRESENT: no acute distress, cooperative, thin Head exam: PRESENT: atraumatic Eye exam: PRESENT: PERRLA Ear exam: PRESENT: normal external ear exam Mouth exam: PRESENT: dry mucosa Neck exam: ABSENT: carotid bruit, JVD, lymphadenopathy, thyromegaly Respiratory exam: PRESENT: decreased breath sounds Cardiovascular exam: PRESENT: RRR. ABSENT: diastolic murmur, rubs, systolic murmur Pulses: PRESENT: normal dorsalis pedis pul GI/Abdominal exam: PRESENT: normal bowel sounds, soft. ABSENT: distended, guarding, mass, organolmegaly, rebound, tenderness Rectal exam: PRESENT: deferred Extremities exam: PRESENT: full ROM. ABSENT: calf tenderness, clubbing, pedal edema Neurological exam: PRESENT: alert, awake, oriented to person, oriented to place, oriented to time, oriented to situation, CN II-XII grossly intact. ABSENT: motor sensory deficit Psychiatric exam: PRESENT: appropriate affect, normal mood. ABSENT: homicidal ideation, suicidal ideation Results Laboratory Results: 07/31/20 09:45 07/31/20 09:45 07/31/20 07/31/20 07/31/20 09:45 09:45 14:10 WBC 5.4 RBC 4.02 L Hgb 11.0 L Hct 33.9 L MCV 84 MCH 27.5 MCHC 32.5 RDW 15.0 H Plt Count 185 Seg Neutrophils % 77.6 Sodium 139.3 Potassium 5.5 H Chloride 111 H Carbon Dioxide 18 L Anion Gap 10 BUN 40 H Creatinine 3.48 H Est GFR ( Amer) 22 L Glucose 118 H Calcium 9.3 Magnesium 2.2 Total Bilirubin 0.3 AST 14 L Alkaline Phosphatase 95 Total Protein 7.0 Albumin 3.9 Urine Color YELLOW Urine Appearance SLIGHTLY-CLOUDY Urine pH 5.0 Ur Specific [place] 1.011 Urine Protein 100 H Urine Glucose (UA) NEGATIVE Urine Ketones TRACE H Urine Blood NEGATIVE Urine Nitrite NEGATIVE Ur Leukocyte Esterase MODERATE H Urine WBC (Auto) 36 Urine RBC (Auto) 1 Impressions: Esophagus X-Ray 07/31/20 09:45 IMPRESSION: PERSISTENT NARROWING OF THE MID TO DISTAL 3RD ESOPHAGUS. SMALL HIATAL HERNIA WITH MARKED GASTROESOPHAGEAL REFLUX. Assessment and Plan - Diagnosis (1) Acute kidney injury superimposed on CKD Is this a current diagnosis for this admission?: Yes Plan: 07/31/2020-patient is going to be admitted to medical floor with a diagnosis of acute on chronic kidney injury. Started on IV fluids normal saline 75 cc/h. To recheck the labs tomorrow. (2) UTI (urinary tract infection) Qualifiers: Urinary tract infection type: site unspecified Hematuria presence: without hematuria Qualified Code(s): N39.0 - Urinary tract infection, site not specifi ed Is this a current diagnosis for this admission?: Yes Plan: 07/31/2020-urine analysis abnormal. Urine cultures blood cultures are pending. Started on IV Rocephin 1 g daily. (3) Dysphagia Is this a current diagnosis for this admission?: Yes Plan: 07/31/2020-patient he has difficulty in eating or drinking. Came in with dehydration, hyperkalemia, acute on chronic kidney injury. To start him on full liquid diet's, rehydrated the patient, take care of the acute kidney injury and will make a follow-up visit with Dr. John as an outpatient. (4) Hyperkalemia Is this a current diagnosis for this admission?: Yes Plan: 07/31/2020-serum potassium is 5.5. The most likely secondary to lisinopril. Wh ich was on hold. (5) HTN (hypertension) Qualifiers: Hypertension type: essential hypertension Qualified Code(s): I10 - Essential (primary) hypertension Is this a current diagnosis for this admission?: No Plan: 07/31/2020-patient has history of chronic essential hypertension. Latest blood pressure is 148/82. Stable. (6) CVA (cerebral vascular accident) Is this a current diagnosis for this admission?: No Plan: 07/31/2020-patient history of CVA. Lives in assisted living. Uses a walker at the long-term care facility. - Time Anticipated Discharge Disposition: Shelter Care Facility Anticipated Discharge Timeframe: within 72 hours
[2020-08-01 09:20] LABS: ABSOLUTE EOSINOPHILS # (AUTO) 0.4 10^3/uL (0.0-0.6); ABSOLUTE LYMPHOCYTES (AUTO) 1.4 10^3/uL (0.5-4.7); ABSOLUTE MONOCYTES (AUTO) 0.3 10^3/uL (0.1-1.4); BASOPHILS % (AUTO) 0.9 % (0-2); EOSINOPHILS % (AUTO) 10.4 % (0-6); HEMATOCRIT 30.4 % (37.9-51.0); LYMPHOCYTES % (AUTO) 32.8 % (13-45); MEAN CORPUSCULAR HEMOGLOBIN 27.9 pg (27.0-33.4); MEAN CORPUSCULAR HGB CONC 32.8 g/dL (32.0-36.0); MEAN CORPUSCULAR VOLUME 85 fl (80-97); MONOCYTES % (AUTO) 8.4 % (3-13); PLATELET COUNT 165 10^3/uL (150-450); RED BLOOD COUNT 3.58 10^6/uL (4.35-5.55); RED CELL DISTRIBUTION WIDTH 14.4 % (11.5-14.0); SEGMENTED NEUTROPHILS % (AUTO) 47.5 % (42-78); TOTAL CELLS COUNTED % (AUTO) 100 %; WHITE BLOOD COUNT 4.1 10^3/uL (4.0-10.5)
[2020-08-01] MEDS: AMLODIPINE BESYLATE 10 MG TABLET PO SCH (09:24)
[2020-08-01] MEDS: FERROUS SULFATE 325 MG TABLET PO SCH (09:24)
[2020-08-01] MEDS: CEFTRIAXONE 1 GM/D5W RTU 1 GM/50 ML RTUPB IV SCH (09:24)
[2020-08-01] MEDS: ENOXAPARIN SODIUM INJ 30 MG/0.3 ML DISP.SYRIN SUBCUT SCH (09:25)
[2020-08-01] MEDS: GABAPENTIN 300 MG CAPSULE PO SCH ×2 (09:25→17:04)
[2020-08-01 09:30] LABS: INTERNATIONAL RATION (INR) 1.01; PROTHROMBIN TIME 13.5 SEC (11.4-15.4)
[2020-08-01 09:54] LABS: ALBUMIN 3.3 g/dL (3.5-5.0); ALKALINE PHOSPHATASE 84 U/L (38-126); AMYLASE 71 U/L (30-110); ANION GAP 10 (5-19); ASPARTATE AMINO TRANSFERASE 14 U/L (17-59); BILIRUBIN,DIRECT 0.2 mg/dL (0.0-0.4); BILIRUBIN,TOTAL 0.4 mg/dL (0.2-1.3); BLOOD UREA NITROGEN 30 mg/dL (7-20); CALCIUM 8.8 mg/dL (8.4-10.2); CARBON DIOXIDE 16 mmol/L (22-30); CHLORIDE 114 mmol/L (98-107); CHOLESTEROL 178.58 mg/dL (0-200); GLUCOSE 80 mg/dL (75-110); POTASSIUM 5.5 mmol/L (3.6-5.0); TRIGLYCERIDES 116 mg/dL (<150)
[2020-08-01] MEDS ORDERED: ENOXAPARIN SODIUM INJ 40 MG/0.4 ML DISP.SYRIN SUBCUT SCH (10:00)
[2020-08-01 10:04] LABS: DIRECT LDL 99 mg/dL (<100)
--- NOTE | 2020-08-01 10:12 | EKG REPORT ---
SEVERITY:- ABNORMAL ECG - SINUS RHYTHM IVCD, CONSIDER ATYPICAL RBBB : Confirmed by: Tone Soto MD 01-Aug-2020 10:11:53
[2020-08-01] MEDS ORDERED: SODIUM POLYSTYRENE SULFONATE 15 GM/60 ML PO ONE (11:52)
--- NOTE | 2020-08-01 13:38 | PDOC PROGRESS REPORT ---
Subjective Date:: 08/01/20 Subjective:: 60 year old male resident of assisted living, history of stroke, hypertension ca me to the emergency room with complaints of unable to take anything by mouth. Patient has a recent history of admission for upper GI bleed status post endoscopy was done at this time. Barium swallow was done in the emergency room indicated of narrowing of the distal esophagus. Contrast is going through the esophagus. Medical consult was called for admission for management of hyperkalemia, acute kidney injury. Dr. John agreed to see the patient as an outpatient in his office. [id number]-old male with history of stroke, hypertension admitted from [facility] because of the complaints of a decreased appetite and ESMER. Barium swallow indicates narrowing of the lower esophagus. Patient is on full liquid diet. He is refusing to eat at this time. ESMER resolving. Serum potassium is 5.5 to give Kayexalate. Reason For Visit: ESMER Physical Exam Vital Signs: Temp Pulse Resp BP Pulse Ox 97.8 F 84 17 162/95 H 99 08/01/20 11:24 08/01/20 11:24 08/01/20 11:24 08/01/20 11:24 08/01/20 11:24 Intake & Output 07/31/20 08/01/20 08/02/20 06:59 06:59 06:59 Intake Total 2000 1050 Output Total 200 Balance 1800 1050 Weight 56.6 kg General appearance: PRESENT: no acute distress, cooperative, thin Head exam: PRESENT: atraumatic Eye exam: PRESENT: PERRLA Mouth exam: PRESENT: moist, tongue midline Teeth exam: PRESENT: poor dentation Neck exam: ABSENT: carotid bruit, JVD, lymphadenopathy, thyromegaly Respiratory exam: PRESENT: decreased breath sounds Cardiovascular exam: PRESENT: RRR. ABSENT: diastolic murmur, rubs, systolic murmur GI/Abdominal exam: PRESENT: normal bowel sounds, soft. ABSENT: distended, guarding, mass, organolmegaly, rebound, tenderness Rectal exam: PRESENT: deferred Extremities exam: PRESENT: full ROM. ABSENT: calf tenderness, clubbing, pedal edema Neurological exam: PRESENT: alert, awake, oriented to person, oriented to place, oriented to time, oriented to situation, CN II-XII grossly intact. ABSENT: motor sensory deficit Psychiatric exam: PRESENT: appropriate affect, normal mood. ABSENT: homicidal ideation, suicidal ideation Results Laboratory Results: 08/01/20 08:51 08/01/20 08:51 07/31/20 08/01/20 08/01/20 14:10 08:51 08:51 WBC 4.1 RBC 3.58 L Hgb 10.0 L Hct 30.4 L MCV 85 MCH 27.9 MCHC 32.8 RDW 14.4 H Plt Count 165 Seg Neutrophils % 47.5 Sodium 139.7 Potassium 5.5 H Chloride 114 H Carbon Dioxide 16 L Anion Gap 10 BUN 30 H Creatinine 2.69 H Est GFR ( Amer) 29 L Glucose 80 Calcium 8.8 Magnesium 1.8 Total Bilirubin 0.4 AST 14 L Alkaline Phosphatase 84 Total Protein 6.0 L Albumin 3.3 L Triglycerides 116 Cholesterol 178.58 LDL Cholesterol Direct 99 VLDL Cholesterol 23.0 HDL Cholesterol 34 L Amylase 71 Lipase 81.0 TSH Urine Color YELLOW Urine Appearance SLIGHTLY-CLOUDY Urine pH 5.0 Ur Specific [place] 1.011 Urine Protein 100 H Urine Glucose (UA) NEGATIVE Urine Ketones TRACE H Urine Blood NEGATIVE Urine Nitrite NEGATIVE Ur Leukocyte Esterase MODERATE H Urine WBC (Auto) 36 Urine RBC (Auto) 1 08/01/20 08:51 WBC RBC Hgb Hct MCV MCH MCHC RDW Plt Count Seg Neutrophils % Sodium Potassium Chloride Carbon Dioxide Anion Gap BUN Creatinine Est GFR ( Amer) Glucose Calcium Magnesium Total Bilirubin AST Alkaline Phosphatase Total Protein Albumin Triglycerides Cholesterol LDL Cholesterol Direct VLDL Cholesterol HDL Cholesterol Amylase Lipase TSH 0.64 Urine Color Urine Appearance Urine pH Ur Specific [place] Urine Protein Urine Glucose (UA) Urine Ketones Urine Blood Urine Nitrite Ur Leukocyte Esterase Urine WBC (Auto) Urine RBC (Auto) 07/31/20 08/01/20 08/01/20 19:25 01:39 08:51 Troponin I < 0.012 < 0.012 < 0.012 NT-Pro-B Natriuret Pep 08/01/20 08:51 Troponin I NT-Pro-B Natriuret Pep 2100 H Impressions: Esophagus X-Ray 07/31/20 09:45 IMPRESSION: PERSISTENT NARROWING OF THE MID TO DISTAL 3RD ESOPHAGUS. SMALL HIATAL HERNIA WITH MARKED GASTROESOPHAGEAL REFLUX. Assessment and Plan - Diagnosis (1) Acute kidney injury superimposed on CKD Is this a current diagnosis for this admission?: Yes Plan: 07/31/2020-patient is going to be admitted to medical floor with a diagnosis of acute on chronic kidney injury. Started on IV fluids normal saline 75 cc/h. To recheck the labs tomorrow. 08/01/20-creatinine improved from 3.45-2.69. Kidney function is back to baseline. (2) UTI (urinary tract infection) Qualifiers: Urinary tract infection type: site unspecified Hematuria presence: without hematuria Qualified Code(s): N39.0 - Urinary tract infection, site not specified Is this a current diagnosis for this admission?: Yes Plan: 07/31/2020-urine analysis abnormal. Urine cultures blood cultures are pending. Started on IV Rocephin 1 g daily. 08/01/2020-urine culture is growing gram-negative rods. To continue IV Rocephin at this time. (3) Dysphagia Is this a current diagnosis for this admission?: Yes Plan: 07/31/2020-patient he has difficulty in eating or drinking. Came in with dehydration, hyperkalemia, acute on chronic kidney injury. To start him on full liquid diet's, rehydrated the patient, take care of the acute kidney injury and will make a follow-up visit with Dr. John as an outpatient. 08/01/2020-patient is encouraged to continue full liquid diet. (4) Hyperkalemia Is this a current diagnosis for this admission?: Yes Plan: 07/31/2020-serum potassium is 5.5. The most likely secondary to lisinopril. Which was on hold. 08/01/20-serum potassium is 5.5 to give Kayexalate today. (5) HTN (hypertension) Qualifiers: Hypertension type: essential hypertension Qualified Code(s): I10 - Essential (primary) hypertension Is this a current diagnosis for this admission?: No Plan: 07/31/2020-patient has history of chronic essential hypertension. Latest blood pressure is 148/82. Stable. 08/01/2020-blood pressure is 155/93. To start on labetalol as needed. (6) CVA (cerebral vascular accident) Is this a current diagnosis for this admission?: No Plan: 07/31/2020-patient history of CVA. Lives in assisted living. Uses a walker at the long-term care facility. - Time Anticipated Discharge Disposition: [facility] Anticipated Discharge Timeframe: within 72 hours
[2020-08-02] MEDS: ONDANSETRON HCL INJ/PF 4 MG/2 ML SDV IV PRN ×3 (00:37→17:17)
[2020-08-02] MEDS ORDERED: HYDRALAZINE HCL INJ/PF 20 MG/1 ML SDV IV ONE (04:30)
[2020-08-02] MEDS ORDERED: HYDRALAZINE HCL 25 MG TABLET PO ONE (05:00)
[2020-08-02] MEDS ORDERED: LABETALOL HCL INJ 20 MG/4 ML DISP.SYRIN IV ONE (05:15)
[2020-08-02] MEDS ORDERED: PROMETHAZINE HCL INJ 25 MG/1 ML VIAL IV ONE (05:15)
[2020-08-02] MEDS ORDERED: HYDRALAZINE HCL INJ/PF 20 MG/1 ML SDV IV PRN (07:38)
[2020-08-02] MEDS: METOPROLOL TARTRATE PF/INJ 5 MG/5 ML SDV IV PRN (08:17)
[2020-08-02] MEDS: CEFTRIAXONE 1 GM/D5W RTU 1 GM/50 ML RTUPB IV SCH (09:06)
[2020-08-02] MEDS: ENOXAPARIN SODIUM INJ 30 MG/0.3 ML DISP.SYRIN SUBCUT SCH (09:08)
[2020-08-02] MEDS: FERROUS SULFATE 325 MG TABLET PO SCH (09:08)
[2020-08-02] MEDS: GABAPENTIN 300 MG CAPSULE PO SCH (09:08)
[2020-08-02] MEDS: AMLODIPINE BESYLATE 10 MG TABLET PO SCH (09:08)
[2020-08-02] MEDS ORDERED: CITALOPRAM HYDROBROMIDE 20 MG TABLET PO SCH (10:00)
[2020-08-02] MEDS ORDERED: GLUCAGON,HUMAN RECOMB 1 MG INJ SUBCUT PRN (11:13)
[2020-08-02] MEDS ORDERED: DEXTROSE 50%-WATER 25 GM/50 ML DISP.SYRIN IV PRN ×2 (11:13)
[2020-08-02] MEDS ORDERED: DEXTROSE 40% GEL 15 GM TUBE PO PRN ×2 (11:13)
--- NOTE | 2020-08-02 11:25 | PDOC PROGRESS REPORT ---
Subjective Date:: 08/02/20 Subjective:: 60 year old male resident of assisted living, history of stroke, hypertension ca me to the emergency room with complaints of unable to take anything by mouth. Patient has a recent history of admission for upper GI bleed status post endoscopy was done at this time. Barium swallow was done in the emergency room indicated of narrowing of the distal esophagus. Contrast is going through the esophagus. Medical consult was called for admission for management of hyperkalemia, acute kidney injury. Dr. John agreed to see the patient as an outpatient in his office. 08/01/[id number]-jwuc-old male with history of stroke, hypertension admitted from [facility] because of the complaints of a decreased appetite and ESMER. Barium swallow indicates narrowing of the lower esophagus. Patient is on full liquid diet. He is refusing to eat at this time. ESMER resolving. Serum potassium is 5.5 to give Kayexalate. 08/02/[id number]-euwi-old male with history of stroke, hypertension admitted for dysphagia. Barium swallow in the ER shows narrowing of the esophagus and contrast in the stomach. Medical consult was called for admission for ESMER. Patient was hyperkalemic at the time of admission. Patient is refusing labs. After taking the medications this morning threw up black coffee colored liquid. Looks like upper GI bleed. Discussed the case with Dr. Harrison, patient has re cent upper GI scope few weeks ago. Recommendation is conservative management like keep him n.p.o., IV Protonix, pain management at this time. Stat CBC was requested. KUB was requested. Reason For Visit: ESMER Physical Exam Vital Signs: Temp Pulse Resp BP Pulse Ox 98.5 F 125 H 20 163/95 H 100 08/02/20 07:19 08/02/20 07:19 08/02/20 07:19 08/02/20 09:20 08/02/20 07:19 Intake & Output 08/01/20 08/02/20 08/03/20 06:59 06:59 06:59 Intake Total 2000 1230 Output Total 200 720 Balance 1800 510 Weight 56.6 kg 56.2 kg General appearance: PRESENT: no acute distress, cooperative Head exam: PRESENT: atraumatic Eye exam: PRESENT: conjunctiva pale, PERRLA Mouth exam: PRESENT: moist, tongue midline Teeth exam: PRESENT: poor dentation Neck exam: ABSENT: carotid bruit, JVD, lymphadenopathy, thyromegaly Respiratory exam: PRESENT: decreased breath sounds Cardiovascular exam: PRESENT: RRR. ABSENT: diastolic murmur, rubs, systolic murmur Pulses: PRESENT: normal dorsalis pedis pul GI/Abdominal exam: PRESENT: normal bowel sounds, soft. ABSENT: distended, guarding, mass, organolmegaly, rebound, tenderness Rectal exam: PRESENT: deferred Extremities exam: PRESENT: full ROM. ABSENT: calf tenderness, clubbing, pedal edema Neurological exam: PRESENT: alert, awake, oriented to person, oriented to place, oriented to time, oriented to situation, CN II-XII grossly intact. ABSENT: motor sensory deficit Psychiatric exam: PRESENT: appropriate affect, normal mood. ABSENT: homicidal ideation, suicidal ideation Results Laboratory Results: 08/01/20 08:51 08/01/20 08:51 07/31/20 16:32 Blood Blood Culture (PCR) - Final Staphylococcus Species 07/31/20 14:10 Clean Catch Midstream Urine Culture - Final Klebsiella Pneumoniae 07/31/20 08/01/20 08/01/20 19:25 01:39 08:51 Troponin I < 0.012 < 0.012 < 0.012 NT-Pro-B Natriuret Pep 08/01/20 08:51 Troponin I NT-Pro-B Natriuret Pep 2100 H Impressions: Esophagus X-Ray 07/31/20 09:45 IMPRESSION: PERSISTENT NARROWING OF THE MID TO DISTAL 3RD ESOPHAGUS. SMALL HIATAL HERNIA WITH MARKED GASTROESOPHAGEAL REFLUX. Assessment and Plan - Diagnosis (1) Acute kidney injury superimposed on CKD Is this a current diagnosis for this admission?: Yes Plan: 07/31/2020-patient is going to be admitted to medical floor with a diagnosis of acute on chronic kidney injury. Started on IV fluids normal saline 75 cc/h. To recheck the labs tomorrow. 08/01/20-creatinine improved from 3.45-2.69. Kidney function is back to baseline. 08/02/20-patient is refusing labs at this time. (2) UTI (urinary tract infection) Qualifiers: Urinary tract infection type: site unspecified Hematuria presence: without hematuria Qualified Code(s): N39.0 - Urinary tract infection, site not specified Is this a current diagnosis for this admission?: Yes Plan: 07/31/2020-urine analysis abnormal. Urine cultures blood cultures are pending. Started on IV Rocephin 1 g daily. 08/01/2020-urine culture is growing gram-negative rods. To continue IV Rocephin at this time. 08/02/2020-urine culture is positive for Klebsiella. Sensitive to Rocephin. (3) Dysphagia Is this a current diagnosis for this admission?: Yes Plan: 07/31/2020-patient he has difficulty in eating or drinking. Came in with dehydration, hyperkalemia, acute on chronic kidney injury. To start him on full liquid diet's, rehydrated the patient, take care of the acute kidney injury and will make a follow-up visit with Dr. John as an outpatient. 08/01/2020-patient is encouraged to continue full liquid diet. 08/02/2020-patient vomited black-colored liquid this morning. Patient was kept n.p.o. started on IV Protonix, CBC was requested KUB was requested. (4) Hyperkalemia Is this a current diagnosis for this admission?: Yes Plan: 07/31/2020-serum potassium is 5.5. The most likely secondary to lisinopril. Which was on hold. 08/01/20-serum potassium is 5.5 to give Kayexalate today. 08/02/2020-serum potassium is 5.5 patient is refusing labs. (5) HTN (hypertension) Qualifiers: Hypertension type: essential hypertension Qualified Code(s): I10 - Essential (primary) hypertension Is this a current diagnosis for this admission?: No Plan: 07/31/2020-patient has history of chronic essential hypertension. Latest blood pressure is 148/82. Stable. 08/01/2020-blood pressure is 155/93. To start on labetalol as needed. 08/02/2020-blood pressure this morning is 180/110. Patient is on IV hydralazine 10 mg every 6 hours as needed systolic blood pressure more than 170. (6) CVA (cerebral vascular accident) Is this a current diagnosis for this admission?: No Plan: 07/31/2020-patient history of CVA. Lives in assisted living. Uses a walker at the long-term care facility. (7) GI bleed Is this a current diagnosis for this admission?: Yes Plan: 08/02/2020-patient has one episode of large amount of emesis coffee colored. Started on IV Protonix, kept n.p.o., KUB was requested CBC was requested. Discussed the case with Dr. Harrison at this time conservative management was recommended because patient has a recent endoscopy indicated for duodenal ulcer. - Time Anticipated Discharge Disposition: Home, Self Care Anticipated Discharge Timeframe: within 72 hours
--- NOTE | 2020-08-02 12:45 | RADIOLOGY REPORT (SQ) ---
EXAM DESCRIPTION: KUB/ABDOMEN (SINGLE VIEW) IMAGES COMPLETED DATE/TIME: 08/02/2020 12:08 pm REASON FOR STUDY: n/v COMPARISON: None. NUMBER OF VIEWS: One view. TECHNIQUE: Supine radiographic image of the abdomen acquired. LIMITATIONS: None. FINDINGS: BOWEL GAS PATTERN: Retained oral contrast in multiple left-sided colonic diverticulae and the rectum related to CT examination dated 06/11/2020. CALCIFICATIONS: No suspicious calcifications. SOFT TISSUES: No gross mass or suggestion of organomegaly. HARDWARE: None in the abdomen. BONES: No acute fracture. No worrisome bone lesions. OTHER: No other significant finding. IMPRESSION: 1. Retained oral contrast in multiple left-sided colonic diverticulae related to CT exa mination dating back to 06/11/2020. Correlation suggested. 2. NO RADIOGRAPHIC EVIDENCE FOR ACUTE ABDOMINAL DISEASE. TECHNICAL DOCUMENTATION: JOB ID: [id number] 2010 [employer]- All Rights Reserved Reading location - IP/workstation name: [email or web address]
[2020-08-02 13:27] LABS: HEMATOCRIT 35.8 % (37.9-51.0); HEMOGLOBIN 11.7 g/dL (13.5-17.0); MEAN CORPUSCULAR HEMOGLOBIN 27.4 pg (27.0-33.4); MEAN CORPUSCULAR HGB CONC 32.7 g/dL (32.0-36.0); MEAN CORPUSCULAR VOLUME 84 fl (80-97); PLATELET COUNT 168 10^3/uL (150-450); RED BLOOD COUNT 4.28 10^6/uL (4.35-5.55); RED CELL DISTRIBUTION WIDTH 14.2 % (11.5-14.0)
[2020-08-02 14:18] LABS: WHITE BLOOD COUNT 9.6 10^3/uL (4.0-10.5)
[2020-08-02 14:20] LABS: ABSOLUTE LYMPHOCYTES# (MANUAL) 0.8 10^3/uL (0.5-4.7); BASOPHILS % (MANUAL) 0 % (0-2); EOSINOPHILS % (MANUAL) 0 % (0-6); LYMPHOCYTES % (MANUAL) 8 % (13-45); MONOCYTES % (MANUAL) 0 % (3-13); SEGMENTED NEUTROPHILS % (MAN) 92 % (42-78); TOTAL CELLS COUNTED 100
[2020-08-02 14:21] LABS: ANISOCYTOSIS SLIGHT; OVALOCYTES SLIGHT; PLATELET COMMENT ADEQUATE
[2020-08-02] MEDS: PANTOPRAZOLE SODIUM 40 MG VIAL IV SCH (23:49)
[2020-08-03 05:24] LABS: ABSOLUTE LYMPHOCYTES (AUTO) 0.7 10^3/uL (0.5-4.7); ABSOLUTE MONOCYTES (AUTO) 0.6 10^3/uL (0.1-1.4); ABSOLUTE NEUT (AUTO) 11.6 10^3/uL (1.7-8.2); BASOPHILS % (AUTO) 0.1 % (0-2); HEMATOCRIT 33.3 % (37.9-51.0); HEMOGLOBIN 10.9 g/dL (13.5-17.0); LYMPHOCYTES % (AUTO) 5.7 % (13-45); MEAN CORPUSCULAR HEMOGLOBIN 27.6 pg (27.0-33.4); MEAN CORPUSCULAR HGB CONC 32.9 g/dL (32.0-36.0); MEAN CORPUSCULAR VOLUME 84 fl (80-97); MONOCYTES % (AUTO) 4.9 % (3-13); PLATELET COUNT 186 10^3/uL (150-450); RED BLOOD COUNT 3.97 10^6/uL (4.35-5.55); RED CELL DISTRIBUTION WIDTH 14.7 % (11.5-14.0); SEGMENTED NEUTROPHILS % (AUTO) 89.3 % (42-78); TOTAL CELLS COUNTED % (AUTO) 100 %; WHITE BLOOD COUNT 12.9 10^3/uL (4.0-10.5)
[2020-08-03 09:07] LABS: ALKALINE PHOSPHATASE 95 U/L (38-126); ANION GAP 14 (5-19); ASPARTATE AMINO TRANSFERASE 15 U/L (17-59); BILIRUBIN,DIRECT 0.3 mg/dL (0.0-0.4); BILIRUBIN,TOTAL 0.4 mg/dL (0.2-1.3); BLOOD UREA NITROGEN 61 mg/dL (7-20); CALCIUM 9.6 mg/dL (8.4-10.2); CARBON DIOXIDE 16 mmol/L (22-30); CHLORIDE 118 mmol/L (98-107); GLUCOSE 160 mg/dL (75-110); POTASSIUM 4.7 mmol/L (3.6-5.0); TOTAL PROTEIN 6.8 g/dL (6.3-8.2)
[2020-08-03] MEDS: FERROUS SULFATE 325 MG TABLET PO SCH (10:55)
[2020-08-03] MEDS: PANTOPRAZOLE SODIUM 40 MG VIAL IV SCH ×2 (10:55→22:09)
[2020-08-03] MEDS: CEFTRIAXONE 1 GM/D5W RTU 1 GM/50 ML RTUPB IV SCH (10:55)
[2020-08-03] MEDS ORDERED: DEXTROSE 40% GEL 15 GM TUBE PO PRN ×2 (11:46)
[2020-08-03] MEDS ORDERED: DEXTROSE 50%-WATER 25 GM/50 ML DISP.SYRIN IV PRN ×2 (11:46)
[2020-08-03] MEDS ORDERED: GLUCAGON,HUMAN RECOMB 1 MG INJ IM PRN (11:46)
[2020-08-03] MEDS ORDERED: HYDRALAZINE HCL INJ/PF 20 MG/1 ML SDV IV PRN (11:52)
--- NOTE | 2020-08-03 11:54 | PDOC PROGRESS REPORT ---
Subjective Date:: 08/03/20 Subjective:: 60 year old male resident of assisted living, history of stroke, hypertension ca me to the emergency room with complaints of unable to take anything by mouth. Patient has a recent history of admission for upper GI bleed status post endoscopy was done at this time. Barium swallow was done in the emergency room indicated of narrowing of the distal esophagus. Contrast is going through the esophagus. Medical consult was called for admission for management of hyperkalemia, acute kidney injury. Dr. John agreed to see the patient as an outpatient in his office. 08/01/[id number]-abxh-old male with history of stroke, hypertension admitted from [facility] because of the complaints of a decreased appetite and ESMER. Barium swallow indicates narrowing of the lower esophagus. Patient is on full liquid diet. He is refusing to eat at this time. ESMER resolving. Serum potassium is 5.5 to give Kayexalate. 08/02/[id number]-dlbu-old male with history of stroke, hypertension admitted for dysphagia. Barium swallow in the ER shows narrowing of the esophagus and contrast in the stomach. Medical consult was called for admission for ESMER. Patient was hyperkalemic at the time of admission. Patient is refusing labs. After taking the medications this morning threw up black coffee colored liquid. Looks like upper GI bleed. Discussed the case with Dr. Harrison, patient has re cent upper GI scope few weeks ago. Recommendation is conservative management like keep him n.p.o., IV Protonix, pain management at this time. Stat CBC was requested. KUB was requested. 08/03/[id number]-jhom-old male with history of stroke, hypertension admitted for dysphagia. Barium swallow in the ER shows narrowing of the lower esophagus but contrast is seen in the stomach. Medical consult was called for admission for rehydration. Yesterday patient threw up black-colored liquid on taking the pills. He was kept n.p.o., started on IV Protonix 40 mg twice a day. Lovenox was discontinued. Hemoglobin is 10.9 this morning. Patient is still passing black-colored stools. Plan is to keep him n.p.o. today and to start him on IV fluids normal saline at 75 cc/h, creatinine this morning is 3.43. Plan is to start him on full liquid diet tomorrow if he is unable to tolerate the full liquid diet plan is to reconsult surgical team. Reason For Visit: ESMER Physical Exam Vital Signs: Temp Pulse Resp BP Pulse Ox 98.3 F 115 H 16 138/91 H 99 08/03/20 08:00 08/03/20 08:00 08/03/20 08:00 08/03/20 08:00 08/03/20 08:00 Intake & Output 08/02/20 08/03/20 08/04/20 06:59 06:59 06:59 Intake Total 1230 50 Output Total 720 1100 Balance 510 -1050 Weight 56.2 kg 56.2 kg General appearance: PRESENT: no acute distress, cooperative, disheveled, thin Head exam: PRESENT: atraumatic Eye exam: PRESENT: PERRLA Ear exam: PRESENT: normal external ear exam Mouth exam: PRESENT: moist, tongue midline Teeth exam: PRESENT: poor dentation Neck exam: ABSENT: carotid bruit, JVD, lymphadenopathy, thyromegaly Respiratory exam: PRESENT: decreased breath sounds Cardiovascular exam: PRESENT: RRR. ABSENT: diastolic murmur, rubs, systolic murmur GI/Abdominal exam: PRESENT: normal bowel sounds, soft. ABSENT: distended, guarding, mass, organolmegaly, rebound, tenderness Rectal exam: PRESENT: deferred Extremities exam: PRESENT: full ROM. ABSENT: calf tenderness, clubbing, pedal edema Neurological exam: PRESENT: alert, awake, oriented to person, oriented to place, oriented to time, oriented to situation, other - Patient has a right-sided weakness.. ABSENT: motor sensory deficit Psychiatric exam: PRESENT: appropriate affect, normal mood. ABSENT: homicidal ideation, suicidal ideation Results Laboratory Results: 08/03/20 03:57 08/03/20 08:01 08/02/20 08/02/20 08/03/20 11:57 13:09 03:57 WBC Cancelled 9.6 D 12.9 H RBC Cancelled 4.28 L 3.97 L Hgb Cancelled 11.7 L 10.9 L Hct Cancelled 35.8 L 33.3 L MCV Cancelled 84 84 MCH Cancelled 27.4 27.6 MCHC Cancelled 32.7 32.9 RDW Cancelled 14.2 H 14.7 H Plt Count Cancelled 168 186 Seg Neutrophils % Cancelled Not Reportable 89.3 H Sodium Potassium Chloride Carbon Dioxide Anion Gap BUN Creatinine Est GFR ( Amer) Glucose Calcium Total Bilirubin AST Alkaline Phosphatase Total Protein Albumin 08/03/20 08:01 WBC RBC Hgb Hct MCV MCH MCHC RDW Plt Count Seg Neutrophils % Sodium 148.4 H Potassium 4.7 Chloride 118 H Carbon Dioxide 16 L Anion Gap 14 BUN 61 H Creatinine 3.43 H Est GFR ( Amer) 22 L Glucose 160 H Calcium 9.6 Total Bilirubin 0.4 AST 15 L Alkaline Phosphatase 95 Total Protein 6.8 Albumin 4.0 07/31/20 08/01/20 08/01/20 19:25 01:39 08:51 Troponin I < 0.012 < 0.012 < 0.012 NT-Pro-B Natriuret Pep 08/01/20 08:51 Troponin I NT-Pro-B Natriuret Pep 2100 H Impressions: Esophagus X-Ray 07/31/20 09:45 IMPRESSION: PERSISTENT NARROWING OF THE MID TO DISTAL 3RD ESOPHAGUS. SMALL HIATAL HERNIA WITH MARKED GASTROESOPHAGEAL REFLUX. KUB X-Ray 08/02/20 00:00 IMPRESSION: 1. Retained oral contrast in multiple left-sided colonic diverticulae related to CT examination dating back to 06/11/2020. Correlation suggested. 2. NO RADIOGRAPHIC EVIDENCE FOR ACUTE ABDOMINAL DISEASE. Assessment and Plan - Diagnosis (1) Acute kidney injury superimposed on CKD Is this a current diagnosis for this admission?: Yes Plan: 07/31/2020-patient is going to be admitted to medical floor with a diagnosis of acute on chronic kidney injury. Started on IV fluids normal saline 75 cc/h. To recheck the labs tomorrow. 08/01/20-creatinine improved from 3.45-2.69. Kidney function is back to basel ine. 08/02/20-patient is refusing labs at this time. 08/03/2019-serum creatinine today is 3.43. Jumped from 2.6. Started on IV fluids normal saline at 75 cc/h. To recheck the labs tomorrow. (2) UTI (urinary tract infection) Qualifiers: Urinary tract infection type: site unspecified Hematuria presence: without hematuria Qualified Code(s): N39.0 - Urinary tract infection, site not specified Is this a current diagnosis for this admission?: Yes Plan: 07/31/2020-urine analysis abnormal. Urine cultures blood cultures are pending. Started on IV Rocephin 1 g daily. 08/01/2020-urine culture is growing gram-negative rods. To continue IV Rocephin at this time. 08/02/2020-urine culture is positive for Klebsiella. Sensitive to Rocephin. 08/03/2019-urine culture is positive for Klebsiella. On Rocephin. Afebrile. Plan is to continue the antibiotic therapy at this time. (3) Dysphagia Is this a current diagnosis for this admission?: Yes Plan: 07/31/2020-patient he has difficulty in eating or drinking. Came in with dehydration, hyperkalemia, acute on chronic kidney injury. To start him on full liquid diet's, rehydrated the patient, take care of the acute kidney injury and will make a follow-up visit with Dr. John as an outpatient. 08/01/2020-patient is encouraged to continue full liquid diet. 08/02/2020-patient vomited black-colored liquid this morning. Patient was kept n.p.o. started on IV Protonix, CBC was requested KUB was requested. 08/03/2020-patient will be kept n.p.o. On IV Protonix 40 mg twice a day. Hemoglobin is stable. KUB negative for acute pathology. To repeat the labs tomorrow. To try full liquid diet tomorrow if the patient is unable to tolerate, plan is to reconsult surgical team. (4) Hyperkalemia Is this a current diagnosis for this admission?: Yes Plan: 07/31/2020-serum potassium is 5.5. The most likely secondary to lisinopril. Which was on hold. 08/01/20-serum potassium is 5.5 to give Kayexalate today. 08/02/2020-serum potassium is 5.5 patient is refusing labs. 08/03/2019-serum potassium today is 4.7. Hyperkalemia resolving. (5) HTN (hypertension) Qualifiers: Hypertension type: essential hypertension Qualified Code(s): I10 - Essential (primary) hypertension Is this a current diagnosis for this admission?: No Plan: 07/31/2020-patient has history of chronic essential hypertension. Latest blood pressure is 148/82. Stable. 08/01/2020-blood pressure is 155/93. To start on labetalol as needed. 08/02/2020-blood pressure this morning is 180/110. Patient is on IV hydralazine 10 mg every 6 hours as needed systolic blood pressure more than 170. 08/03/2019-blood pressure this morning is 137/97. To continue IV hydralazine 10 mg every 6 hours as needed for systolic blood pressure more than 170. To hold p .o. medications at this time. (6) CVA (cerebral vascular accident) Is this a current diagnosis for this admission?: No Plan: 07/31/2020-patient history of CVA. Lives in assisted living. Uses a walker at the [facility]. 08/03/2020-patient has history of CVA with right-sided weakness. (7) GI bleed Is this a current diagnosis for this admission?: Yes Plan: 08/02/2020-patient has one episode of large amount of emesis coffee colored. Started on IV Protonix, kept n.p.o., KUB was requested CBC was requested. Discussed the case with Dr. Harrison at this time conservative management was recommended because patient has a recent endoscopy indicated for duodenal ulcer. 08/03/2019-patient has history of upper GI bleed, recent history of endoscopy fo und to have duodenal ulcer. Yesterday he vomited coffee colored material. Hemoglobin is stable. Patient is n.p.o. at this time, start on IV Protonix 40 mg twice a day. Patient is n.p.o. Lovenox is discontinued. - Time Anticipated Discharge Disposition: [facility] Anticipated Discharge Timeframe: within 72 hours
[2020-08-03] MEDS: INSULIN REG, HUMAN 100 UNIT/ML 3 ML VIAL (PYX) SUBCUT SCH ×2 (13:22→18:03)
[2020-08-03] MEDS: NORMAL SALINE 1000 ML 1,000 ML IV PRN (13:24)
[2020-08-03] MEDS: ONDANSETRON HCL INJ/PF 4 MG/2 ML SDV IV PRN (21:17)
[2020-08-04] MEDS: INSULIN REG, HUMAN 100 UNIT/ML 3 ML VIAL (PYX) SUBCUT SCH ×5 (00:04→22:08)
[2020-08-04] MEDS: ONDANSETRON HCL INJ/PF 4 MG/2 ML SDV IV PRN ×2 (02:32→22:14)
[2020-08-04] MEDS: NORMAL SALINE 1000 ML 1,000 ML IV PRN (02:32)
[2020-08-04 06:09] LABS: ABSOLUTE LYMPHOCYTES (AUTO) 0.9 10^3/uL (0.5-4.7); ABSOLUTE MONOCYTES (AUTO) 0.8 10^3/uL (0.1-1.4); BASOPHILS % (AUTO) 0.2 % (0-2); HEMOGLOBIN 10.3 g/dL (13.5-17.0); LYMPHOCYTES % (AUTO) 6.3 % (13-45); MEAN CORPUSCULAR HEMOGLOBIN 27.9 pg (27.0-33.4); MEAN CORPUSCULAR HGB CONC 33.1 g/dL (32.0-36.0); MEAN CORPUSCULAR VOLUME 84 fl (80-97); PLATELET COUNT 174 10^3/uL (150-450); RED BLOOD COUNT 3.68 10^6/uL (4.35-5.55); RED CELL DISTRIBUTION WIDTH 14.9 % (11.5-14.0); SEGMENTED NEUTROPHILS % (AUTO) 87.5 % (42-78); TOTAL CELLS COUNTED % (AUTO) 100 %; WHITE BLOOD COUNT 13.7 10^3/uL (4.0-10.5)
[2020-08-04] MEDS: METOPROLOL TARTRATE PF/INJ 5 MG/5 ML SDV IV PRN ×3 (06:13→12:16)
[2020-08-04 06:26] LABS: ALBUMIN 3.6 g/dL (3.5-5.0); ALKALINE PHOSPHATASE 88 U/L (38-126); ANION GAP 13 (5-19); ASPARTATE AMINO TRANSFERASE 16 U/L (17-59); BILIRUBIN,DIRECT 0.3 mg/dL (0.0-0.4); BILIRUBIN,TOTAL 0.3 mg/dL (0.2-1.3); BLOOD UREA NITROGEN 66 mg/dL (7-20); CALCIUM 9.3 mg/dL (8.4-10.2); CARBON DIOXIDE 17 mmol/L (22-30); CHLORIDE 120 mmol/L (98-107); GLUCOSE 138 mg/dL (75-110); POTASSIUM 4.2 mmol/L (3.6-5.0); TOTAL PROTEIN 6.5 g/dL (6.3-8.2)
[2020-08-04] MEDS ORDERED: LOPERAMIDE HCL 2 MG CAPSULE PO ONE (09:30)
[2020-08-04] MEDS: PANTOPRAZOLE SODIUM 40 MG VIAL IV SCH ×2 (09:41→22:08)
[2020-08-04] MEDS: CEFTRIAXONE 1 GM/D5W RTU 1 GM/50 ML RTUPB IV SCH (09:41)
[2020-08-04] MEDS: NIFEDIPINE 30 MG TAB.ER.24 PO SCH (15:27)
[2020-08-04] MEDS: 1/2 NORMAL SALINE 1,000 ML IV PRN (15:31)
--- NOTE | 2020-08-04 15:45 | PDOC PROGRESS REPORT ---
Subjective Date:: 08/04/20 Subjective:: No adverse events overnight. No new complaints. He says he can drink water but cannot pass anything thicker than that, he was agreeable to clear liquids today. He has had good urine output. Blood pressure has been elevated since he has been off his home medications. Reason For Visit: ESMER Physical Exam Vital Signs: Temp Pulse Resp BP Pulse Ox 97.4 F 109 H 16 178/106 H 95 08/04/20 07:51 08/04/20 11:54 08/04/20 11:54 08/04/20 13:35 08/04/20 11:54 Intake & Output 08/03/20 08/04/20 08/05/20 06:59 06:59 06:59 Intake Total 50 1035 Output Total 1100 300 550 Balance -1050 735 -550 Weight 56.2 kg 56.2 kg General appearance: PRESENT: no acute distress, cooperative, disheveled, thin Respiratory exam: PRESENT: decreased breath sounds Cardiovascular exam: PRESENT: RRR. ABSENT: diastolic murmur, rubs, systolic murmur GI/Abdominal exam: PRESENT: normal bowel sounds, soft. ABSENT: distended, guarding, mass, organolmegaly, rebound, tenderness Extremities exam: PRESENT: full ROM. ABSENT: calf tenderness, clubbing, pedal edema Neurological exam: PRESENT: alert, awake, oriented to person, oriented to place, oriented to time, oriented to situation, other - Patient has a chronic right- sided weakness. Psychiatric exam: PRESENT: appropriate affect, normal mood. Results Laboratory Results: 08/04/20 04:42 08/04/20 04:42 08/04/20 08/04/20 04:42 04:42 WBC 13.7 H RBC 3.68 L Hgb 10.3 L Hct 31.0 L MCV 84 MCH 27.9 MCHC 33.1 RDW 14.9 H Plt Count 174 Seg Neutrophils % 87.5 H Sodium 150.0 H Potassium 4.2 Chloride 120 H Carbon Dioxide 17 L Anion Gap 13 BUN 66 H Creatinine 3.19 H Est GFR ( Amer) 24 L Glucose 138 H Calcium 9.3 Magnesium 2.0 Total Bilirubin 0.3 AST 16 L Alkaline Phosphatase 88 Total Protein 6.5 Albumin 3.6 07/31/20 16:32 Blood Blood Culture (PCR) - Final Staphylococcus Species 07/31/20 16:32 Blood Blood Culture - Final Staphylococcus Epidermidis 07/31/20 08/01/20 08/01/20 19:25 01:39 08:51 Troponin I < 0.012 < 0.012 < 0.012 NT-Pro-B Natriuret Pep 08/01/20 08:51 Troponin I NT-Pro-B Natriuret Pep 2100 H Impressions: Esophagus X-Ray 07/31/20 09:45 IMPRESSION: PERSISTENT NARROWING OF THE MID TO DISTAL 3RD ESOPHAGUS. SMALL HIATAL HERNIA WITH MARKED GASTROESOPHAGEAL REFLUX. KUB X-Ray 08/02/20 00:00 IMPRESSION: 1. Retained oral contrast in multiple left-sided colonic diverticulae related to CT examination dating back to 06/11/2020. Correlation suggested. 2. NO RADIOGRAPHIC EVIDENCE FOR ACUTE ABDOMINAL DISEASE. Assessment and Plan - Diagnosis (1) Acute on chronic renal failure Qualifiers: Acute renal failure type: unspecified Chronic kidney disease stage: stage 4 (severe) Qualified Code(s): N17.9 - Acute kidney failure, unspecified; N18.4 - Chronic kidney disease, stage 4 (severe) Is this a current diagnosis for this admission?: Yes (2) Acute hyperkalemia Is this a current diagnosis for this admission?: Yes (3) Dehydration Is this a current diagnosis for this admission?: Yes (4) Dysphagia Qualifiers: Dysphagia type: esophageal phase Qualified Code(s): R13.10 - Dysphagia, unspecified Is this a current diagnosis for this admission?: Yes (5) Hiatal hernia with gastroesophageal reflux disease and esophagitis Is this a current diagnosis for this admission?: Yes (6) UTI (urinary tract infection) Qualifiers: Urinary tract infection type: acute cystitis Hematuria presence: without hematuria Qualified Code(s): N30.00 - Acute cystitis without hematuria Is this a current diagnosis for this admission?: Yes (7) Diabetes Qualifiers: Diabetes mellitus type: type 2 Diabetes mellitus manager intermediate insulin use: unspecified usp insulin use status Diabetes mellitus complication sta tus: with neurologic complications Diabetes mellitus complication detail: with unspecified neuropathy Qualified Code(s): E11.40 - Type 2 diabetes mellitus with diabetic neuropathy, unspecified Is this a current diagnosis for this admission?: Yes (8) HTN (hypertension) Qualifiers: Hypertension type: essential hypertension Qualified Code(s): I10 - Essential (primary) hypertension Is this a current diagnosis for this admission?: Yes (9) History of CVA (cerebrovascular accident) Is this a current diagnosis for this admission?: Yes - Plan Summary Summary: His sodium was trending up and so we will change his IV fluid to half-normal saline. Creatinine is slowly trending down, as is BUN. We have started him on clear liquids and will give him some nifedipine for his blood pressure. If he is unable to tolerate clears, we may have to get surgery involved in this case again. He continues on Protonix twice daily. - Time Time Spent with patient: 15-24 minutes Anticipated Discharge Disposition: Unknown Anticipated Discharge Timeframe: Unknown
[2020-08-04] MEDS ORDERED: INSULIN REG, HUMAN 100 UNIT/ML 3 ML VIAL (PYX) SUBCUT PRN (16:29)
[2020-08-04] MEDS ORDERED: INSULIN REG, HUMAN 100 UNIT/ML 3 ML VIAL (PYX) SUBCUT SCH (22:00)
[2020-08-05] MEDS: METOPROLOL TARTRATE PF/INJ 5 MG/5 ML SDV IV PRN (02:40)
[2020-08-05] MEDS: 1/2 NORMAL SALINE 1,000 ML IV PRN ×2 (05:37→20:52)
[2020-08-05] MEDS: INSULIN REG, HUMAN 100 UNIT/ML 3 ML VIAL (PYX) SUBCUT SCH ×4 (08:00→22:33)
[2020-08-05] MEDS: PANTOPRAZOLE SODIUM 40 MG VIAL IV SCH (10:37)
[2020-08-05] MEDS: CEFTRIAXONE 1 GM/D5W RTU 1 GM/50 ML RTUPB IV SCH (10:38)
[2020-08-05] MEDS: NIFEDIPINE 30 MG TAB.ER.24 PO SCH (10:38)
[2020-08-05 13:31] LABS: ANION GAP 8 (5-19); BLOOD UREA NITROGEN 48 mg/dL (7-20); CALCIUM 8.3 mg/dL (8.4-10.2); CARBON DIOXIDE 18 mmol/L (22-30); CHLORIDE 117 mmol/L (98-107); GLUCOSE 126 mg/dL (75-110); POTASSIUM 3.7 mmol/L (3.6-5.0)
[2020-08-05] MEDS: NIFEDIPINE 10 MG CAPSULE PO SCH ×2 (15:34→22:47)
--- NOTE | 2020-08-05 17:38 | PDOC PROGRESS REPORT ---
Subjective Date:: 08/05/20 Subjective:: No adverse events overnight. We gave him a dose of nifedipine for his blood pre ssure yesterday and had good effect. Today he says he cannot swallow the pill, and is trying to tell me he cannot swallow any water, but I can see where he has drank some of the fluids on his tray, and there have not been any reports of any emesis. His recent barium esophagram showed that he did have a distal stricture but liquids can pass. Reason For Visit: ESMER Physical Exam Vital Signs: Temp Pulse Resp BP Pulse Ox 97.3 F 111 H 17 127/67 H 100 08/05/20 16:13 08/05/20 16:13 08/05/20 16:13 08/05/20 16:13 08/05/20 16:13 Intake & Output 08/04/20 08/05/20 08/06/20 06:59 06:59 06:59 Intake Total 1035 3000 Output Total 300 1750 Balance 735 1250 Weight 56.2 kg 56.2 kg General appearance: PRESENT: no acute distress, cooperative, disheveled, thin Respiratory exam: PRESENT: decreased breath sounds Cardiovascular exam: PRESENT: RRR. ABSENT: diastolic murmur, rubs, systolic murmur GI/Abdominal exam: PRESENT: normal bowel sounds, soft. ABSENT: distended, gu arding, mass, organolmegaly, rebound, tenderness Extremities exam: PRESENT: full ROM. ABSENT: calf tenderness, clubbing, pedal edema Neurological exam: PRESENT: alert, awake, oriented to person, oriented to place, oriented to time, oriented to situation, other - Patient has a chronic right- sided weakness. Psychiatric exam: PRESENT: appropriate affect, normal mood. Results Laboratory Results: 08/04/20 04:42 08/05/20 12:34 08/05/20 12:34 Sodium 143.3 Potassium 3.7 Chloride 117 H Carbon Dioxide 18 L Anion Gap 8 BUN 48 H Creatinine 2.61 H Est GFR ( Amer) 30 L Glucose 126 H Calcium 8.3 L 07/31/20 08/01/20 08/01/20 19:25 01:39 08:51 Troponin I < 0.012 < 0.012 < 0.012 NT-Pro-B Natriuret Pep 08/01/20 08:51 Troponin I NT-Pro-B Natriuret Pep 2100 H Impressions: Esophagus X-Ray 07/31/20 09:45 IMPRESSION: PERSISTENT NARROWING OF THE MID TO DISTAL 3RD ESOPHAGUS. SMALL HIATAL HERNIA WITH MARKED GASTROESOPHAGEAL REFLUX. KUB X-Ray 08/02/20 00:00 IMPRESSION: 1. Retained oral contrast in multiple left-sided colonic dive rticulae related to CT examination dating back to 06/11/2020. Correlation suggested. 2. NO RADIOGRAPHIC EVIDENCE FOR ACUTE ABDOMINAL DISEASE. Assessment and Plan - Diagnosis (1) Acute on chronic renal failure Qualifiers: Acute renal failure type: unspecified Chronic kidney disease stage: stage 4 (severe) Qualified Code(s): N17.9 - Acute kidney failure, unspecified; N18.4 - Chronic kidney disease, stage 4 (severe) Is this a current diagnosis for this admission?: Yes (2) Acute hyperkalemia Is this a current diagnosis for this admission?: Yes (3) Dehydration Is this a current diagnosis for this admission?: Yes (4) Dysphagia Qualifiers: Dysphagia type: esophageal phase Qualified Code(s): R13.10 - Dysphagia, unspecified Is this a current diagnosis for this admission?: Yes (5) Hiatal hernia with gastroesophageal reflux disease and esophagitis Is this a current diagnosis for this admission?: Yes (6) UTI (urinary tract infection) Qualifiers: Urinary tract infection type: acute cystitis Hematuria presence: without hematuria Qualified Code(s): N30.00 - Acute cystitis without hematuria Is this a current diagnosis for this admission?: Yes (7) Diabetes Qualifiers: Diabetes mellitus type: type 2 Diabetes mellitus half-way insulin use: unspecified half-way insulin use status Diabetes mellitus complication status: with neurologic complications Diabetes mellitus complication detail: with unspecified neuropathy Qualified Code(s): E11.40 - Type 2 diabetes mellitus with diabetic neuropathy, unspecified Is this a current diagnosis for this admission?: Yes (8) HTN (hypertension) Qualifiers: Hypertension type: essential hypertension Qualified Code(s): I10 - Essential (primary) hypertension Is this a current diagnosis for this admission?: Yes (9) History of CVA (cerebrovascular accident) Is this a current diagnosis for this admission?: Yes - Plan Summary Summary: His sodium was trending up and so we switched him to half-normal saline, and his sodium is now normal. His creatinine is very close to his baseline. BUN continues to trend down. I have switched his Procardia XL to a once a day fo rmulation, which is in a capsule that can be dissolved in water and drink. He continues on Protonix twice daily. I have encouraged him to continue with liquids and to try to drink meal replacement shakes like Ensure. We will have him follow-up outpatient with surgery for his stricture. - Time Time Spent with patient: 15-24 minutes Anticipated Discharge Disposition: Unknown Anticipated Discharge Timeframe: Unknown
[2020-08-06 05:18] LABS: ANION GAP 7 (5-19); BLOOD UREA NITROGEN 41 mg/dL (7-20); CALCIUM 8.5 mg/dL (8.4-10.2); CARBON DIOXIDE 21 mmol/L (22-30); CHLORIDE 114 mmol/L (98-107); GLUCOSE 125 mg/dL (75-110); POTASSIUM 4.1 mmol/L (3.6-5.0)
[2020-08-06] MEDS: ONDANSETRON HCL INJ/PF 4 MG/2 ML SDV IV PRN (06:28)
[2020-08-06] MEDS: NIFEDIPINE 10 MG CAPSULE PO SCH ×3 (06:31→22:27)
[2020-08-06] MEDS: INSULIN REG, HUMAN 100 UNIT/ML 3 ML VIAL (PYX) SUBCUT SCH ×4 (09:07→22:24)
[2020-08-06] MEDS: CEFTRIAXONE 1 GM/D5W RTU 1 GM/50 ML RTUPB IV SCH (09:12)
[2020-08-06] MEDS ORDERED: NIFEDIPINE 10 MG CAPSULE PO ONE (09:45)
[2020-08-06] MEDS: 1/2 NORMAL SALINE 1,000 ML IV PRN (13:30)
--- NOTE | 2020-08-06 16:49 | PDOC PROGRESS REPORT ---
Subjective Date:: 08/06/20 Subjective:: No adverse events overnight. No new complaints. Vital signs been stable. Ever y day he says he cannot swallow, but he can swallow water and liquids. Reason For Visit: ESMER Physical Exam Vital Signs: Temp Pulse Resp BP Pulse Ox 98.4 F 96 17 148/87 H 100 08/06/20 11:33 08/06/20 14:46 08/06/20 11:33 08/06/20 14:46 08/06/20 11:33 Intake & Output 08/05/20 08/06/20 08/07/20 06:59 06:59 06:59 Intake Total 3000 1200 1168 Output Total 1750 1775 225 Balance 1250 -575 943 Weight 56.2 kg 56.2 kg 56.2 kg General appearance: PRESENT: no acute distress, cooperative, disheveled, thin Respiratory exam: PRESENT: decreased breath sounds Cardiovascular exam: PRESENT: RRR. ABSENT: diastolic murmur, rubs, systolic murmur GI/Abdominal exam: PRESENT: normal bowel sounds, soft. ABSENT: distended, guarding, mass, organolmegaly, rebound, tenderness Extremities exam: PRESENT: full ROM. ABSENT: calf tenderness, clubbing, pedal edema Neurological exam: PRESENT: alert, awake, oriented to person, oriented to place, oriented to time, oriented to situation, other - Patient has a chronic right- sided weakness. Psychiatric exam: PRESENT: appropriate affect, normal mood. Results Laboratory Results: 08/04/20 04:42 08/06/20 03:45 08/06/20 03:45 Sodium 142.3 Potassium 4.1 Chloride 114 H Carbon Dioxide 21 L Anion Gap 7 BUN 41 H Creatinine 2.54 H Est GFR ( Amer) 31 L Glucose 125 H Calcium 8.5 07/31/20 18:40 Blood Blood Culture - Final NO GROWTH IN 5 DAYS 07/31/20 08/01/20 08/01/20 19:25 01:39 08:51 Troponin I < 0.012 < 0.012 < 0.012 NT-Pro-B Natriuret Pep 08/01/20 08:51 Troponin I NT-Pro-B Natriuret Pep 2100 H Impressions: Esophagus X-Ray 07/31/20 09:45 IMPRESSION: PERSISTENT NARROWING OF THE MID TO DISTAL 3RD ESOPHAGUS. SMALL HIATAL HERNIA WITH MARKED GASTROESOPHAGEAL REFLUX. KUB X-Ray 08/02/20 00:00 IMPRESSION: 1. Retained oral contrast in multiple left-sided colonic diverticulae related to CT examination dating back to 06/11/2020. Correlation suggested. 2. NO RADIOGRAPHIC EVIDENCE FOR ACUTE ABDOMINAL DISEASE. Assessment and Plan - Diagnosis (1) Acute on chronic renal failure Qualifiers: Acute renal failure type: unspecified Chronic kidney disease stage: stage 4 (severe) Qualified Code(s): N17.9 - Acute kidney failure, unspecified; N18.4 - Chronic kidney disease, stage 4 (severe) Is this a current diagnosis for this admission?: Yes (2) Acute hyperkalemia Is this a current diagnosis for this admission?: Yes (3) Dehydration Is this a current diagnosis for this admission?: Yes (4) Dysphagia Qualifiers: Dysphagia type: esophageal phase Qualified Code(s): R13.10 - Dysphagia, unspecified Is this a current diagnosis for this admission?: Yes (5) Hiatal hernia with gastroesophageal reflux disease and esophagitis Is this a current diagnosis for this admission?: Yes (6) UTI (urinary tract infection) Qualifiers: Urinary tract infection type: acute cystitis Hematuria presence: without hematuria Qualified Code(s): N30.00 - Acute cystitis without hematuria Is this a current diagnosis for this admission?: Yes (7) Diabetes Qualifiers: Diabetes mellitus type: type 2 Diabetes mellitus mcfp insulin use: unspecified mcfp insulin use status Diabetes mellitus complication status: with neurologic complications Diabetes mellitus complication detail: with unspecified neuropathy Qualified Code(s): E11.40 - Type 2 diabetes mellitus with diabetic neuropathy, unspecified Is this a current diagnosis for this admission?: Yes (8) HTN (hypertension) Qualifiers: Hypertension type: essential hypertension Qualified Code(s): I10 - Essential (primary) hypertension Is this a current diagnosis for this admission?: Yes (9) History of CVA (cerebrovascular accident) Is this a current diagnosis for this admission?: Yes - Plan Summary Summary: His sodium was trending up and so we switched him to half-normal saline, and his sodium is now normal. His creatinine is very close to his baseline. BUN continues to trend down. I have switched his Procardia XL to a once a day formulation, which is in a capsule that can be dissolved in water and drink. He continues on Protonix twice daily. I have encouraged him to continue with liquids and to try to drink meal replacement shakes like Ensure. We will have him follow-up outpatient with surgery for his stricture. Anticipate discharge home tomorrow. - Time Time Spent with patient: 15-24 minutes Anticipated Discharge Disposition: Home, Self Care Anticipated Discharge Timeframe: within 24 hours
[2020-08-07 05:35] LABS: ANION GAP 12 (5-19); BLOOD UREA NITROGEN 34 mg/dL (7-20); CALCIUM 8.6 mg/dL (8.4-10.2); CARBON DIOXIDE 20 mmol/L (22-30); CHLORIDE 112 mmol/L (98-107); GLUCOSE 114 mg/dL (75-110); POTASSIUM 4.1 mmol/L (3.6-5.0)
[2020-08-07] MEDS: NIFEDIPINE 10 MG CAPSULE PO SCH ×2 (05:49→15:25)
[2020-08-07] MEDS: 1/2 NORMAL SALINE 1,000 ML IV PRN (05:55)
[2020-08-07] MEDS: INSULIN REG, HUMAN 100 UNIT/ML 3 ML VIAL (PYX) SUBCUT SCH ×3 (09:51→15:21)
[2020-08-07] MEDS: CEFTRIAXONE 1 GM/D5W RTU 1 GM/50 ML RTUPB IV SCH (09:52)
--- NOTE | 2020-08-07 15:07 | PDOC DISCHARGE SUMMARY ---
Impression - Admit/DC Date/PCP Admission Date/Primary Care Provider: 07/31/20 15:07 Discharge Date: 08/07/20 - Discharge Diagnosis (1) Acute on chronic renal failure Is this a current diagnosis for this admission?: Yes (2) Acute hyperkalemia Is this a current diagnosis for this admission?: Yes (3) Dehydration Is this a current diagnosis for this admission?: Yes (4) Dysphagia Is this a current diagnosis for this admission?: Yes (5) Hiatal hernia with gastroesophageal reflux disease and esophagitis Is this a current diagnosis for this admission?: Yes (6) UTI (urinary tract infection) Is this a current diagnosis for this admission?: Yes (7) Diabetes Is this a current diagnosis for this admission?: Yes (8) HTN (hypertension) Is this a current diagnosis for this admission?: Yes (9) History of CVA (cerebrovascular accident) Is this a current diagnosis for this admission?: Yes - Assessment Summary: His sodium was trending up and so we switched him to half-normal saline, and his sodium is now normal. His creatinine is very close to his baseline. BUN continues to trend down. I have switched his Procardia XL to a once a day formulation, which is in a capsule that can be dissolved in water and drink. He continues on Protonix twice daily. I have encouraged him to continue with liquids and to try to drink meal replacement shakes like Ensure. We will have him follow-up outpatient with surgery for his stricture. Anticipate discharge home tomorrow. - Additional Information Resuscitation Status: Do Not Resuscitate Discharge Diet: Full Liquids Discharge Activity: Activity As Tolerated Referrals: [facility] [Outside] SENTHIL DEAL MD [ACTIVE STAFF] - 08/20/20 9:00 am (1-2 weeks) Prescriptions: Nifedipine [Procardia 10 mg Capsule] 10 mg PO Q8 #90 capsule Home Medications: Acetaminophen [Tylenol] 650 mg PO Q4HP PRN 06/11/20 Ferrous Sulfate [Ferosul] 325 mg PO DAILY 06/11/20 Pantoprazole Sodium 40 mg PO BID 30 Days #60 tablet. 06/15/20 Nifedipine [Procardia 10 mg Capsule] 10 mg PO Q8 #90 capsule 08/07/20 History of Present Illiness History of Present Illness: CHRISSY NANCE is a 60 year old male resident of assisted living, history of stroke, hypertension came to the emergency room with complaints of unable to take anything by mouth. Patient has a recent history of admission for upper GI bleed status post endoscopy was done at this time. Barium swallow was done in the emergency room indicated of narrowing of the distal esophagus. Contrast is going through the esophagus. Medical consult was called for admission for management of hyperkalemia, acute kidney injury. Dr. Deal agreed to see the patient as an outpatient in his office. Hospital Course Hospital Course: He was given IV fluids and his creatinine has returned to his baseline. His sodium trended up at 1 point and required dilute fluid and this returned his sodium back to normal. He is received sufficient treatment for Klebsiella UTI and will not need any further antibiotics after the hospital. We had to switch up his blood pressure medication because he said he could not swallow the pill, even though he demonstrated one time that he could. We changed him to nifedipine immediate release capsules which can be opened up and dissolve in a liquid which he can swallow. He continued to insist that he could not swallow, but he could pass liquids without any problems. He had a barium esophagram which showed that he does have a stricture but he can pass thin liquids without any trouble. I have recommended that he continue on liquids and that he drink a meal supplement such as boost or Ensure until he can follow-up in the office in [address] Deal for stricture dilation. His labs and examination were reassuring and he was discharged in stable condition. Physical Exam Vital Signs: Temp Pulse Resp BP Pulse Ox 97.3 F 88 23 H 131/90 H 100 08/07/20 11:18 08/07/20 11:18 08/07/20 11:18 08/07/20 11:18 08/07/20 11:18 Intake & Output 08/06/20 08/07/20 08/08/20 06:59 06:59 06:59 Intake Total 1200 2404 170 Output Total 1775 1125 400 Balance -575 1279 -230 Weight 56.2 kg 37.1 kg General appearance: PRESENT: no acute distress, cooperative, disheveled, thin Respiratory exam: PRESENT: decreased breath sounds Cardiovascular exam: PRESENT: RRR. ABSENT: diastolic murmur, rubs, systolic murmur GI/Abdominal exam: PRESENT: normal bowel sounds, soft. ABSENT: distended, guarding, mass, organolmegaly, rebound, tenderness Extremities exam: PRESENT: full ROM. ABSENT: calf tenderness, clubbing, pedal edema Neurological exam: PRESENT: alert, awake, oriented to person, oriented to place, oriented to time, oriented to situation, other - Patient has a chronic right- sided weakness. Psychiatric exam: PRESENT: appropriate affect, normal mood. Results Laboratory Results: WBC 13.7 10^3/uL (4.0-10.5) H 08/04/20 04:42 RBC 3.68 10^6/uL (4.35-5.55) L 08/04/20 04:42 Hgb 10.3 g/dL (13.5-17.0) L 08/04/20 04:42 Hct 31.0 % (37.9-51.0) L 08/04/20 04:42 MCV 84 fl (80-97) 08/04/20 04:42 MCH 27.9 pg (27.0-33.4) 08/04/20 04:42 MCHC 33.1 g/dL (32.0-36.0) 08/04/20 04:42 RDW 14.9 % (11.5-14.0) H 08/04/20 04:42 Plt Count 174 10^3/uL (150-450) 08/04/20 04:42 Lymph % (Auto) 6.3 % (13-45) L 08/04/20 04:42 [place] % (Auto) 6.0 % (3-13) 08/04/20 04:42 Eos % (Auto) 0.0 % (0-6) 08/04/20 04:42 Baso % (Auto) 0.2 % (0-2) 08/04/20 04:42 Absolute Neuts (auto) 12.0 10^3/uL (1.7-8.2) H 08/04/20 04:42 Absolute Lymphs (auto) 0.9 10^3/uL (0.5-4.7) 08/04/20 04:42 Absolute Monos (auto) 0.8 10^3/uL (0.1-1.4) 08/04/20 04:42 Absolute Eos (auto) 0.0 10^3/uL (0.0-0.6) 08/04/20 04:42 Absolute Basos (auto) 0.0 10^3/uL (0.0-0.2) 08/04/20 04:42 Total Counted 100 08/02/20 13:09 Seg Neutrophils % 87.5 % (42-78) H 08/04/20 04:42 Seg Neuts % (Manual) 92 % (42-78) H 08/02/20 13:09 Lymphocytes % (Manual) 8 % (13-45) L 08/02/20 13:09 Monocytes % (Manual) 0 % (3-13) L 08/02/20 13:09 Eosinophils % (Manual) 0 % (0-6) 08/02/20 13:09 Basophils % (Manual) 0 % (0-2) 08/02/20 13:09 Abs Neuts (Manual) 8.8 10^3/uL (1.7-8.2) H 08/02/20 13:09 Abs Lymphs (Manual) 0.8 10^3/uL (0.5-4.7) 08/02/20 13:09 Abs Monocytes (Manual) 0.0 10^3/uL (0.1-1.4) L 08/02/20 13:09 Absolute Eos (Manual) 0.0 10^3/uL (0.0-0.6) 08/02/20 13:09 Abs Basophils (Manual) 0.0 10^3/uL (0.0-0.2) 08/02/20 13:09 Platelet Estimate Cancelled 08/02/20 11:57 Platelet Comment ADEQUATE 08/02/20 13:09 Anisocytosis SLIGHT 08/02/20 13:09 Ovalocytes SLIGHT 08/02/20 13:09 PT 13.5 SEC (11.4-15.4) 08/01/20 08:51 INR 1.01 08/01/20 08:51 Sodium 144.0 mmol/L (137-145) 08/07/20 04:22 Potassium 4.1 mmol/L (3.6-5.0) 08/07/20 04:22 Chloride 112 mmol/L (98-107) H 08/07/20 04:22 Carbon Dioxide 20 mmol/L (22-30) L 08/07/20 04:22 Anion Gap 12 (5-19) 08/07/20 04:22 BUN 34 mg/dL (7-20) H 08/07/20 04:22 Creatinine 2.42 mg/dL (0.52-1.25) H 08/07/20 04:22 Est GFR ( Amer) 33 (>60) L 08/07/20 04:22 Est GFR (MDRD) Non-Af 27 (>60) L 08/07/20 04:22 Glucose 114 mg/dL (75-110) H 08/07/20 04:22 POC Glucose 134 mg/dL (70-110) H 08/07/20 11:20 Hemoglobin A1c % 4.2 % (4.7-6.0) L 08/01/20 08:51 Calcium 8.6 mg/dL (8.4-10.2) 08/07/20 04:22 Magnesium 2.0 mg/dL (1.6-2.3) 08/04/20 04:42 Total Bilirubin 0.3 mg/dL (0.2-1.3) 08/04/20 04:42 Direct Bilirubin 0.3 mg/dL (0.0-0.4) 08/04/20 04:42 Neonat Total Bilirubin Not Reportable 08/04/20 04:42 Neonat Direct Bilirubin Not Reportable 08/04/20 04:42 Neonat Indirect Bili Not Reportable 08/04/20 04:42 AST 16 U/L (17-59) L 08/04/20 04:42 ALT 4 U/L (<50) 08/04/20 04:42 Alkaline Phosphatase 88 U/L (38-126) 08/04/20 04:42 Troponin I < 0.012 ng/mL 08/01/20 08:51 NT-Pro-B Natriuret Pep 2100 pg/mL (<125) H 08/01/20 08:51 Total Protein 6.5 g/dL (6.3-8.2) 08/04/20 04:42 Albumin 3.6 g/dL (3.5-5.0) 08/04/20 04:42 Triglycerides 116 mg/dL (<150) 08/01/20 08:51 Cholesterol 178.58 mg/dL (0-200) 08/01/20 08:51 LDL Cholesterol Direct 99 mg/dL (<100) 08/01/20 08:51 VLDL Cholesterol 23.0 mg/dL (10-31) 08/01/20 08:51 HDL Cholesterol 34 mg/dL (>40) L 08/01/20 08:51 Amylase 71 U/L (30-110) 08/01/20 08:51 Lipase 81.0 U/L (23-300) 08/01/20 08:51 TSH 0.64 uIU/mL (0.47-4.68) 08/01/20 08:51 Urine Color YELLOW 07/31/20 14:10 Urine Appearance SLIGHTLY-CLOUDY 07/31/20 14:10 Urine pH 5.0 (5.0-9.0) 07/31/20 14:10 Ur Specific [place] 1.011 07/31/20 14:10 Urine Protein 100 mg/dL (NEGATIVE) H 07/31/20 14:10 Urine Glucose (UA) NEGATIVE mg/dL (NEGATIVE) 07/31/20 14:10 Urine Ketones TRACE mg/dL (NEGATIVE) H 07/31/20 14:10 Urine Blood NEGATIVE (NEGATIVE) 07/31/20 14:10 Urine Nitrite NEGATIVE (NEGATIVE) 07/31/20 14:10 Urine Bilirubin NEGATIVE (NEGATIVE) 07/31/20 14:10 Urine Urobilinogen NEGATIVE mg/dL (<2.0) 07/31/20 14:10 Ur Leukocyte Esterase MODERATE (NEGATIVE) H 07/31/20 14:10 Urine WBC (Auto) 36 /HPF 07/31/20 14:10 Urine RBC (Auto) 1 /HPF 07/31/20 14:10 Urine Bacteria (Auto) 3+ /HPF 07/31/20 14:10 Urine Mucus (Auto) RARE /LPF 07/31/20 14:10 Urine Ascorbic Acid NEGATIVE (NEGATIVE) 07/31/20 14:10 Influenza A (RT-PCR) NEGATIVE (NEGATIVE) 08/02/20 15:50 Influenza B (RT-PCR) NEGATIVE (NEGATIVE) 08/02/20 15:50 RSV (RT-PCR) NEGATIVE (NEGATIVE) 08/02/20 15:50 SARS-CoV-2 Rap RNA(RT-PCR) NEGATIVE (NEGATIVE) 08/02/20 15:50 Slides for Path Review Cancelled 08/02/20 11:57 07/31/20 08/01/20 08/01/20 19:25 01:39 08:51 Troponin I < 0.012 < 0.012 < 0.012 NT-Pro-B Natriuret Pep 08/01/20 08:51 Troponin I NT-Pro-B Natriuret Pep 2100 H Impressions: Esophagus X-Ray 07/31/20 09:45 IMPRESSION: PERSISTENT NARROWING OF THE MID TO DISTAL 3RD ESOPHAGUS. SMALL HIATAL HERNIA WITH MARKED GASTROESOPHAGEAL REFLUX. KUB X-Ray 08/02/20 00:00 IMPRESSION: 1. Retained oral contrast in multiple left-sided colonic diverticulae related to CT examination dating back to 06/11/2020. Correlation suggested. 2. NO RADIOGRAPHIC EVIDENCE FOR ACUTE ABDOMINAL DISEASE. Plan Time Spent: Greater than 30 Minutes Stroke Is this a Stroke Patient?: No Acute Heart Failure Is this a Heart Failure Patient?: No
[2020-08-07 17:11] VITALS: BP 159/102
== END 2020-08-07 17:15 | DRG 682 ==
LOC: ER 08:52 → EH 15:07 → 4N 18:44
PROVIDERS: ADMIT Internal Medicine; ATTEND Family Medicine
DX: N17.9 Acute kidney failure, unspecified (principal); K26.4 Chronic or unspecified duodenal ulcer with hemorrhage; K21.01 Gastro-esophageal reflux disease with esophagitis, with bleeding; N30.00 Acute cystitis without hematuria; I69.351 Hemiplegia and hemiparesis following cerebral infarction affecting right dominant side; Z20.822 Contact with and (suspected) exposure to COVID-19; E87.5 Hyperkalemia; E86.0 Dehydration; K44.9 Diaphragmatic hernia without obstruction or gangrene; E11.22 Type 2 diabetes mellitus with diabetic chronic kidney disease; B96.1 Klebsiella pneumoniae [K. pneumoniae] as the cause of diseases classified elsewhere; I12.9 Hypertensive chronic kidney disease with stage 1 through stage 4 chronic kidney disease, or unspecified chronic kidney disease; R13.10 Dysphagia, unspecified; N18.4 Chronic kidney disease, stage 4 (severe); F50.89 Other specified eating disorder; E11.40 Type 2 diabetes mellitus with diabetic neuropathy, unspecified; Z66 Do not resuscitate; Z79.899 Other long term (current) drug therapy
CPT/HCPCS: 36415; 74018; 74220; 80048; 80053; 80061; 81001; 82150; 82962; 83036; 83690; 83735; 83880; 84443; 84484; 85025; 85610; 87040; 87077; 87086; 87088; 87150; 87186; 93005; 93010; 96360; 96361; 99285; 0241U; C9113; C9803; J0696; J1650; J1815; J2405; J2550; J3490; J7030